=== PATIENT | male | born 1965 | race Caucasian/White ===

== ENCOUNTER 2018-04-02 15:32 | Observation (INO) | payer OTHER, SELFPAY ==
[2018-04-02] VITALS (11 sets, daily range): BP systolic 112–147; BP diastolic 68–98; PULSE 92–122; RESP 18–22; TEMP 36.7–40.1; O2SAT 92–99; BMI 30.4
--- NOTE | 2018-04-02 15:50 | DI.RAD.S_ITS ---
PROCEDURE: XR CHEST 1V INDICATIONS: Fever of unknown origin TECHNIQUE: One view of the chest was acquired. COMPARISON: [facility], , CHEST 1 VIEW, 06/24/2014, 1:37. FINDINGS: Surgical changes and devices: None. Lungs and pleura: No pleural effusions or pneumothorax. Lungs are clear. Mediastinum: Mediastinal contours appear normal. Heart size is normal. Bones and chest wall: No suspicious bony lesions. Overlying soft tissues appear unremarkable. IMPRESSION: Reduced inspiratory volume, no pneumonia found. A followup PA and lateral chest plain film may be warranted to provide improved visualization of the lower third of the lung parenchyma, largely obscured by reduced inspiration. Dictated by: Sandor Love M.D. on 04/02/2018 at 16:48 Approved by: Sandor Love M.D. on 04/02/2018 at 16:49
[2018-04-02] MEDS: ACETAMINOPHEN 325 MG TABLET 975 MG PO (16:13)
[2018-04-02] MEDS: SODIUM CHLORIDE 0.9% 1,000 ML 1000 ML IV (16:13)
[2018-04-02 16:16] LABS: INR 1.4 (0.9-1.3); Prothrombin Time 15.1 SECONDS (10.1-12.7)
[2018-04-02 16:19] LABS: PTT Partial Thromboplastin Tim 41 SECONDS (26.4-36.2)
--- NOTE | 2018-04-02 16:22 | ED.FEVER ---
HPI - Fever General Chief Complaint: Fever Stated Complaint: EXHAUSTED TYROID PROBLEM Time Seen by Provider: 04/02/18 15:49 Source: patient and family Mode of arrival: ambulatory Limitations: no limitations History of Present Illness HPI Narrative: Patient is a 52-year-old male with a history of Tio's disease and hypothyroidism brought in by his daughter for concerns of altered mental status and fevers. Patient's daughter reports that patient was at his normal state health last evening when his daughter state that he drank ?bad milk? patient's daughter states that afterwards he started throwing up. Then developed fever. He did take an extra dose of his [place]'s medication last night because he thought that he could potentially be in a adrenal crisis. She states that his symptoms continued today. She called him multiple times today while she was at work and noticed that he was becoming less and less alert. She brought him in the emergency department for evaluation. Patient was unable to provide any significant history. Related Data Home Medications Medication Instructions Recorded Confirmed levothyroxine 100 mcg PO DAILY #0 06/07/12 04/02/18 fludrocortisone 0.1 mg PO DAILY 04/02/18 04/02/18 hydrocortisone 30 mg PO DAILY 04/02/18 04/02/18 [facility] Medical History Addisons disease (Acute) Hypothyroid (Acute) Atrial fibrillation (Ruled-out) Dementia (Ruled-out) Surgical History No pertinent past surgical history (Acute) Exam Initial Vital Signs Initial Vital Signs: Vital Signs Temperature 104.1 F H 04/02/18 15:54 Pulse Rate 120 H 04/02/18 15:54 Respiratory Rate 19 04/02/18 15:54 Blood Pressure 129/89 H 04/02/18 15:54 Pulse Oximetry 99 04/02/18 15:54 Const General: well developed, well groomed and ill appearing Orientation: alert, awake, not oriented x3, oriented to person, not oriented to time and confused HENIA Head: normal to inspection and normocephalic Resp Effort & Inspection: normal respiratory effort Auscultation: clear to auscultation bilaterally Cardio Rate: tachycardic Rhythm: regular rhythm Pulses: radial pulses present GI Inspection: non-distended Palpation: soft and No tender Skin Lesions: no lesions Rashes: no rashes Neuro General: alert, awake and moves all extremities Extrem General: normal to inspection Psych Appearance: grossly normal and well kempt Scores GCS [place] coma scale eye opening: Spontaneous [place] coma scale verbal response: Orientated [place] coma scale motor response: Obey commands [place] coma scale total score: 15 Course Orders Ordered: ED Orders 04/02/18 15:45 Aldosterone Stat Blood Culture Stat Complete Blood Count AUTO DIFF Stat Comprehensive Metabolic Panel Stat Cortisol Random Stat Lactate (Lactic Acid) Stat Lipase Stat Partial Thromboplastin Time Stat Procalcitonin Stat Prothrombin Time INR Stat Thyroid Stimulating Hormone Stat Triiodothyronine T3 Free Stat 04/02/18 15:50 XR chest 1V Stat Urinalysis and Microscopic Stat 04/03/18 Comprehensive Metabolic Panel Routine 04/03/18 05:00 Basic Metabolic Panel Routine Fludrocortisone Acetate (Florinef) 0.1 mg PO DAILY [facility] Heparin Sodium (Porcine) (Heparin) 5,000 unit SUBCUT BID [facility] Hydrocortisone (Solu-Cortef) 100 mg IV Q6HR [facility] Sodium Chloride (Normal Saline 0.9%) 1,000 mls @ 200 mls/hr IV CONT MANUEL Last Admin: 04/02/18 16:45 Dose: 200 mls/hr Ciprofloxacin (Cipro) 400 mg in 200 mls @ 200 mls/hr IV Q12H MANU[facility] Dextrose/Sodium Chloride (Dextrose 5%-0.9% Ns) 1,000 mls @ 150 mls/hr IV CONT MANUEL Levothyroxine Sodium (Synthroid) 100 mcg PO DAILY [facility] Pantoprazole Sodium (Protonix) 40 mg IV DAILY [facility] Discontinued Medications Acetaminophen (Tylenol) 975 mg PO NOW ONE Stop: 04/02/18 15:51 Last Admin: 04/02/18 16:13 Dose: 975 mg Dexamethasone (Decadron) 4 mg IV NOW ONE Stop: 04/02/18 16:33 Last Admin: 04/02/18 16:44 Dose: 4 mg Hydrocortisone (Cortef) 30 mg PO DAILY [facility] Sodium Chloride (Normal Saline 0.9%) 1,000 mls @ 1,000 mls/hr IV BOLUS ONE Stop: 04/02/18 16:49 Last Admin: 04/02/18 16:13 Dose: 1,000 mls/hr Vital Signs - 8 hr 04/02/18 15:54 04/02/18 16:13 04/02/18 16:49 Temperature 104.1 F H Pulse Rate 120 H 122 H 101 H Respiratory Rate 19 22 22 Blood Pressure 129/89 H Blood Pressure [Right Arm] 147/90 H 132/98 H Pulse Oximetry 99 96 04/02/18 17:32 04/02/18 17:36 04/02/18 17:57 Temperature 98.1 F 98.1 F Pulse Rate 100 H Respiratory Rate 22 Blood Pressure Blood Pressure [Right Arm] 116/75 Pulse Oximetry 99 04/02/18 18:02 Temperature 98.1 F Pulse Rate Respiratory Rate Blood Pressure Blood Pressure [Right Arm] Pulse Oximetry MDM - Fever Medical Records Attestation: I reviewed the patient's medical records. Lab Data Attestation: I reviewed the patient's lab results. Result diagrams: 04/02/18 15:45 04/02/18 15:45 Lab Results 04/02/18 04/02/18 04/02/18 Range/Units 15:45 15:45 15:45 WBC 9.2 (4.5-11.0) X10^3/uL RBC 5.83 (4.5-5.9) X10^6/uL Hgb 17.4 (13.5-17.5) g/dL Hct 49.6 (41-53) % MCV 85.1 (80-100) fL MCH 29.9 (26-34) PG MCHC 35.1 (30-36) % RDW 14.4 (11.6-14.8) % Plt Count 173 (150-400) X10^3/uL Neut % (Auto) 58.4 (50-75) % Lymph % (Auto) 29.0 (25-40) % [place] % (Auto) 10.8 (3-14) % Eos % (Auto) 1.3 L (2-4) % Baso % (Auto) 0.5 (0-2) % Neut # (Auto) 5400 (6432-0448) /uL PT 15.1 H (10.1-12.7) SECONDS INR 1.4 H (0.9-1.3) APTT 41 H (26.4-36.2) SECONDS Sodium (137-145) mmol/L Potassium (3.4-5.1) mmol/L Chloride (98-107) mmol/L Carbon Dioxide (22-32) mmol/L BUN (9-20) mg/dL Creatinine (0.66-1.25) mg/dL Estimated GFR (>60) mL/min BUN/Creatinine Ratio (6-22) Glucose (70-100) mg/dL Lactate (0.7-2.1) mmol/L Calcium (8.4-10.2) mg/dL Total Bilirubin (0.2-1.3) mg/dL AST (17-59) IU/L ALT (21-72) IU/L Alkaline Phosphatase (38-126) U/L Total Protein (6.3-8.2) g/dL Albumin (3.5-5.0) g/dL Globulin (1.7-4.1) g/dL Albumin/Globulin Ratio (1.0-2.8) Lipase (23-300) U/L Procalcitonin 1.54 H (<0.5) ng/mL TSH (0.47-4.68) uIU/mL Free T3 (2.77-5.27) pg/mL Random Cortisol ug/dL 04/02/18 04/02/18 04/02/18 Range/Units 15:45 15:45 15:45 WBC (4.5-11.0) X10^3/uL RBC (4.5-5.9) X10^6/uL Hgb (13.5-17.5) g/dL Hct (41-53) % MCV (80-100) fL MCH (26-34) PG MCHC (30-36) % RDW (11.6-14.8) % Plt Count (150-400) X10^3/uL Neut % (Auto) (50-75) % Lymph % (Auto) (25-40) % [place] % (Auto) (3-14) % Eos % (Auto) (2-4) % Baso % (Auto) (0-2) % Neut # (Auto) (1086-0122) /uL PT (10.1-12.7) SECONDS INR (0.9-1.3) APTT (26.4-36.2) SECONDS Sodium 140 (137-145) mmol/L Potassium 3.7 (3.4-5.1) mmol/L Chloride 97 L (98-107) mmol/L Carbon Dioxide 26 (22-32) mmol/L BUN 17 (9-20) mg/dL Creatinine 1.70 H (0.66-1.25) mg/dL Estimated GFR 42.7 L (>60) mL/min BUN/Creatinine Ratio 10.0 (6-22) Glucose 87 (70-100) mg/dL Lactate 1.2 (0.7-2.1) mmol/L Calcium 9.0 (8.4-10.2) mg/dL Total Bilirubin 1.9 H (0.2-1.3) mg/dL AST 50 (17-59) IU/L ALT 26 (21-72) IU/L Alkaline Phosphatase 78 (38-126) U/L Total Protein 8.3 H (6.3-8.2) g/dL Albumin 4.8 (3.5-5.0) g/dL Globulin 3.5 (1.7-4.1) g/dL Albumin/Globulin Ratio 1.4 (1.0-2.8) Lipase 123 (23-300) U/L Procalcitonin (<0.5) ng/mL TSH 2.36 (0.47-4.68) uIU/mL Free T3 2.76 L (2.77-5.27) pg/mL Random Cortisol ug/dL 04/02/18 Range/Units 15:45 WBC (4.5-11.0) X10^3/uL RBC (4.5-5.9) X10^6/uL Hgb (13.5-17.5) g/dL Hct (41-53) % MCV (80-100) fL MCH (26-34) PG MCHC (30-36) % RDW (11.6-14.8) % Plt Count (150-400) X10^3/uL Neut % (Auto) (50-75) % Lymph % (Auto) (25-40) % [place] % (Auto) (3-14) % Eos % (Auto) (2-4) % Baso % (Auto) (0-2) % Neut # (Auto) (6242-3465) /uL PT (10.1-12.7) SECONDS INR (0.9-1.3) APTT (26.4-36.2) SECONDS Sodium (137-145) mmol/L Potassium (3.4-5.1) mmol/L Chloride (98-107) mmol/L Carbon Dioxide (22-32) mmol/L BUN (9-20) mg/dL Creatinine (0.66-1.25) mg/dL Estimated GFR (>60) mL/min BUN/Creatinine Ratio (6-22) Glucose (70-100) mg/dL Lactate (0.7-2.1) mmol/L Calcium (8.4-10.2) mg/dL Total Bilirubin (0.2-1.3) mg/dL AST (17-59) IU/L ALT (21-72) IU/L Alkaline Phosphatase (38-126) U/L Total Protein (6.3-8.2) g/dL Albumin (3.5-5.0) g/dL Globulin (1.7-4.1) g/dL Albumin/Globulin Ratio (1.0-2.8) Lipase (23-300) U/L Procalcitonin (<0.5) ng/mL TSH (0.47-4.68) uIU/mL Free T3 (2.77-5.27) pg/mL Random Cortisol < 0.16 ug/dL Imaging Data Chest x-ray: Radiologist's impression: [place] [address] XRay Report Signed Patient: Jacob Mcdonough [facility]#: [id number] : 1965Acct:[id number] Age/Sex: 52 / MDate of Service: 04/02/18 Loc: ED Accession Number: [id number] Procedure: XR chest 1V Ordering Provider: Anshu Shin D.O. PROCEDURE: XR CHEST 1V INDICATIONS: Fever of unknown origin TECHNIQUE: One view of the chest was acquired. COMPARISON: [facility] , CHEST 1 VIEW, 06/24/2014, 1:37. FINDINGS: Surgical changes and devices: None. Lungs and pleura: No pleural effusions or pneumothorax. Lungs are clear. Mediastinum: Mediastinal contours appear normal. Heart size is normal. Bones and chest wall: No suspicious bony lesions. Overlying soft tissues appear unremarkable. IMPRESSION: Reduced inspiratory volume, no pneumonia found. A followup PA and lateral chest plain film may be warranted to provide improved visualization of the lower third of the lung parenchyma, largely obscured by reduced inspiration. Dictated by: Sandro Love M.D. on 04/02/2018 at 16:48 Approved by: Sandor Love M.D. on 04/02/2018 at 16:49 [facility] Narrative Medical decision making narrative: 52-year-old male with what sounds like a gastroenteritis that occurred last evening. His daughter reports that he did not take his steroids this morning because he was feeling so poorly. Patient was somewhat unable/unwilling to provide answers to questions upon arrival. Was tachycardic which improved with fluids. Does not have an elevated white blood cell count. Chest x-ray was negative. Initially he reported headache but no neck pain then upon re-evaluation who reported no headache. I have low concern for meningitis. Urinalysis still pending. No skin changes concerning for cellulitis. I feel that his fever and tachycardia related to the gastritis from last evening. Will hold on antibiotics for now. He was given dexamethasone here in the emergency department. Discussed the case with Dr. Warren with Internal Medicine who accepts the patient for admission and continued evaluation and treatment. He agreed with no antibiotics for now. Blood cultures ordered. Discharge Plan Departure Patient Disposition: Admitted As Inpatient Clinical Impression: Fever of unknown origin, Gastroenteritis, Tio's disease, Hypothyroidism Discharge Date/Time: 04/02/18 18:03 Interventions: ED Discharge Assessment Last Done: 04/02/18 18:02 Admit Date/Time: 04/02/18 17:38 Admit Provider: John Paul Murdock
[2018-04-02 16:24] LABS: Lactate (Lactic Acid) 1.2 mmol/L (0.7-2.1)
[2018-04-02 16:25] LABS: Alanine Aminotransferase 26 IU/L (21-72); Albumin 4.8 g/dL (3.5-5.0); Albumin Globulin Ratio 1.4 (1.0-2.8); Alkaline Phosphatase 78 U/L (38-126); Aspartate Aminotransferase 50 IU/L (17-59); Bilirubin Total 1.9 mg/dL (0.2-1.3); Blood Urea Nitrogen 17 mg/dL (9-20); Carbon Dioxide 26 mmol/L (22-32); Chloride 97 mmol/L (98-107); Estimated Glomerular Filt Rate 42.7 mL/min (>60); Globulin 3.5 g/dL (1.7-4.1); Glucose 87 mg/dL (70-100); HEMOLYSIS 16 (0-50); Lipase 123 U/L (23-300); Potassium 3.7 mmol/L (3.4-5.1); Sodium 140 mmol/L (137-145); Total Protein 8.3 g/dL (6.3-8.2)
[2018-04-02 16:30] LABS: Add Manual Diff / Slide Review NO; Basophils Percent Auto 0.5 % (0-2); Eosinophils Percent Auto 1.3 % (2-4); Hematocrit 49.6 % (41-53); Hemoglobin 17.4 g/dL (13.5-17.5); Mean Corpuscular HGB Conc 35.1 % (30-36); Mean Corpuscular Hemoglobin 29.9 PG (26-34); Mean Corpuscular Volume 85.1 fL (80-100); Monocytes Percent Auto 10.8 % (3-14); Neutrophils Absolute Auto 5400 /uL (3000-5900); Neutrophils Percent Auto 58.4 % (50-75); Platelet Count 173 X10^3/uL (150-400); Red Blood Cell Count 5.83 X10^6/uL (4.5-5.9); Red Cell Distribution Width 14.4 % (11.6-14.8); White Blood Cell Count 9.2 X10^3/uL (4.5-11.0)
[2018-04-02] MEDS: DEXAMETHASONE 4 MG/ML VIAL IV (16:44)
[2018-04-02] MEDS: SODIUM CHLORIDE 0.9% 1,000 ML 200 ML IV (16:45)
[2018-04-02 16:56] LABS: Procalcitonin 1.54 ng/mL (<0.5)
[2018-04-02 17:14] LABS: Free T3, Triiodothyronine Free 2.76 pg/mL (2.77-5.27)
--- NOTE | 2018-04-02 17:16 | PC.NURSE ---
Hospitalist here to see
[2018-04-02 17:23] LABS: Cortisol Random < 0.16 ug/dL
[2018-04-02 17:27] LABS: Thyroid Stimulating Hormone 2.36 uIU/mL (0.47-4.68)
--- NOTE | 2018-04-02 19:23 | PM.HP.1 ---
History of Present Illness Date Patient Seen: 04/02/18 Time Patient Seen: 18:23 Chief complaint: EXHAUSTED TYROID PROBLEM Narrative: This very pleasant gentleman who works for the [employer] and has to drive on a lot and came to the ER for feeling lethargic and somewhat obtunded still is sleepy this answers questions sparsely but is very occluding and well oriented His daughter gives a history that he probably had some spoiled milk yesterday and started vomiting since last night patient does not give a history of abdominal pain diarrhea or fever chills and rigors during the ER he had a temperature of 104? occurred once He does not complain of any headache visual blurring or any other neurological symptoms Says he has [place]'s disease diagnosed years ago because of general fatigue he also was found to have hypothyroid both I believe based on a autoimmune disorder Patient History Medical History Addisons disease (Acute) Hypothyroid (Acute) Atrial fibrillation (Ruled-out) Dementia (Ruled-out) Surgical History No pertinent past surgical history (Acute) Comment: He has not had any pituitary surgery Family & Social History Family History: Reviewed 04/02/18 by John Paul Murdock MD Social History: He lives with his daughter and a friend works for the [employer] Tobacco & Substance use: Denies smoking tobacco or drink alcohol Meds Home Medications Medication Instructions Recorded Confirmed Type levothyroxine 100 mcg PO DAILY #0 06/07/12 04/02/18 History fludrocortisone 0.1 mg PO DAILY 04/02/18 04/02/18 History hydrocortisone 30 mg PO DAILY 04/02/18 04/02/18 History Review of Systems Review of Systems A 12 point review of systems other than general fatigue he himself does not complain of any other symptoms the briefly commented on having a headache to the ER doctor but subsequently he says he does not have any headache all other systems are negative Exam Vital Signs (past 8 hours): - 04/02/18 15:54 04/02/18 16:13 04/02/18 16:49 Temperature 104.1 F H Pulse Rate 120 H 122 H 101 H Respiratory Rate 19 22 22 Blood Pressure 129/89 H Blood Pressure [Right Arm] 147/90 H 132/98 H Pulse Oximetry 99 96 04/02/18 17:32 04/02/18 17:36 04/02/18 17:57 Temperature 98.1 F 98.1 F Pulse Rate 100 H Respiratory Rate 22 Blood Pressure Blood Pressure [Right Arm] 116/75 Pulse Oximetry 99 04/02/18 18:02 Temperature 98.1 F Pulse Rate Respiratory Rate Blood Pressure Blood Pressure [Right Arm] Pulse Oximetry Oxygen Delivery Method Room Air Const General: cooperative, healthy appearing, comfortable and well developed Orientation: oriented to person, oriented to place and oriented to time [facility] Head: normal to inspection Ears: hearing grossly normal bilaterally Nose: external nose normal Face and sinus: normal facial exam Eyes Other: conjuctiva injected Neck Neck: normal visual inspection, full ROM and no meningeal signs Thyroid: thyroid normal Resp Effort & Inspection: normal respiratory effort, able to speak in complete sentences, no respiratory distress and no use of accessory muscles Auscultation: clear to auscultation bilaterally Cardio Rate: tachycardic Rhythm: regular rhythm Heart Sounds: S1 normal and S2 normal GI Inspection: normal to inspection Palpation: soft and no hepatosplenomegaly Auscultation: normal bowel sounds Skin General: no rashes or lesions noted Neuro General: oriented (place person ), no meningeal signs and no focal motor deficits Cranial Nerves: CN's II-XI intact bilaterally Speech: speech normal Motor: muscle tone normal throughout Extrem Other: nil edema Psych Appearance: grossly normal Mood: congruent mood Affect: normal affect Thought Process: normal Judgment: judgment good Objective Labs Result Diagrams: 04/02/18 15:45 04/02/18 15:45 Labs: Laboratory Results - last 24 hr 04/02/18 04/02/18 04/02/18 15:45 15:45 15:45 WBC 9.2 RBC 5.83 Hgb 17.4 Hct 49.6 MCV 85.1 MCH 29.9 MCHC 35.1 RDW 14.4 Plt Count 173 Neut % (Auto) 58.4 Lymph % (Auto) 29.0 [place] % (Auto) 10.8 Eos % (Auto) 1.3 L Baso % (Auto) 0.5 Neut # (Auto) 5400 PT 15.1 H INR 1.4 H APTT 41 H Sodium Potassium Chloride Carbon Dioxide BUN Creatinine Estimated GFR BUN/Creatinine Ratio Glucose Lactate Calcium Total Bilirubin AST ALT Alkaline Phosphatase Total Protein Albumin Globulin Albumin/Globulin Ratio Lipase Procalcitonin 1.54 H TSH Free T3 Random Cortisol 04/02/18 04/02/18 04/02/18 15:45 15:45 15:45 WBC RBC Hgb Hct MCV MCH MCHC RDW Plt Count Neut % (Auto) Lymph % (Auto) [place] % (Auto) Eos % (Auto) Baso % (Auto) Neut # (Auto) PT INR APTT Sodium 140 Potassium 3.7 Chloride 97 L Carbon Dioxide 26 BUN 17 Creatinine 1.70 H Estimated GFR 42.7 L BUN/Creatinine Ratio 10.0 Glucose 87 Lactate 1.2 Calcium 9.0 Total Bilirubin 1.9 H AST 50 ALT 26 Alkaline Phosphatase 78 Total Protein 8.3 H Albumin 4.8 Globulin 3.5 Albumin/Globulin Ratio 1.4 Lipase 123 Procalcitonin TSH 2.36 Free T3 2.76 L Random Cortisol 04/02/18 15:45 WBC RBC Hgb Hct MCV MCH MCHC RDW Plt Count Neut % (Auto) Lymph % (Auto) [place] % (Auto) Eos % (Auto) Baso % (Auto) Neut # (Auto) PT INR APTT Sodium Potassium Chloride Carbon Dioxide BUN Creatinine Estimated GFR BUN/Creatinine Ratio Glucose Lactate Calcium Total Bilirubin AST ALT Alkaline Phosphatase Total Protein Albumin Globulin Albumin/Globulin Ratio Lipase Procalcitonin TSH Free T3 Random Cortisol < 0.16 Assessment & Plan Plan: Assessment/Plan Narrative: 1. Acute febrile illness with a temperature 104? but the patient does not look toxic the white count cells are normal chest x-ray is normal 2. Mild elevation of bilirubin with no other enzyme elevation in the liver may be due to Gilbert's fasting 3. Conjunctival injections of this possible acute viral syndrome 4. history of vomiting following drinking possibly spoiled milk this suggests possible gastroenteritis 5. Known [place]'s disease and autoimmune basis on as supplement with his cortisone as well as fludrocortisone 6. Known hypothyroid on supplement Plan to be admitted to ICU monitoring IV fluids IV Cipro and Flagyl in case it is an gastrointestinal infection though highly likely to be viral Will give IV cortisone in place of his oral supplement at a good dose to cover possible stress of illness His hemoglobin is 17.1 most likely due to dehydration BUN and creatinine and a slight elevation of creatinine and BUN is normal will continue to monitor the renal function Time Spent With Patient Time with patient: Greater than 35 minutes
[2018-04-02] MEDS: CIPROFLOXACIN 400 MG/200 ML PIGGYBACK 200 MG IV (19:45)
[2018-04-02] MEDS: HYDROCORTISONE 100 MG/2 ML VIAL IV ×2 (19:45→23:59)
[2018-04-02] MEDS: metroNIDAZOLE 500 MG/100 ML PIGGYBACK 100 MG IV (20:59)
[2018-04-02] MEDS: DEXTROSE 5%-0.9% NS 1,000 ML 150 ML IV (21:05)
[2018-04-02] MEDS: HEPARIN 5,000 UNIT/ML VIAL 5000 UNIT SUBCUT (21:05)
--- NOTE | 2018-04-02 21:55 | PC.NURSE ---
Evening Shift Note Pt arrived to floor alert to speech, answering all questions appropriately. VSS, 94% on RA, no complaints of pain. Tele SR w/ PVCs. Awaiting BC and UA results. Pt using urinal at bedside and able to turn self in bed. R AC PIV w/ D5NS @ 150ml/hr.
[2018-04-02 22:06] LABS: Bacteria Urine None Seen; WBC Urine None Seen (0-5/HPF)
[2018-04-02 22:08] LABS: Appearance Urine UA CLEAR; Bilirubin Urine UA NEGATIVE (NEGATIVE); Color Urine UA YELLOW; Glucose Urine UA NEGATIVE (Normal); Ketones Urine UA 1+ (NEGATIVE); Leukocyte Esterase Urine UA NEGATIVE (NEGATIVE); Nitrite Urine UA Negative (Negative); Occult Blood Urine UA 1+ (Negative); Protein Urine UA TRACE (Negative); Urobilinogen Urine UA 0.2 E.U./dL (0.2)
[2018-04-02 22:16] LABS: Culture Indicated Urine Cult Not Indicated; Mucus Urine 2+ (Negative); RBC Urine 1-5/HPF (0-5/HPF); Squamous Epithelial Cell Urine None Seen
[2018-04-03] VITALS: BP 109/72; PULSE 68; RESP 14; TEMP 36.6; O2SAT 95
[2018-04-03] MEDS: DEXTROSE 5%-0.9% NS 1,000 ML 150 ML IV ×2 (04:16→12:08)
[2018-04-03 04:49] VITALS: BP 134/67; PULSE 94; RESP 19; TEMP 36.6; O2SAT 95
[2018-04-03 05:10] LABS: Add Manual Diff / Slide Review NO; Basophils Percent Auto 0.3 % (0-2); Hemoglobin 16.6 g/dL (13.5-17.5); Lymphocytes Percent Auto 14.1 % (25-40); Mean Corpuscular HGB Conc 35.3 % (30-36); Mean Corpuscular Hemoglobin 29.9 PG (26-34); Mean Corpuscular Volume 84.7 fL (80-100); Monocytes Percent Auto 2.3 % (3-14); Neutrophils Absolute Auto 5400 /uL (3000-5900); Neutrophils Percent Auto 83.3 % (50-75); Platelet Count 128 X10^3/uL (150-400); Red Blood Cell Count 5.54 X10^6/uL (4.5-5.9); Red Cell Distribution Width 14.1 % (11.6-14.8); White Blood Cell Count 6.5 X10^3/uL (4.5-11.0)
[2018-04-03] MEDS: metroNIDAZOLE 500 MG/100 ML PIGGYBACK 100 MG IV ×2 (05:34→13:38)
[2018-04-03 05:44] LABS: Alanine Aminotransferase 29 IU/L (21-72); Albumin 3.7 g/dL (3.5-5.0); Albumin Globulin Ratio 1.3 (1.0-2.8); Alkaline Phosphatase 56 U/L (38-126); Aspartate Aminotransferase 59 IU/L (17-59); BUN Creatinine Ratio 13.6 (6-22); Bilirubin Total 1.4 mg/dL (0.2-1.3); Blood Urea Nitrogen 15 mg/dL (9-20); Calcium 8.1 mg/dL (8.4-10.2); Carbon Dioxide 28 mmol/L (22-32); Chloride 102 mmol/L (98-107); Estimated Glomerular Filt Rate > 60.0 mL/min (>60); Globulin 2.8 g/dL (1.7-4.1); Glucose 167 mg/dL (70-100); Potassium 4.1 mmol/L (3.4-5.1); Sodium 141 mmol/L (137-145); Total Protein 6.5 g/dL (6.3-8.2)
[2018-04-03 06:00] LABS: Bilirubin Unconjugated 1.1 mg/dL (0.0-1.1); HEMOLYSIS < 15 (0-50)
[2018-04-03] MEDS: HYDROCORTISONE 100 MG/2 ML VIAL IV ×2 (06:36→11:27)
[2018-04-03 08:00] VITALS: BP 103/76; PULSE 87; RESP 16; TEMP 36.8; O2SAT 96
[2018-04-03] MEDS: LEVOTHYROXINE 100 MCG TABLET PO (08:46)
[2018-04-03] MEDS: FLUDROCORTISONE 0.1 MG TABLET PO (08:46)
[2018-04-03] MEDS: HEPARIN 5,000 UNIT/ML VIAL 5000 UNIT SUBCUT (08:46)
[2018-04-03] MEDS: CIPROFLOXACIN 400 MG/200 ML PIGGYBACK 200 MG IV (08:47)
[2018-04-03] MEDS: PANTOPRAZOLE 40 MG VIAL IV (08:47)
[2018-04-03 11:40] VITALS: BP 123/55; PULSE 97; RESP 16; TEMP 36.9; O2SAT 99
[2018-04-03 11:58] VITALS: BP 123/55; PULSE 97; RESP 16; TEMP 36.9; O2SAT 99
--- NOTE | 2018-04-03 14:05 | PM.PN.1 ---
Subjective Date Patient Seen: 04/03/18 Time Patient Seen: 12:05 Interval history: Admitted yesterday from home with a history of diarrhea and vomiting apparently is was not feeling well after he took spoiled milk he normally takes 30 mg of hydrocortisone the took 1 dose of that with the milk which she thinks could have been spoiled 2 nausea became nauseated and vomited the tablets he took another tablet with the same male can be started developing diarrhea after that he became very weak and his daughter brought him to the emergency room he was somewhat obtunded initially but subsequently was able to answer questions but was lethargic however this morning he feels much better he had a spike of temperature 104? 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 he also has hypothyroid both being supplemented the hydrocortisone being supplemented with IV He has remained nausea free and he does not have diarrhea now however he was treated with Cipro and Flagyl because of fever of 104 the white count was normal conjunctiva somewhat injected Plan is to discharge Chief 24 hr the day prior XL and has no further diarrhea and he may not require any antibiotics Exam Vital Signs (past 8 hours): - 04/03/18 08:00 04/03/18 11:40 04/03/18 11:58 Temperature 98.3 F 98.4 F 98.4 F Pulse Rate 87 97 H 97 H Respiratory Rate 16 16 16 Blood Pressure 103/76 123/55 H 123/55 H Pulse Oximetry 96 99 99 Oxygen Delivery Method Room Air Const General: cooperative, healthy appearing, comfortable and well developed Orientation: alert, awake and oriented x3 HENMT Head: normal to inspection, normocephalic and atraumatic Ears: hearing grossly normal bilaterally Nose: external nose normal Face and sinus: normal facial exam Mouth: oral mucosae normal Eyes Eyelids: eyelids normal Conjunctivae: conjunctivae normal Sclera: sclerae normal Pupils: PERRL EOM: EOM intact bilaterally Neck Neck: normal visual inspection, full ROM and No JVD Thyroid: thyroid normal Resp Effort & Inspection: normal respiratory effort, able to speak in complete sentences, no respiratory distress and no use of accessory muscles Auscultation: clear to auscultation bilaterally GI Inspection: normal to inspection Palpation: soft and no hepatosplenomegaly Skin General: no rashes or lesions noted Neuro General: alert, awake, oriented x3 and no meningeal signs Cranial Nerves: CN's II-XI intact bilaterally Cognition: normal cognition Speech: speech normal Gait: normal gait Motor: muscle tone normal throughout Extrem Other: nil edema Psych Appearance: grossly normal Mental Status: mental status grossly normal Speech and Movement: speech and movement normal Mood: congruent mood Affect: normal affect Attitude: cooperative Thought Process: normal Thought Content: normal Judgment: judgment good Objective Labs Result Diagrams: 04/03/18 04:34 04/03/18 04:34 Labs: Laboratory Results - last 24 hr 04/02/18 04/02/18 04/02/18 15:45 15:45 15:45 WBC 9.2 RBC 5.83 Hgb 17.4 Hct 49.6 MCV 85.1 MCH 29.9 MCHC 35.1 RDW 14.4 Plt Count 173 Neut % (Auto) 58.4 Lymph % (Auto) 29.0 [place] % (Auto) 10.8 Eos % (Auto) 1.3 L Baso % (Auto) 0.5 Neut # (Auto) 5400 PT 15.1 H INR 1.4 H APTT 41 H Sodium Potassium Chloride Carbon Dioxide BUN Creatinine Estimated GFR BUN/Creatinine Ratio Glucose Lactate Calcium Total Bilirubin Conjugated Bilirubin Unconjugated Bilirubin AST ALT Alkaline Phosphatase Total Protein Albumin Globulin Albumin/Globulin Ratio Lipase Procalcitonin 1.54 H TSH Free T3 Random Cortisol Urine Color Urine Appearance Urine pH Ur Specific [place] Urine Protein Urine Glucose (UA) Urine Ketones Urine Occult Blood Urine Nitrate Urine Bilirubin Urine Urobilinogen Ur Leukocyte Esterase Urine RBC Urine WBC Ur Squamous Epith Cells Urine Bacteria Urine Mucus Ur Culture Indicated? Micro UA Comment Nasal Screen MRSA (PCR) 04/02/18 04/02/18 04/02/18 15:45 15:45 15:45 WBC RBC Hgb Hct MCV MCH MCHC RDW Plt Count Neut % (Auto) Lymph % (Auto) [place] % (Auto) Eos % (Auto) Baso % (Auto) Neut # (Auto) PT INR APTT Sodium 140 Potassium 3.7 Chloride 97 L Carbon Dioxide 26 BUN 17 Creatinine 1.70 H Estimated GFR 42.7 L BUN/Creatinine Ratio 10.0 Glucose 87 Lactate 1.2 Calcium 9.0 Total Bilirubin 1.9 H Conjugated Bilirubin Unconjugated Bilirubin AST 50 ALT 26 Alkaline Phosphatase 78 Total Protein 8.3 H Albumin 4.8 Globulin 3.5 Albumin/Globulin Ratio 1.4 Lipase 123 Procalcitonin TSH 2.36 Free T3 2.76 L Random Cortisol Urine Color Urine Appearance Urine pH Ur Specific [place] Urine Protein Urine Glucose (UA) Urine Ketones Urine Occult Blood Urine Nitrate Urine Bilirubin Urine Urobilinogen Ur Leukocyte Esterase Urine RBC Urine WBC Ur Squamous Epith Cells Urine Bacteria Urine Mucus Ur Culture Indicated? Micro UA Comment Nasal Screen MRSA (PCR) 04/02/18 04/02/18 04/02/18 15:45 18:00 22:00 WBC RBC Hgb Hct MCV MCH MCHC RDW Plt Count Neut % (Auto) Lymph % (Auto) [place] % (Auto) Eos % (Auto) Baso % (Auto) Neut # (Auto) PT INR APTT Sodium Potassium Chloride Carbon Dioxide BUN Creatinine Estimated GFR BUN/Creatinine Ratio Glucose Lactate Calcium Total Bilirubin Conjugated Bilirubin Unconjugated Bilirubin AST ALT Alkaline Phosphatase Total Protein Albumin Globulin Albumin/Globulin Ratio Lipase Procalcitonin TSH Free T3 Random Cortisol < 0.16 Urine Color Yellow Urine Appearance Clear Urine pH 5.0 Ur Specific [place] 1.020 Urine Protein Trace H Urine Glucose (UA) Negative Urine Ketones 1+ H Urine Occult Blood 1+ H Urine Nitrate Negative Urine Bilirubin Negative Urine Urobilinogen 0.2 Ur Leukocyte Esterase Negative Urine RBC 1-5/hpf Urine WBC None seen Ur Squamous Epith Cells None seen Urine Bacteria None seen Urine Mucus 2+ H Ur Culture Indicated? Cult not indicated Micro UA Comment Not Reportable Nasal Screen MRSA (PCR) Negative for mrsa 04/03/18 04/03/18 04:34 04:34 WBC 6.5 RBC 5.54 Hgb 16.6 Hct 47.0 MCV 84.7 MCH 29.9 MCHC 35.3 RDW 14.1 Plt Count 128 L Neut % (Auto) 83.3 H D Lymph % (Auto) 14.1 L [place] % (Auto) 2.3 L Eos % (Auto) 0.0 L Baso % (Auto) 0.3 Neut # (Auto) 5400 PT INR APTT Sodium 141 Potassium 4.1 Chloride 102 Carbon Dioxide 28 BUN 15 Creatinine 1.10 Estimated GFR > 60.0 BUN/Creatinine Ratio 13.6 Glucose 167 H Lactate Calcium 8.1 L Total Bilirubin 1.4 H Conjugated Bilirubin 0.0 Unconjugated Bilirubin 1.1 AST 59 ALT 29 Alkaline Phosphatase 56 Total Protein 6.5 Albumin 3.7 Globulin 2.8 Albumin/Globulin Ratio 1.3 Lipase Procalcitonin TSH Free T3 Random Cortisol Urine Color Urine Appearance Urine pH Ur Specific [place] Urine Protein Urine Glucose (UA) Urine Ketones Urine Occult Blood Urine Nitrate Urine Bilirubin Urine Urobilinogen Ur Leukocyte Esterase Urine RBC Urine WBC Ur Squamous Epith Cells Urine Bacteria Urine Mucus Ur Culture Indicated? Micro UA Comment Nasal Screen MRSA (PCR) Assessment & Plan Plan: Assessment/Plan Narrative: 1. Acute febrile illness with a temperature 104? once subsequent temps normal but the patient does not look toxic the white count cells are normal chest x-ray is normal 2. Mild elevation of bilirubin with no other enzyme elevation in the liver may be due to Gilbert's fasting bili decreased today 3. Conjunctival injections of this possible acute viral syndrome 4. history of vomiting following drinking possibly spoiled milk this suggests possible gastroenteritis 5. 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 Known hypothyroid on supplement Plan to be admitted to ICU monitoring IV fluids IV Cipro and Flagyl in case it is an gastrointestinal infection though highly likely to be viral Will give IV cortisone in place of his oral supplement at a good dose to cover possible stress of illness His hemoglobin is 17.1 most likely due to dehydration BUN and creatinine and a slight elevation of creatinine and BUN is normal will continue to monitor the renal function Quality VTE Deep Vein Thrombosis/Pulmonary Embolism Present on Admission: Yes
[2018-04-03 15:43] VITALS: BP 118/85; PULSE 77; RESP 16; TEMP 36.8; O2SAT 99
--- NOTE | 2018-04-03 15:43 | CM.DANOTE ---
Patient is a 52 year old male who was admitted on 04/02/18 for Thyroid issues. Pt has [employer] for insurance and his PCP is Dr. Watson. EMR was reviewed. Per MD, pt has been hospitalized for similar a couple years ago and not medically stable for discharge yet. Per RN, pt is alert and oriented and currently no needs identified. SW met bedside with pt and explained role and pt confirmed that he lives at home with his Dtr and his is currently in [place]. Pt is independent at baseline and drives and denies any hx of HH or SNF. Pt states that he has been hospitalized for similar medical needs a couple years ago and currently does not anticipate any SW needs at d/c and states that his Dtr works across the street and can provide assist and transport if needed. Plan: SW to follow for likely pt d/c home with Dtr when medically stable. SW to follow for any further identified discharge planning needs. 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 No History Provided By Patient Medical Record Has Patient been admitted in last 30 No days? Prior Living Arrangements House Household Members children Type of transporation used prior to Drives own vehicle admit Independent with ADL's Yes Is patient alert and oriented? Yes Comment Patient is independent at baseline Caregiver for Another No: Dtr is old enough to work and care for herself Barriers to Discharge No Discharge Plan Home Transportation Arrangement Patient's Dtr works next door and likely can provide transport if needed. Referrals Initiated None needed Whiteboard Updated in Patient Room with Yes name and ext. # of Journeyman Pipe Welder Review Status In Process Next Review Type Continued Stay Review
--- NOTE | 2018-04-03 17:22 | P.DS_ITS ---
History of Present Illness Chief complaint: EXHAUSTED TYROID PROBLEM Narrative: This very pleasant gentleman who works for the [employer] and has to drive on a lot and came to the ER for feeling lethargic and somewhat obtunded still is sleepy this answers questions sparsely but is very occluding and well oriented His daughter gives a history that he probably had some spoiled milk yesterday and started vomiting since last night patient does not give a history of abdominal pain diarrhea or fever chills and rigors during the ER he had a temperature of 104? occurred once He does not complain of any headache visual blurring or any other neurological symptoms Says he has [place]'s disease diagnosed years ago because of general fatigue he also was found to have hypothyroid both I believe based on a autoimmune disorder Discharge Providers Date of admission: 04/02/18 17:38 Primary care physician: Anam Watson MD Discharge provider: Luciano Murdock MD Summary Discharge Diagnosis: 1. ACUTE GASTROENTERITIS DUE TO DRINKING SPOILED MILK CULTURES NO GROWTH TO DATE 2. KNOWN OMAIRA'S DISEASE WITH PARTIAL OMAIRA CRISIS AT THE TIME OF ADMISSION REQUIRING IV HYDROCORTISONE 3. HYPOTHYROID ON SUPPLEMENT Hospital Course: THIS GENTLEMAN WAS ADMITTED FOLLOWING DIARRHEA WELL NAUSEA AND VOMITING AFTER HE TOOK HIS HYDROCORTISONE PILL ALONG WITH SOME MILK THAT WAS SPOILED AFTER HE VOMITED THE TOOK ANOTHER TABLET OF THE CORTICOSTEROID WITH THE SAME MALE CAN BE STARTED HAVING RUNNY DIARRHEA WELL NAUSEA AND VOMITING AGAIN AND SO HE CAME TO THE ER TIME OF PRESENTATION THE ARTERY WAS OBTUNDED BUT QUICKLY RECOVERED AFTER THE IV CORTICOSTEROIDS HE WAS GIVEN HERE HE REMAINED AFEBRILE THOUGH THE INITIAL ADMISSION TEMPERATURE WAS AT 104? ALL HIS LABS WERE WITHIN NORMAL LIMITS BLOOD CULTURE NO GROWTH SO FAR CLINICALLY HAS IMPROVED QUITE A BIT THIS REMAINED AFEBRILE PULSE 70S FULLY CONSCIOUS COOPERATIVE MENTAL STATUS NORMAL HE WILL BE DISCHARGED TO CONTINUE HOME MEDICATIONS Exam Vital Signs (past 8 hours): - 04/03/18 11:40 04/03/18 11:58 04/03/18 15:43 Temperature 98.4 F 98.4 F 98.2 F Pulse Rate 97 H 97 H 77 Respiratory Rate 16 16 16 Blood Pressure 123/55 H 123/55 H 118/85 H Pulse Oximetry 99 99 99 Oxygen Delivery Method Room Air Narrative Exam Narrative: SEE TODAYS PROGRESS NOTE Objective Labs Result Diagrams: 04/03/18 04:34 04/03/18 04:34 Labs: Laboratory Results - last 24 hr 04/02/18 04/02/18 04/02/18 15:45 15:45 18:00 WBC RBC Hgb Hct MCV MCH MCHC RDW Plt Count Neut % (Auto) Lymph % (Auto) [place] % (Auto) Eos % (Auto) Baso % (Auto) Neut # (Auto) Sodium Potassium Chloride Carbon Dioxide BUN Creatinine Estimated GFR BUN/Creatinine Ratio Glucose Calcium Total Bilirubin Conjugated Bilirubin Unconjugated Bilirubin AST ALT Alkaline Phosphatase Total Protein Albumin Globulin Albumin/Globulin Ratio TSH 2.36 Free T3 2.76 L Random Cortisol < 0.16 Urine Color Urine Appearance Urine pH Ur Specific [place] Urine Protein Urine Glucose (UA) Urine Ketones Urine Occult Blood Urine Nitrate Urine Bilirubin Urine Urobilinogen Ur Leukocyte Esterase Urine RBC Urine WBC Ur Squamous Epith Cells Urine Bacteria Urine Mucus Ur Culture Indicated? Micro UA Comment Nasal Screen MRSA (PCR) Negative for mrsa 04/02/18 04/03/18 04/03/18 22:00 04:34 04:34 WBC 6.5 RBC 5.54 Hgb 16.6 Hct 47.0 MCV 84.7 MCH 29.9 MCHC 35.3 RDW 14.1 Plt Count 128 L Neut % (Auto) 83.3 H D Lymph % (Auto) 14.[address] [place] % (Auto) 2.3 L Eos % (Auto) 0.0 L Baso % (Auto) 0.3 Neut # (Auto) 5400 Sodium 141 Potassium 4.1 Chloride 102 Carbon Dioxide 28 BUN 15 Creatinine 1.10 Estimated GFR > 60.0 BUN/Creatinine Ratio 13.6 Glucose 167 H Calcium 8.1 L Total Bilirubin 1.4 H Conjugated Bilirubin 0.0 Unconjugated Bilirubin 1.1 AST 59 ALT 29 Alkaline Phosphatase 56 Total Protein 6.5 Albumin 3.7 Globulin 2.8 Albumin/Globulin Ratio 1.3 TSH Free T3 Random Cortisol Urine Color Yellow Urine Appearance Clear Urine pH 5.0 Ur Specific [place] 1.020 Urine Protein Trace H Urine Glucose (UA) Negative Urine Ketones 1+ H Urine Occult Blood 1+ H Urine Nitrate Negative Urine Bilirubin Negative Urine Urobilinogen 0.2 Ur Leukocyte Esterase Negative Urine RBC 1-5/hpf Urine WBC None seen Ur Squamous Epith Cells None seen Urine Bacteria None seen Urine Mucus 2+ H Ur Culture Indicated? Cult not indicated Micro UA Comment Not Reportable Nasal Screen MRSA (PCR) Discharge Plan Discharge Plan Patient Disposition: Home Provider Discharge Instructions Diet: Regular Activity: AD RAÚL Discharge Data Primary Care Provider: Anam Watson Attending Provider: John Paul Murdock Admit Date/Time: 04/02/18 17:38 Quality VTE Deep Vein Thrombosis/Pulmonary Embolism Present on Admission: Yes
--- NOTE | 2018-04-03 17:53 | PC.NURSE ---
Addendum entered by Phyllis Oliver R.N. 04/03/18 18:06: 1805 - Pt request to ambulate at time of discharge. Daughter present. CAN RECONDITIONER ambulated with pt out. Original Note: Pt reports feeling well enough, to go home. Reviewed home meds and discharge instructions. Pt verbalized understanding. IV d/c'd. Pt awaiting arrival of his daughter for a ride to home. Call light in reach.
[2018-04-06 14:38] LABS: Adrenocorticotropic Hormone 11 pg/mL (6-50)
[2018-04-07 23:01] LABS: Renin Activity 0.75 ng/mL/h (0.25-5.82)
--- NOTE | 2018-04-19 10:52 | ED_ITS ---
HPI - Fever General Chief Complaint: Fever Stated Complaint: EXHAUSTED TYROID PROBLEM Time Seen by Provider: 04/02/18 15:49 Source: patient and family Mode of arrival: ambulatory Limitations: no limitations History of Present Illness HPI Narrative: Patient is a 52-year-old male with a history of Tio's disease and hypothyroidism brought in by his daughter for concerns of altered mental status and fevers. Patient's daughter reports that patient was at his normal state health last evening when his daughter state that he drank ?bad milk ? patient's daughter states that afterwards he started throwing up. Then developed fever. He did take an extra dose of his [place] medication last night because he thought that he could potentially be in a adrenal crisis. She states that his symptoms continued today. She called him multiple times today while she was at work and noticed that he was becoming less and less alert. She brought him in the emergency department for evaluation. Patient was unable to provide any significant history. Related Data Home Medications Medication Instructions Recorded Confirmed levothyroxine 100 mcg PO DAILY #0 06/07/12 04/02/18 fludrocortisone 0.1 mg PO DAILY 04/02/18 04/02/18 hydrocortisone 30 mg PO DAILY 04/02/18 04/02/18 [facility] Medical History Addisons disease (Acute) Hypothyroid (Acute) Atrial fibrillation (Ruled-out) Dementia (Ruled-out) Surgical History No pertinent past surgical history (Acute) Exam Initial Vital Signs Initial Vital Signs: Vital Signs Temperature 104.1 F H 04/02/18 15:54 Pulse Rate 120 H 04/02/18 15:54 Respiratory Rate 19 04/02/18 15:54 Blood Pressure 129/89 H 04/02/18 15:54 Pulse Oximetry 99 04/02/18 15:54 Const General: well developed, well groomed and ill appearing Orientation: alert, awake, not oriented x3, oriented to person, not oriented to time and confused HENNH Head: normal to inspection and normocephalic Resp Effort & Inspection: normal respiratory effort Auscultation: clear to auscultation bilaterally Cardio Rate: tachycardic Rhythm: regular rhythm Pulses: radial pulses present GI Inspection: non-distended Palpation: soft and No tender Skin Lesions: no lesions Rashes: no rashes Neuro General: alert, awake and moves all extremities Extrem General: normal to inspection Psych Appearance: grossly normal and well kempt Scores GCS [place] coma scale eye opening: Spontaneous [place] coma scale verbal response: Orientated [place] coma scale motor response: Obey commands [place] coma scale total score: 15 Course Orders Ordered: ED Orders 04/02/18 15:45 Aldosterone Stat Blood Culture Stat Complete Blood Count AUTO DIFF Stat Comprehensive Metabolic Panel Stat Cortisol Random Stat Lactate (Lactic Acid) Stat Lipase Stat Partial Thromboplastin Time Stat Procalcitonin Stat Prothrombin Time INR Stat Thyroid Stimulating Hormone Stat Triiodothyronine T3 Free Stat 04/02/18 15:50 XR chest 1V Stat Urinalysis and Microscopic Stat 04/03/18 Comprehensive Metabolic Panel Routine 04/03/18 05:00 Basic Metabolic Panel Routine Fludrocortisone Acetate (Florinef) 0.1 mg PO DAILY [facility] Heparin Sodium (Porcine) (Heparin) 5,000 unit SUBCUT BID [facility] Hydrocortisone (Solu-Cortef) 100 mg IV Q6HR [facility] Sodium Chloride (Normal Saline 0.9%) 1,000 mls @ 200 mls/hr IV CONT MANUEL Last Admin: 04/02/18 16:45 Dose: 200 mls/hr Ciprofloxacin (Cipro) 400 mg in 200 mls @ 200 mls/hr IV Q12H [facility] Dextrose/Sodium Chloride (Dextrose 5%-0.9% Ns) 1,000 mls @ 150 mls/hr IV CONT [facility] Levothyroxine Sodium (Synthroid) 100 mcg PO DAILY [facility] Pantoprazole Sodium (Protonix) 40 mg IV DAILY [facility] Discontinued Medications Acetaminophen (Tylenol) 975 mg PO NOW ONE Stop: 04/02/18 15:51 Last Admin: 04/02/18 16:13 Dose: 975 mg Dexamethasone (Decadron) 4 mg IV NOW ONE Stop: 04/02/18 16:33 Last Admin: 04/02/18 16:44 Dose: 4 mg Hydrocortisone (Cortef) 30 mg PO DAILY [facility] Sodium Chloride (Normal Saline 0.9%) 1,000 mls @ 1,000 mls/hr IV BOLUS ONE Stop: 04/02/18 16:49 Last Admin: 04/02/18 16:13 Dose: 1,000 mls/hr Vital Signs - 8 hr 04/02/18 15:54 04/02/18 16:13 04/02/18 16:49 Temperature 104.1 F H Pulse Rate 120 H 122 H 101 H Respiratory Rate 19 22 22 Blood Pressure 129/89 H Blood Pressure [Right Arm] 147/90 H 132/98 H Pulse Oximetry 99 96 04/02/18 17:32 04/02/18 17:36 04/02/18 17:57 Temperature 98.1 F 98.1 F Pulse Rate 100 H Respiratory Rate 22 Blood Pressure Blood Pressure [Right Arm] 116/75 Pulse Oximetry 99 04/02/18 18:02 Temperature 98.1 F Pulse Rate Respiratory Rate Blood Pressure Blood Pressure [Right Arm] Pulse Oximetry MDM - Fever Medical Records Attestation: I reviewed the patient's medical records. Lab Data Attestation: I reviewed the patient's lab results. Result diagrams: 04/02/18 15:45 04/02/18 15:45 Lab Results 04/02/18 04/02/18 04/02/18 Range/Units 15:45 15:45 15:45 WBC 9.2 (4.5-11.0) X10^3/uL RBC 5.83 (4.5-5.9) X10^6/uL Hgb 17.4 (13.5-17.5) g/dL Hct 49.6 (41-53) % MCV 85.1 (80-100) fL MCH 29.9 (26-34) PG MCHC 35.1 (30-36) % RDW 14.4 (11.6-14.8) % Plt Count 173 (150-400) X10^3/uL Neut % (Auto) 58.4 (50-75) % Lymph % (Auto) 29.0 (25-40) % Orange % (Auto) 10.8 (3-14) % Eos % (Auto) 1.3 L (2-4) % Baso % (Auto) 0.5 (0-2) % Neut # (Auto) 5400 (9820-8131) /uL PT 15.1 H (10.1-12.7) SECONDS INR 1.4 H (0.9-1.3) APTT 41 H (26.4-36.2) SECONDS Sodium (137-145) mmol/L Potassium (3.4-5.1) mmol/L Chloride (98-107) mmol/L Carbon Dioxide (22-32) mmol/L BUN (9-20) mg/dL Creatinine (0.66-1.25) mg/dL Estimated GFR (>60) mL/min BUN/Creatinine Ratio (6-22) Glucose (70-100) mg/dL Lactate (0.7-2.1) mmol/L Calcium (8.4-10.2) mg/dL Total Bilirubin (0.2-1.3) mg/dL AST (17-59) IU/L ALT (21-72) IU/L Alkaline Phosphatase (38-126) U/L Total Protein (6.3-8.2) g/dL Albumin (3.5-5.0) g/dL Globulin (1.7-4.1) g/dL Albumin/Globulin Ratio (1.0-2.8) Lipase (23-300) U/L Procalcitonin 1.54 H (<0.5) ng/mL TSH (0.47-4.68) uIU/mL Free T3 (2.77-5.27) pg/mL Random Cortisol ug/dL 04/02/18 04/02/18 04/02/18 Range/Units 15:45 15:45 15:45 WBC (4.5-11.0) X10^3/uL RBC (4.5-5.9) X10^6/uL Hgb (13.5-17.5) g/dL Hct (41-53) % MCV (80-100) fL MCH (26-34) PG MCHC (30-36) % RDW (11.6-14.8) % Plt Count (150-400) X10^3/uL Neut % (Auto) (50-75) % Lymph % (Auto) (25-40) % Orange % (Auto) (3-14) % Eos % (Auto) (2-4) % Baso % (Auto) (0-2) % Neut # (Auto) (5514-6162) /uL PT (10.1-12.7) SECONDS INR (0.9-1.3) APTT (26.4-36.2) SECONDS Sodium 140 (137-145) mmol/L Potassium 3.7 (3.4-5.1) mmol/L Chloride 97 L (98-107) mmol/L Carbon Dioxide 26 (22-32) mmol/L BUN 17 (9-20) mg/dL Creatinine 1.70 H (0.66-1.25) mg/dL Estimated GFR 42.7 L (>60) mL/min BUN/Creatinine Ratio 10.0 (6-22) Glucose 87 (70-100) mg/dL Lactate 1.2 (0.7-2.1) mmol/L Calcium 9.0 (8.4-10.2) mg/dL Total Bilirubin 1.9 H (0.2-1.3) mg/dL AST 50 (17-59) IU/L ALT 26 (21-72) IU/L Alkaline Phosphatase 78 (38-126) U/L Total Protein 8.3 H (6.3-8.2) g/dL Albumin 4.8 (3.5-5.0) g/dL Globulin 3.5 (1.7-4.1) g/dL Albumin/Globulin Ratio 1.4 (1.0-2.8) Lipase 123 (23-300) U/L Procalcitonin (<0.5) ng/mL TSH 2.36 (0.47-4.68) uIU/mL Free T3 2.76 L (2.77-5.27) pg/mL Random Cortisol ug/dL 04/02/18 Range/Units 15:45 WBC (4.5-11.0) X10^3/uL RBC (4.5-5.9) X10^6/uL Hgb (13.5-17.5) g/dL Hct (41-53) % MCV (80-100) fL MCH (26-34) PG MCHC (30-36) % RDW (11.6-14.8) % Plt Count (150-400) X10^3/uL Neut % (Auto) (50-75) % Lymph % (Auto) (25-40) % Orange % (Auto) (3-14) % Eos % (Auto) (2-4) % Baso % (Auto) (0-2) % Neut # (Auto) (4019-8712) /uL PT (10.1-12.7) SECONDS INR (0.9-1.3) APTT (26.4-36.2) SECONDS Sodium (137-145) mmol/L Potassium (3.4-5.1) mmol/L Chloride (98-107) mmol/L Carbon Dioxide (22-32) mmol/L BUN (9-20) mg/dL Creatinine (0.66-1.25) mg/dL Estimated GFR (>60) mL/min BUN/Creatinine Ratio (6-22) Glucose (70-100) mg/dL Lactate (0.7-2.1) mmol/L Calcium (8.4-10.2) mg/dL Total Bilirubin (0.2-1.3) mg/dL AST (17-59) IU/L ALT (21-72) IU/L Alkaline Phosphatase (38-126) U/L Total Protein (6.3-8.2) g/dL Albumin (3.5-5.0) g/dL Globulin (1.7-4.1) g/dL Albumin/Globulin Ratio (1.0-2.8) Lipase (23-300) U/L Procalcitonin (<0.5) ng/mL TSH (0.47-4.68) uIU/mL Free T3 (2.77-5.27) pg/mL Random Cortisol < 0.16 ug/dL Imaging Data Chest x-ray: Radiologist's impression: [place] [address] XRay Report Signed Patient: Jacob Mcdonough [facility]#: [id number] : 1965Acct:[id number] Age/Sex: 52 / MDate of Service: 04/02/18 Loc: ED Accession Number: [id number] Procedure: XR chest 1V Ordering Provider: Anshu Shin D.O. PROCEDURE: XR CHEST 1V INDICATIONS: Fever of unknown origin TECHNIQUE: One view of the chest was acquired. COMPARISON: [facility] , CHEST 1 VIEW, 06/24/2014, 1:37. FINDINGS: Surgical changes and devices: None. Lungs and pleura: No pleural effusions or pneumothorax. Lungs are clear. Mediastinum: Mediastinal contours appear normal. Heart size is normal. Bones and chest wall: No suspicious bony lesions. Overlying soft tissues appear unremarkable. IMPRESSION: Reduced inspiratory volume, no pneumonia found. A followup PA and lateral chest plain film may be warranted to provide improved visualization of the lower third of the lung parenchyma, largely obscured by reduced inspiration. Dictated by: Sandor Love M.D. on 04/02/2018 at 16:48 Approved by: Sandor Love M.D. on 04/02/2018 at 16:49 [facility] Narrative Medical decision making narrative: 52-year-old male with what sounds like a gastroenteritis that occurred last evening. His daughter reports that he did not take his steroids this morning because he was feeling so poorly. Patient was somewhat unable/unwilling to provide answers to questions upon arrival. Was tachycardic which improved with fluids. Does not have an elevated white blood cell count. Chest x-ray was negative. Initially he reported headache but no neck pain then upon re-evaluation who reported no headache. I have low concern for meningitis. Urinalysis still pending. No skin changes concerning for cellulitis. I feel that his fever and tachycardia related to the gastritis from last evening. Will hold on antibiotics for now. He was given dexamethasone here in the emergency department. Discussed the case with Dr. Warren with Internal Medicine who accepts the patient for admission and continued evaluation and treatment. He agreed with no antibiotics for now. Blood cultures ordered. Discharge Plan Departure Patient Disposition: Admitted As Inpatient Clinical Impression: Fever of unknown origin, Gastroenteritis, [place]'s disease, Hypothyroidism Discharge Date/Time: 04/02/18 18:03 Interventions: ED Discharge Assessment Last Done: 04/02/18 18:02 Admit Date/Time: 04/02/18 17:38 Admit Provider: John Paul Murdock
== END 2018-04-03 18:05 | disposition home or self-care (01) | DRG 645 ==
LOC: ED 17:24 → ICU 04-03 10:09 → AC 07-25 11:16
PROVIDERS: Admitting Provider Internal Medicine; Emergency Provider Emergency Medicine; PCP Family Medicine; Visit Provider Internal Medicine
DX: E27.2 Addisonian crisis (principal); E27.1 Primary adrenocortical insufficiency; E03.9 Hypothyroidism, unspecified; A05.9 Bacterial foodborne intoxication, unspecified
CPT/HCPCS: 36415; 36591; 71045; 80053; 80076; 81001; 82024; 82088; 82533; 83605; 83690; 84145; 84244; 84443; 84481; 85025; 85610; 85730; 87040; 87797; 96361; 96365; 96374; 96375; 99283; 99284; G0378; C9113; J0744; J1100; J1644; J1720

== ENCOUNTER 2021-08-12 11:36 | Observation (INO) | payer OTHER, SELFPAY ==
[2018-04-02 17:39] VITALS: BMI 30.4
[2021-08-12] VITALS (49 sets, daily range): BP systolic 81–121; BP diastolic 50–82; PULSE 79–128; RESP 14–36; TEMP 36.6–38.6; O2SAT 77–100; BMI 25.5
--- NOTE | 2021-08-12 12:10 | DI.RAD.S_ITS ---
PROCEDURE: XR CHEST 1V INDICATIONS: suspected sepsis TECHNIQUE: One view of the chest was acquired. COMPARISON: [facility], CR, XR CHEST 1V, 04/02/2018, 16:07. FINDINGS: Surgical changes and devices: None. Lungs and pleura: Lungs are clear. No pleural effusions or pneumothorax. Mediastinum: Mediastinal contours appear normal. Heart size is normal. Bones and chest wall: No suspicious bony lesions. Overlying soft tissues appear unremarkable. IMPRESSION: No evidence acute pulmonary process. Dictated by: Hero Santana M.D. on 08/12/2021 at 12:39 Approved by: Hero Santana M.D. on 08/12/2021 at 12:39
[2021-08-12 12:16] LABS: Add Manual Diff / Slide Review NO; Basophils Absolute Auto 0 /uL (0-100); Basophils Percent Auto 0.5 % (0-2); Eosinophils Absolute Auto 100 /uL (0-450); Eosinophils Percent Auto 0.6 % (2-4); Hematocrit 47.2 % (41-53); Hemoglobin 16.7 g/dL (13.5-17.5); Lymphocytes Absolute Auto 3900 /uL (1100-4500); Lymphocytes Percent Auto 41.6 % (25-40); Mean Corpuscular HGB Conc 35.3 % (30-36); Mean Corpuscular Hemoglobin 29.8 PG (26-34); Mean Corpuscular Volume 84.3 fL (80-100); Monocytes Absolute Auto 1300 /uL (0-900); Monocytes Percent Auto 13.8 % (3-14); Neutrophils Absolute Auto 4000 /uL (1500-7000); Neutrophils Percent Auto 43.5 % (50-75); Platelet Count 176 X10^3/uL (150-400); Red Cell Distribution Width 13.9 % (11.6-14.8); White Blood Cell Count 9.3 X10^3/uL (4.5-11.0)
[2021-08-12 12:32] LABS: Alanine Aminotransferase 21 IU/L (<50); Albumin 4.5 g/dL (3.5-5.0); Albumin Globulin Ratio 1.3 (1.0-2.8); Alkaline Phosphatase 71 U/L (38-126); Aspartate Aminotransferase 65 IU/L (17-59); BUN Creatinine Ratio 12.3 (6-22); Bilirubin Total 1.2 mg/dL (0.2-1.3); Blood Urea Nitrogen 18 mg/dL (9-20); Carbon Dioxide 21 mmol/L (22-32); Chloride 97 mmol/L (98-107); Estimated Glomerular Filt Rate 50.1 mL/min (>60); Globulin 3.6 g/dL (1.7-4.1); Glucose 79 mg/dL (70-100); HEMOLYSIS < 15 (0-50); Lipase 178 U/L (23-300); Potassium 4.5 mmol/L (3.4-5.1); Sodium 129 mmol/L (137-145); Total Protein 8.1 g/dL (6.3-8.2)
[2021-08-12 12:33] LABS: Lactate (Lactic Acid) 2.1 mmol/L (0.7-2.1)
[2021-08-12 12:49] LABS: Procalcitonin 0.79 ng/mL (<0.5)
--- NOTE | 2021-08-12 12:58 | ED.GENADULT ---
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 On arrival he is disoriented, tachycardic, blood pressure of 112/78, he does have a fever, mildly hypoxic and appears acutely ill. He has been COVID vaccinated. Related Data Home Medications Medication Instructions Recorded Confirmed levothyroxine 100 mcg tablet 100 mcg PO DAILY #0 06/07/12 04/02/18 fludrocortisone 0.1 mg tablet 0.1 mg PO DAILY 04/02/18 04/02/18 hydrocortisone 20 mg tablet 30 mg PO DAILY 04/02/18 04/02/18 Allergies Allergy/AdvReac Type Severity Reaction Status Date / Time No Known Drug Allergies Allergy Verified 04/02/18 20:18 Review of Systems Review of Systems ROS Unobtainable: Unobtainable due to medical condition Patient History Medical History (Updated 08/12/21 @ 17:16 by Yancy Michele MD) Addisons disease Hypothyroid Surgical History No pertinent past surgical history Social History household members: children Smoking Status: Unknown if ever smoked Smoking Status: Unknown if ever smoked alcohol intake frequency: 0-2 drinks per day Substance Use Type: does not use Exam Narrative Exam Narrative: General: Healthy appearing, significantly altered and unable to answer questions HEENT: dry mucous membranes, normal sclera with reactive pupils, Neck: No JVD, supple Respiratory: Lungs are clear to auscultation, no wheezing no rales no rhonchi. Full and symmetrical air movement Cardiac: Regular rate and rhythm no murmurs no bruits Abdomen: Soft, nontender, good bowel tones, no flank pain Skin: Warm and dry, no rashes Neurologic: Moving all extremities, Extremities: No trauma, well perfused Psych: Oriented to place, otherwise confused Initial Vital Signs Initial Vital Signs: Vital Signs Temperature 101.5 F H 08/12/21 11:50 Pulse Rate 128 H 08/12/21 11:50 Respiratory Rate 36 H 08/12/21 11:50 Blood Pressure 112/78 08/12/21 11:50 Pulse Oximetry 88 L 08/12/21 11:50 Course Orders Ordered: ED Orders 08/12/21 12:08 Complete Blood Count AUTO DIFF Stat Comprehensive Metabolic Panel Stat Lactate (Lactic Acid) Stat Lipase Stat Procalcitonin Stat 08/12/21 12:10 XR chest 1V Stat EKG-12 Lead Stat RT Consult Eval and Treat NOW 08/12/21 12:22 Blood Culture Stat 08/12/21 13:11 Respiratory Panel (Film Array) Stat 08/12/21 13:24 CT head/brain wo con Stat 08/12/21 13:45 Ictotest Urine Stat Urinalysis and Microscopic Stat Urine Culture Stat 08/12/21 14:24 Aldosterone Stat Cortisol Random Stat 08/12/21 14:51 Arterial Blood Gas Stat 08/12/21 15:00 CT angio chest PE protocol Stat Sodium Chloride (Normal Saline 0.9%) 1,000 mls @ 1,000 mls/hr IV BOLUS ONE Stop: 08/12/21 18:12 Discontinued Medications Dexamethasone (Dexamethasone 10 Mg/Ml Vial) 6 mg IV NOW ONE Stop: 08/12/21 17:14 Hydrocortisone (Hydrocortisone 100 Mg/2 Ml Vial) 100 mg IV NOW ONE Stop: 08/12/21 13:00 Last Admin: 08/12/21 13:21 Dose: 100 mg Documented by: HELEN Sodium Chloride (Normal Saline 0.9%) 1,000 mls @ 1,000 mls/hr IV BOLUS ONE Stop: 08/12/21 13:08 Last Infusion: 08/12/21 15:27 Dose: 0 mls/hr Documented by: Admin: 08/12/21 13:20 Dose: 1,000 mls/hr Documented by: HELEN Sodium Chloride (Normal Saline 0.9%) 1,000 mls @ 1,000 mls/hr IV BOLUS ONE Stop: 08/12/21 13:58 Last Infusion: 08/12/21 15:42 Dose: 0 mls/hr Documented by: Admin: 08/12/21 13:50 Dose: 1,000 mls/hr Documented by: HELEN Ceftriaxone Sodium 2,000 mg/ (Sodium Chloride) 100 mls @ 200 mls/hr IV NOW ONE Stop: 08/12/21 13:00 Last Infusion: 08/12/21 14:03 Dose: 0 mls/hr Documented by: Admin: 08/12/21 13:21 Dose: 200 mls/hr Documented by: HELEN Sodium Chloride (Normal Saline 0.9%) 1,000 mls @ 1,000 mls/hr IV BOLUS ONE Stop: 08/12/21 14:13 Last Infusion: 08/12/21 16:44 Dose: 0 mls/hr Documented by: Admin: 08/12/21 15:39 Dose: 1,000 mls/hr Documented by: DARI Ketorolac Tromethamine (Ketorolac 30 Mg/Ml Vial) 15 mg IV NOW ONE Stop: 08/12/21 15:08 Last Admin: 08/12/21 15:16 Dose: 15 mg Documented by: DRAI Ondansetron HCl (Ondansetron 4 Mg/2 Ml Inj) 4 mg IV NOW ONE Stop: 08/12/21 15:07 Last Admin: 08/12/21 15:16 Dose: 4 mg Documented by: DARI Vital Signs Vital signs: Vital Signs - 8 hr 08/12/21 11:50 08/12/21 12:10 08/12/21 12:30 Temperature 101.5 F H Pulse Rate 128 H 121 H 121 H Respiratory Rate 36 H 18 Blood Pressure 112/78 Pulse Oximetry 88 L 77 L 89 L 08/12/21 12:32 08/12/21 13:00 08/12/21 13:30 Temperature Pulse Rate 120 H 125 H 120 H Respiratory Rate 17 16 Blood Pressure 121/82 Pulse Oximetry 94 96 95 08/12/21 13:49 08/12/21 14:00 08/12/21 14:15 Temperature Pulse Rate 121 H 118 H 113 H Respiratory Rate 18 15 18 Blood Pressure 117/69 106/66 Pulse Oximetry 98 98 08/12/21 14:30 08/12/21 14:45 08/12/21 15:05 Temperature Pulse Rate 114 H 109 H 111 H Respiratory Rate 17 16 21 Blood Pressure 104/53 L 114/65 Pulse Oximetry 98 100 83 L 08/12/21 15:15 08/12/21 15:30 08/12/21 15:45 Temperature Pulse Rate 110 H 107 H 107 H Respiratory Rate 23 21 19 Blood Pressure 98/57 L Pulse Oximetry 99 96 97 08/12/21 16:13 08/12/21 16:40 Temperature 98.7 F 98.7 F Pulse Rate Respiratory Rate Blood Pressure Pulse Oximetry Medical Decision Making Lab Data Result diagrams: 08/12/21 12:08 08/12/21 12:08 Labs: Lab Results 08/12/21 08/12/21 08/12/21 Range/Units 12:08 12:08 12:08 WBC 9.3 (4.5-11.0) X10^3/uL RBC 5.60 (4.5-5.9) X10^6/uL Hgb 16.7 (13.5-17.5) g/dL Hct 47.2 (41-53) % MCV 84.3 (80-100) fL MCH 29.8 (26-34) PG MCHC 35.3 (30-36) % RDW 13.9 (11.6-14.8) % Plt Count 176 (150-400) X10^3/uL Neut % (Auto) 43.5 L (50-75) % Lymph % (Auto) 41.6 H (25-40) % [place] % (Auto) 13.8 (3-14) % Eos % (Auto) 0.6 L (2-4) % Baso % (Auto) 0.5 (0-2) % Neut # (Auto) 4000 (3808-5057) /uL Lymph # (Auto) 3900 (5753-8954) /uL [place] # (Auto) 1300 H (0-900) /uL Eos # (Auto) 100 (0-450) /uL Baso # (Auto) 0 (0-100) /uL ABG pH (7.35-7.45) ABG pCO2 (35-45) mmHg ABG pO2 (80-100) mmHg ABG HCO3 (22-26) mmol/L ABG Total CO2 (21-31) mmol/L ABG O2 Saturation (95-100) % ABG Base Excess (-2-2) mmol/L FiO2 Sodium 129 L (137-145) mmol/L Potassium 4.5 (3.4-5.1) mmol/L Chloride 97 L (98-107) mmol/L Carbon Dioxide 21 L (22-32) mmol/L BUN 18 (9-20) mg/dL Creatinine 1.46 H (0.66-1.25) mg/dL Estimated GFR 50.1 L (>60) mL/min BUN/Creatinine Ratio 12.3 (6-22) Glucose 79 (70-100) mg/dL Lactate 2.1 (0.7-2.1) mmol/L Calcium 9.0 (8.4-10.2) mg/dL Total Bilirubin 1.2 (0.2-1.3) mg/dL AST 65 H (17-59) IU/L ALT 21 (<50) IU/L Alkaline Phosphatase 71 (38-126) U/L Total Protein 8.1 (6.3-8.2) g/dL Albumin 4.5 (3.5-5.0) g/dL Globulin 3.6 (1.7-4.1) g/dL Albumin/Globulin Ratio 1.3 (1.0-2.8) Lipase 178 (23-300) U/L Procalcitonin 0.79 H (<0.5) ng/mL Random Cortisol ug/dL Urine Color Urine Appearance Urine pH (4.5-8.0) Ur Specific Gordon (1.000-1.035) Urine Protein (Negative) Urine Glucose (UA) (Negative) g/dL Urine Ketones (NEGATIVE) Urine Occult Blood (Negative) Urine Nitrate (Negative) Urine Bilirubin (NEGATIVE) Ur Bilirubin Confirm (Negative) Urine Urobilinogen (0.2) E.U./dL Ur Leukocyte Esterase (NEGATIVE) Urine RBC (0-5/HPF) Urine WBC (0-5/HPF) Ur Squamous Epith Cells (0-5/HPF) Amorphous Sediment Urine Bacteria (None) Urine Mucus (Negative) Ur Culture Indicated? Chlamy pneumoniae PCR (Not Detect) Adenovirus (PCR) (Not Detect) B. pertussis DNA (PCR) (Not Detecte) B.parapertussis DNA PCR (Not Detecte) Coronavirus OC43 (PCR) (Not Detect) Coronavirus HKU1 (PCR) (Not Detect) Coronavirus 229E (PCR) (Not Detect) SARS-CoV-2 (PCR) (Not Detecte) Coronavirus NL63 (PCR) (Not Detect) Human Metapneumovir PCR (Not Detect) Influenza Type A (PCR) (Not Detect) Influenza Type B (PCR) (Not Detect) M. pneumoniae (PCR) (Not Detect) Parainfluenza 1 (PCR) (Not Detect) Parainfluenza 2 (PCR) (Not Detect) Parainfluenza 3 (PCR) (Not Detect) Parainfluenza 4 (PCR) (Not Detect) RSV (PCR) (Not Detect) Entero/Rhino (PCR) (Not Detect) 08/12/21 08/12/21 08/12/21 Range/Units 13:11 13:45 14:24 WBC (4.5-11.0) X10^3/uL RBC (4.5-5.9) X10^6/uL Hgb (13.5-17.5) g/dL Hct (41-53) % MCV (80-100) fL MCH (26-34) PG MCHC (30-36) % RDW (11.6-14.8) % Plt Count (150-400) X10^3/uL Neut % (Auto) (50-75) % Lymph % (Auto) (25-40) % [place] % (Auto) (3-14) % Eos % (Auto) (2-4) % Baso % (Auto) (0-2) % Neut # (Auto) (9403-4971) /uL Lymph # (Auto) (2759-3109) /uL [place] # (Auto) (0-900) /uL Eos # (Auto) (0-450) /uL Baso # (Auto) (0-100) /uL ABG pH (7.35-7.45) ABG pCO2 (35-45) mmHg ABG pO2 (80-100) mmHg ABG HCO3 (22-26) mmol/L ABG Total CO2 (21-31) mmol/L ABG O2 Saturation (95-100) % ABG Base Excess (-2-2) mmol/L FiO2 Sodium (137-145) mmol/L Potassium (3.4-5.1) mmol/L Chloride (98-107) mmol/L Carbon Dioxide (22-32) mmol/L BUN (9-20) mg/dL Creatinine (0.66-1.25) mg/dL Estimated GFR (>60) mL/min BUN/Creatinine Ratio (6-22) Glucose (70-100) mg/dL Lactate (0.7-2.1) mmol/L Calcium (8.4-10.2) mg/dL Total Bilirubin (0.2-1.3) mg/dL AST (17-59) IU/L ALT (<50) IU/L Alkaline Phosphatase (38-126) U/L Total Protein (6.3-8.2) g/dL Albumin (3.5-5.0) g/dL Globulin (1.7-4.1) g/dL Albumin/Globulin Ratio (1.0-2.8) Lipase (23-300) U/L Procalcitonin (<0.5) ng/mL Random Cortisol 132 ug/dL Urine Color Yellow Urine Appearance Slightly cloudy Urine pH 5.0 (4.5-8.0) Ur Specific Gordon >=1.030 H (1.000-1.035) Urine Protein Trace H (Negative) Urine Glucose (UA) Negative (Negative) g/dL Urine Ketones 2+ H (NEGATIVE) Urine Occult Blood 3+ H (Negative) Urine Nitrate Negative (Negative) Urine Bilirubin 1+ H (NEGATIVE) Ur Bilirubin Confirm Negative (Negative) Urine Urobilinogen 0.2 (0.2) E.U./dL Ur Leukocyte Esterase Negative (NEGATIVE) Urine RBC 1-5/hpf (0-5/HPF) Urine WBC 1-5/hpf (0-5/HPF) Ur Squamous Epith Cells 1-5 /hpf (0-5/HPF) Amorphous Sediment 1+ Urine Bacteria Few (2-10) H (None) Urine Mucus 1+ H (Negative) Ur Culture Indicated? Specimen cultured Chlamy pneumoniae PCR Not detected (Not Detect) Adenovirus (PCR) Not detected (Not Detect) B. pertussis DNA (PCR) Not detected (Not Detecte) B.parapertussis DNA PCR Not detected (Not Detecte) Coronavirus OC43 (PCR) Not detected (Not Detect) Coronavirus HKU1 (PCR) Not detected (Not Detect) Coronavirus 229E (PCR) Not detected (Not Detect) SARS-CoV-2 (PCR) Detected H (Not Detecte) Coronavirus NL63 (PCR) Not detected (Not Detect) Human Metapneumovir PCR Not detected (Not Detect) Influenza Type A (PCR) Not detected (Not Detect) Influenza Type B (PCR) Not detected (Not Detect) M. pneumoniae (PCR) Not detected (Not Detect) Parainfluenza 1 (PCR) Not detected (Not Detect) Parainfluenza 2 (PCR) Not detected (Not Detect) Parainfluenza 3 (PCR) Not detected (Not Detect) Parainfluenza 4 (PCR) Not detected (Not Detect) RSV (PCR) Not detected (Not Detect) Entero/Rhino (PCR) Not detected (Not Detect) 08/12/21 08/12/21 Range/Units 14:30 14:51 WBC (4.5-11.0) X10^3/uL RBC (4.5-5.9) X10^6/uL Hgb (13.5-17.5) g/dL Hct (41-53) % MCV (80-100) fL MCH (26-34) PG MCHC (30-36) % RDW (11.6-14.8) % Plt Count (150-400) X10^3/uL Neut % (Auto) (50-75) % Lymph % (Auto) (25-40) % [place] % (Auto) (3-14) % Eos % (Auto) (2-4) % Baso % (Auto) (0-2) % Neut # (Auto) (4334-1623) /uL Lymph # (Auto) (4023-8539) /uL [place] # (Auto) (0-900) /uL Eos # (Auto) (0-450) /uL Baso # (Auto) (0-100) /uL ABG pH 7.30 L (7.35-7.45) ABG pCO2 37.2 (35-45) mmHg ABG pO2 89 (80-100) mmHg ABG HCO3 18 L (22-26) mmol/L ABG Total CO2 19 L (21-31) mmol/L ABG O2 Saturation 96 (95-100) % ABG Base Excess -8.0 L (-2-2) mmol/L FiO2 28 Sodium (137-145) mmol/L Potassium (3.4-5.1) mmol/L Chloride (98-107) mmol/L Carbon Dioxide (22-32) mmol/L BUN (9-20) mg/dL Creatinine (0.66-1.25) mg/dL Estimated GFR (>60) mL/min BUN/Creatinine Ratio (6-22) Glucose (70-100) mg/dL Lactate 1.4 (0.7-2.1) mmol/L Calcium (8.4-10.2) mg/dL Total Bilirubin (0.2-1.3) mg/dL AST (17-59) IU/L ALT (<50) IU/L Alkaline Phosphatase (38-126) U/L Total Protein (6.3-8.2) g/dL Albumin (3.5-5.0) g/dL Globulin (1.7-4.1) g/dL Albumin/Globulin Ratio (1.0-2.8) Lipase (23-300) U/L Procalcitonin (<0.5) ng/mL Random Cortisol ug/dL Urine Color Urine Appearance Urine pH (4.5-8.0) Ur Specific Gordon (1.000-1.035) Urine Protein (Negative) Urine Glucose (UA) (Negative) g/dL Urine Ketones (NEGATIVE) Urine Occult Blood (Negative) Urine Nitrate (Negative) Urine Bilirubin (NEGATIVE) Ur Bilirubin Confirm (Negative) Urine Urobilinogen (0.2) E.U./dL Ur Leukocyte Esterase (NEGATIVE) Urine RBC (0-5/HPF) Urine WBC (0-5/HPF) Ur Squamous Epith Cells (0-5/HPF) Amorphous Sediment Urine Bacteria (None) Urine Mucus (Negative) Ur Culture Indicated? Chlamy pneumoniae PCR (Not Detect) Adenovirus (PCR) (Not Detect) B. pertussis DNA (PCR) (Not Detecte) B.parapertussis DNA PCR (Not Detecte) Coronavirus OC43 (PCR) (Not Detect) Coronavirus HKU1 (PCR) (Not Detect) Coronavirus 229E (PCR) (Not Detect) SARS-CoV-2 (PCR) (Not Detecte) Coronavirus NL63 (PCR) (Not Detect) Human Metapneumovir PCR (Not Detect) Influenza Type A (PCR) (Not Detect) Influenza Type B (PCR) (Not Detect) M. pneumoniae (PCR) (Not Detect) Parainfluenza 1 (PCR) (Not Detect) Parainfluenza 2 (PCR) (Not Detect) Parainfluenza 3 (PCR) (Not Detect) Parainfluenza 4 (PCR) (Not Detect) RSV (PCR) (Not Detect) Entero/Rhino (PCR) (Not Detect) Imaging Data Chest x-ray: Radiologist's Impression: FINDINGS:? ? Surgical changes and devices:? None.? ? Lungs and pleura:? Lungs are clear.? No pleural effusions or pneumothorax.? ? Mediastinum:? Mediastinal contours appear normal.? Heart size is normal.? ? Bones and chest wall:? No suspicious bony lesions.? Overlying soft tissues appear unremarkable.? ? IMPRESSION:? No evidence acute pulmonary process. ? ? ? Dictated by: Hero Santana M.D. on 08/12/2021 at 12:39 ? ? 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 Initially was concerned that he was going to be septic from a bacterial source and ceftriaxone was ordered. Lactic acid is reassuring at 1.4. COVID test was somewhat surprising but fits with the overall picture. With his Hertford's disease he was given 100 mg of hydrocortisone for stress dosing. His chest x-ray is relatively unremarkable however with his COVID diagnosis is CT a of the chest was done to confirm absence of PE given his significant tachycardia. Chest CTA is reassuring. In addition to the hydrocortisone stress dose he will be given 6 mg of IV dexamethasone to treat his COVID. He is currently on RA with sats at 98%. On arrival he was 88%. He seems to have responded nicely to the initial dose of hydrocortisone in the L of fluid. I believe he is still clinically relatively dehydrated to implanting to given a 2 L of normal saline. His creatinine was elevated, he remains slightly tachycardic and he is not yet voided. At this point he is still slightly confused with some of the events of today in the afternoon but is much more appropriate and can carry on a conversation. He is safe for transfer to the floor 518pm discussed with the hospitalist, admit accepted Discharge Plan Departure Patient Disposition: Admitted As Inpatient Clinical Impression: COVID-19, Addisonian crisis, Acute kidney injury
[2021-08-12] MEDS: SODIUM CHLORIDE 0.9% 1,000 ML 1000 ML IV ×4 (13:20→17:25)
[2021-08-12] MEDS: cefTRIAXone 2,000 MG in SODIUM CHLORIDE 0.9% 100 ML 200 ML IV (13:21)
[2021-08-12] MEDS: HYDROCORTISONE 100 MG/2 ML VIAL IV (13:21)
--- NOTE | 2021-08-12 13:24 | DI.CT.S_ITS ---
PROCEDURE: CT HEAD/BRAIN WO CON INDICATIONS: acutely altered mental status TECHNIQUE: Noncontrast 4.5 mm thick angled axial sections acquired from the foramen magnum to the vertex, with coronal and sagittal reformats. For radiation dose reduction, the following was used: automated exposure control, adjustment of mA and/or kV according to patient size. COMPARISON: [facility], CT, HEAD WITHOUT CONTRAST, 06/24/2014, 2:05. FINDINGS: Image quality: Excellent. CSF spaces: Basal cisterns are patent. No extra-axial fluid collections. Ventricles are normal in size and shape. Stable appearance of possible calcified right frontal meningioma. Brain: No midline shift. No intracranial masses or hemorrhage. Martinez-white matter interface is normal. Skull and face: Calvarium and visualized facial bones are intact, without suspicious lesions. Sinuses: Right maxillary sinus mucosal thickening with more focal soft tissue prominence consistent with sinus disease and likely small right maxillary sinus mucocele. IMPRESSION: CT head without acute intracranial abnormalities. No mass or mass effect visualized. No calvarial fractures. Right maxillary sinus disease with likely small right maxillary sinus mucocele. Dictated by: Can Pearson M.D. on 08/12/2021 at 13:49 Approved by: Can Pearson M.D. on 08/12/2021 at 13:53
[2021-08-12 14:06] LABS: Adenovirus Not Detected (Not Detect); B. parapertussis Not Detected (Not Detecte); Bordetella pertussis Not Detected (Not Detecte); Chlamydophila pneumoniae Not Detected (Not Detect); Coronavirus 229E Not Detected (Not Detect); Coronavirus HKU1 Not Detected (Not Detect); Coronavirus NL 63 Not Detected (Not Detect); Coronavirus OC43 Not Detected (Not Detect); Human Metapneumovirus Not Detected (Not Detect); Human Rhinovirus/Enterovirus Not Detected (Not Detect); Influenza A Not Detected (Not Detect); Influenza B Not Detected (Not Detect); Mycoplasma pneumoniae Not Detected (Not Detect); Parainfluenza Virus 1 Not Detected (Not Detect); Parainfluenza Virus 2 Not Detected (Not Detect); Parainfluenza Virus 3 Not Detected (Not Detect); Parainfluenza Virus 4 Not Detected (Not Detect); Respiratory Syncytial Virus Not Detected (Not Detect)
[2021-08-12 14:08] LABS: SARS- CoV-2 Detected (Not Detecte)
[2021-08-12 14:12] LABS: Reflexed Lactate in 2 Hours Y
[2021-08-12 14:18] LABS: Bilirubin Urine UA 1+ (NEGATIVE); Color Urine UA YELLOW; Glucose Urine UA NEGATIVE (Negative); Ketones Urine UA 2+ (NEGATIVE); Leukocyte Esterase Urine UA NEGATIVE (NEGATIVE); Nitrite Urine UA NEGATIVE (Negative); Occult Blood Urine UA 3+ (Negative); Protein Urine UA TRACE (Negative); Specific Gravity Urine UA >=1.030 (1.000-1.035); Urobilinogen Urine UA 0.2 E.U./dL (0.2)
[2021-08-12 14:47] LABS: Appearance Urine UA Slightly Cloudy
[2021-08-12 14:52] LABS: Amorphous Sediment Urine 1+; Bacteria Urine Few (2-10); Mucus Urine 1+ (Negative); RBC Urine 1-5/HPF (0-5/HPF); Squamous Epithelial Cell Urine 1-5 /HPF (0-5/HPF); WBC Urine 1-5/HPF (0-5/HPF)
[2021-08-12 14:53] LABS: Culture Indicated Urine Specimen Cultured
[2021-08-12 14:54] LABS: Ictotest Urine Negative (Negative)
--- NOTE | 2021-08-12 15:00 | DI.CT.S_ITS ---
PROCEDURE: CT ANGIO CHEST PE PROTOCOL INDICATIONS: alt mental status, hypoxia, tachycardia, covid + TECHNIQUE: After the administration of intravenous contrast, 2 mm thick sections acquired from the pulmonary apices to the posterior costophrenic angles. 3-dimensional maximum intensity projection (MIP) coronal and sagittal reformats were then acquired through the thorax. For radiation dose reduction, the following was used: automated exposure control, adjustment of mA and/or kV according to patient size. COMPARISON: None. FINDINGS: Image quality: Excellent. Pulmonary arteries: Pulmonary arteries are normal in size, and demonstrate no intraluminal filling defects to suggest central pulmonary embolism. Lungs and pleura: Lungs are clear. No pleural effusions or pneumothorax. Central and peripheral airways are patent. Mediastinum: Heart size is normal, without pericardial effusion. No mediastinal or hilar adenopathy. Thoracic aorta is normal in caliber and enhancement. Esophagus is normal in caliber, without hiatal hernia. Bones and chest wall: No suspicious bony lesions. No acute vertebral body compression fracture or spondylolisthesis. Mild degenerative endplate changes are noted throughout thoracic spine. Thyroid gland is within normal limits No axillary or supraclavicular adenopathy. Abdomen: Visualized upper abdominal solid organs appear normal in the early arterial phase of enhancement. IMPRESSION: 1. No evidence of pulmonary emboli. No thoracic aortic aneurysm or dissection. 2. Bilateral lungs are clear. 3. No mediastinal or hilar lymphadenopathy by size criteria. Dictated by: Gilbert Perez M.D. on 08/12/2021 at 15:40 Approved by: Gilbert Perez M.D. on 08/12/2021 at 15:42
[2021-08-12 15:04] LABS: HCO3 ABG 18 mmol/L (22-26); PCO2 ABG 37.2 mmHg (35-45); PO2 ABG 89 mmHg (80-100); TCO2 ABG 19 mmol/L (21-31)
[2021-08-12 15:05] LABS: Fractionated Inspired Oxygen 28; Oxygen Saturation ABG 96 % (95-100)
[2021-08-12] MEDS: KETOROLAC 30 MG/ML VIAL 15 MG IV (15:16)
[2021-08-12] MEDS: ONDANSETRON 4 MG/2 ML INJ IV (15:16)
[2021-08-12 15:39] LABS: Lactate 2HR (Lactic Acid Rflx) 1.4 mmol/L (0.7-2.1)
--- NOTE | 2021-08-12 15:53 | PC.NURSE ---
Son, Miguel, requests wallet for safe keeping. Patient agrees to allow son to take wallet home. This student RN confirmed Miguel's ID. Also, notified his PCP is Dr. Person in [place].
[2021-08-12 16:43] LABS: Cortisol Random 132 ug/dL
[2021-08-12] MEDS: DEXAMETHASONE 10 MG/ML VIAL 6 MG IV (17:24)
--- NOTE | 2021-08-12 18:14 | PM.HP.1 ---
History of Present Illness History of Present Illness Date Patient Seen: 08/12/21 Chief complaint: altered LOC, poss hypothermia, brought by [facility] Narrative: THIS IS A 56-YEAR-OLD MALE WITH A PAST MEDICAL HISTORY SIGNIFICANT FOR HYPOTHYROIDISM AND OMAIRA DISEASE. PATIENT WAS BROUGHT TO THE HOSPITAL AND CONFUSED REPORTEDLY PER ER REPORT. BY THE TIME PATIENT WAS SEEN IN THE ICU, HE WAS ALERT, AWAKE, ORIENTED X3. HE DENIES ANY FALLS. NO TRAUMA. NO RECENT ILLNESS. NO RECENT TRAVELS. HE IS NOT SURE WHAT HAPPENED. HE DOES HAVE FAMILY AT HOME LIVING HIM. HE ALSO REPORTED THAT HE HAS NOT VACCINATED AGAINST COVID 19 IN THE ER, HIS LABS ARE SIGNIFICANT FOR MILD ACIDOSIS NOTED ON ABG. HYPONATREMIA AND ACUTE KIDNEY INJURY WITH A CREATININE OF 1.[address] SCAN OF THE CHEST WITH CONTRAST RULED OUT PULMONARY EMBOLISM. NO SIGNIFICANT INFILTRATIVE DISEASE NOTED ON THE X-RAY. CT SCAN OF THE HEAD WAS ALSO NEGATIVE. Patient History Medical History (Updated 08/12/21 @ 17:16 by Yancy Michele MD) Addisons disease Hypothyroid Surgical History No pertinent past surgical history Family & Social History Social History: household members children Safety & Behavioral: Feels Safe in Current Yes Environment Been Physically Hurt or No Threatened By a Person Tobacco & Substance use: Smoking Status Unknown if ever smoked alcohol intake frequency 0-2 drinks per day Substance Use Type does not use Meds Home Medications and Allergies Home Medications Medication Instructions Recorded Confirmed Type levothyroxine 100 mcg tablet 100 mcg PO DAILY #0 06/07/12 04/02/18 History fludrocortisone 0.1 mg tablet 0.1 mg PO DAILY 04/02/18 04/02/18 History hydrocortisone 20 mg tablet 30 mg PO DAILY 04/02/18 04/02/18 History Allergies Allergy/AdvReac Type Severity Reaction Status Date / Time No Known Drug Allergies Allergy Verified 04/02/18 20:18 Review of Systems Review of Systems Narrative: ALL SYSTEM REVIEWED. NEGATIVE UNLESS NOTED ABOVE IN HPI Exam Vital Signs (past 8 hours): - 08/12/21 11:50 08/12/21 12:10 08/12/21 12:30 Temperature 101.5 F H Pulse Rate 128 H 121 H 121 H Respiratory Rate 36 H 18 Blood Pressure 112/78 Pulse Oximetry 88 L 77 L 89 L 08/12/21 12:32 08/12/21 13:00 08/12/21 13:30 Temperature Pulse Rate 120 H 125 H 120 H Respiratory Rate 17 16 Blood Pressure 121/82 Pulse Oximetry 94 96 95 08/12/21 13:49 08/12/21 14:00 08/12/21 14:15 Temperature Pulse Rate 121 H 118 H 113 H Respiratory Rate 18 15 18 Blood Pressure 117/69 106/66 Pulse Oximetry 98 98 08/12/21 14:30 08/12/21 14:45 08/12/21 15:05 Temperature Pulse Rate 114 H 109 H 111 H Respiratory Rate 17 16 21 Blood Pressure 104/53 L 114/65 Pulse Oximetry 98 100 83 L 08/12/21 15:15 08/12/21 15:30 08/12/21 15:45 Temperature Pulse Rate 110 H 107 H 107 H Respiratory Rate 23 21 19 Blood Pressure 98/57 L Pulse Oximetry 99 96 97 08/12/21 16:00 08/12/21 16:13 08/12/21 16:15 Temperature 98.7 F Pulse Rate 105 H 106 H 103 H Respiratory Rate 21 22 20 Blood Pressure 90/50 L 90/55 L Pulse Oximetry 95 94 90 L 08/12/21 16:30 08/12/21 16:40 08/12/21 16:45 Temperature 98.7 F Pulse Rate 101 H 101 H Respiratory Rate 19 19 Blood Pressure 92/50 L Pulse Oximetry 93 94 08/12/21 17:00 08/12/21 17:15 08/12/21 17:30 Temperature Pulse Rate 102 H 100 H 101 H Respiratory Rate 20 17 20 Blood Pressure 87/51 L 92/57 L Pulse Oximetry 95 96 95 Oxygen Delivery Method Nasal Cannula Oxygen Flow Rate 2 Narrative Exam Narrative: NO ACUTE DISTRESS. APPEARS OLDER THAN STATED AGE. POOR DENTITION. WELL NOURISHED NOSE. NO RUNNY NOSE NOTED. NO TRAUMA HEAD ATRAUMATIC NORMOCEPHALIC NECK : SUPPLE WITHOUT ADENOPATHY NO CAROTID BRUITS EYE: EOMI, PERRLA, NORMAL CONJUNCTIVA; NO JAUNDICE CHEST: REGULAR RATE. NO RUBS. PMI IS NON DISPLACED. NO MURMURS; NORMAL S1-S2 PULMONARY: DECREASED BS OVER THE BASES. MILD BIBASILAR CRACKLES NOTED; NO INCREASED DULLNESS TO PERCUSSION ABDOMEN: SOFT. NONTENDER. NONDISTENDED. BOWEL SOUNDS ARE PRESENT IN ALL 4 QUADRANTS. NO MASS. EXTREMITIES: NO EDEMA.. NO CYANOSIS CLUBBING NOTED. NEURO: CRANIAL NERVES 2-12 GROSSLY INTACT. NO FOCAL NEUROLOGICAL DEFICIT NOTED. MSK: NORMAL RANGE OF MOTION FOR AGE. NO JOINT EFFUSION. SKIN: NORMAL FOR ETHNICITY; NO ECCHYMOSIS. NO LESION. GOOD TURGOR.; NO RASHES : NORMAL EXTERNAL GENITALIA. BABC[place] CATHETER IN PLACE. PSYCH : APPROPRIATE MOOD AND AFFECT. ALERT AWAKE ORIENTED X3 Objective Labs Result Diagrams: 08/12/21 12:08 08/12/21 12:08 Labs: Laboratory Results - last 24 hr 08/12/21 08/12/21 08/12/21 12:08 12:08 12:08 WBC 9.3 RBC 5.60 Hgb 16.7 Hct 47.2 MCV 84.3 MCH 29.8 MCHC 35.3 RDW 13.9 Plt Count 176 Neut % (Auto) 43.5 L Lymph % (Auto) 41.[address] [place] % (Auto) 13.8 Eos % (Auto) 0.6 L Baso % (Auto) 0.5 Neut # (Auto) 4000 Lymph # (Auto) 39[address] [place] # (Auto) 1300 H Eos # (Auto) 100 Baso # (Auto) 0 ABG pH ABG pCO2 ABG pO2 ABG HCO3 ABG Total CO2 ABG O2 Saturation ABG Base Excess FiO2 Sodium 129 L Potassium 4.5 Chloride 97 L Carbon Dioxide 21 L BUN 18 Creatinine 1.46 H Estimated GFR 50.1 L BUN/Creatinine Ratio 12.3 Glucose 79 Lactate 2.1 Calcium 9.0 Total Bilirubin 1.2 AST 65 H ALT 21 Alkaline Phosphatase 71 Total Protein 8.1 Albumin 4.5 Globulin 3.6 Albumin/Globulin Ratio 1.3 Lipase 178 Procalcitonin 0.79 H Random Cortisol Urine Color Urine Appearance Urine pH Ur Specific [place] Urine Protein Urine Glucose (UA) Urine Ketones Urine Occult Blood Urine Nitrate Urine Bilirubin Ur Bilirubin Confirm Urine Urobilinogen Ur Leukocyte Esterase Urine RBC Urine WBC Ur Squamous Epith Cells Amorphous Sediment Urine Bacteria Urine Mucus Ur Culture Indicated? Chlamy pneumoniae PCR Adenovirus (PCR) B. pertussis DNA (PCR) B.parapertussis DNA PCR Coronavirus OC43 (PCR) Coronavirus HKU1 (PCR) Coronavirus 229E (PCR) SARS-CoV-2 (PCR) Coronavirus NL63 (PCR) Human Metapneumovir PCR Influenza Type A (PCR) Influenza Type B (PCR) M. pneumoniae (PCR) Parainfluenza 1 (PCR) Parainfluenza 2 (PCR) Parainfluenza 3 (PCR) Parainfluenza 4 (PCR) RSV (PCR) Entero/Rhino (PCR) 08/12/21 08/12/21 08/12/21 13:11 13:45 14:24 WBC RBC Hgb Hct MCV MCH MCHC RDW Plt Count Neut % (Auto) Lymph % (Auto) [place] % (Auto) Eos % (Auto) Baso % (Auto) Neut # (Auto) Lymph # (Auto) [place] # (Auto) Eos # (Auto) Baso # (Auto) ABG pH ABG pCO2 ABG pO2 ABG HCO3 ABG Total CO2 ABG O2 Saturation ABG Base Excess FiO2 Sodium Potassium Chloride Carbon Dioxide BUN Creatinine Estimated GFR BUN/Creatinine Ratio Glucose Lactate Calcium Total Bilirubin AST ALT Alkaline Phosphatase Total Protein Albumin Globulin Albumin/Globulin Ratio Lipase Procalcitonin Random Cortisol 132 Urine Color Yellow Urine Appearance Slightly cloudy Urine pH 5.0 Ur Specific [place] >=1.030 H Urine Protein Trace H Urine Glucose (UA) Negative Urine Ketones 2+ H Urine Occult Blood 3+ H Urine Nitrate Negative Urine Bilirubin 1+ H Ur Bilirubin Confirm Negative Urine Urobilinogen 0.2 Ur Leukocyte Esterase Negative Urine RBC 1-5/hpf Urine WBC 1-5/hpf Ur Squamous Epith Cells 1-5 /hpf Amorphous Sediment 1+ Urine Bacteria Few (2-10) H Urine Mucus 1+ H Ur Culture Indicated? Specimen cultured Chlamy pneumoniae PCR Not detected Adenovirus (PCR) Not detected B. pertussis DNA (PCR) Not detected B.parapertussis DNA PCR Not detected Coronavirus OC43 (PCR) Not detected Coronavirus HKU1 (PCR) Not detected Coronavirus 229E (PCR) Not detected SARS-CoV-2 (PCR) Detected H Coronavirus NL63 (PCR) Not detected Human Metapneumovir PCR Not detected Influenza Type A (PCR) Not detected Influenza Type B (PCR) Not detected M. pneumoniae (PCR) Not detected Parainfluenza 1 (PCR) Not detected Parainfluenza 2 (PCR) Not detected Parainfluenza 3 (PCR) Not detected Parainfluenza 4 (PCR) Not detected RSV (PCR) Not detected Entero/Rhino (PCR) Not detected 08/12/21 08/12/21 14:30 14:51 WBC RBC Hgb Hct MCV MCH MCHC RDW Plt Count Neut % (Auto) Lymph % (Auto) [place] % (Auto) Eos % (Auto) Baso % (Auto) Neut # (Auto) Lymph # (Auto) [place] # (Auto) Eos # (Auto) Baso # (Auto) ABG pH 7.30 L ABG pCO2 37.2 ABG pO2 89 ABG HCO3 18 L ABG Total CO2 19 L ABG O2 Saturation 96 ABG Base Excess -8.0 L FiO2 28 Sodium Potassium Chloride Carbon Dioxide BUN Creatinine Estimated GFR BUN/Creatinine Ratio Glucose Lactate 1.4 Calcium Total Bilirubin AST ALT Alkaline Phosphatase Total Protein Albumin Globulin Albumin/Globulin Ratio Lipase Procalcitonin Random Cortisol Urine Color Urine Appearance Urine pH Ur Specific [place] Urine Protein Urine Glucose (UA) Urine Ketones Urine Occult Blood Urine Nitrate Urine Bilirubin Ur Bilirubin Confirm Urine Urobilinogen Ur Leukocyte Esterase Urine RBC Urine WBC Ur Squamous Epith Cells Amorphous Sediment Urine Bacteria Urine Mucus Ur Culture Indicated? Chlamy pneumoniae PCR Adenovirus (PCR) B. pertussis DNA (PCR) B.parapertussis DNA PCR Coronavirus OC43 (PCR) Coronavirus HKU1 (PCR) Coronavirus 229E (PCR) SARS-CoV-2 (PCR) Coronavirus NL63 (PCR) Human Metapneumovir PCR Influenza Type A (PCR) Influenza Type B (PCR) M. pneumoniae (PCR) Parainfluenza 1 (PCR) Parainfluenza 2 (PCR) Parainfluenza 3 (PCR) Parainfluenza 4 (PCR) RSV (PCR) Entero/Rhino (PCR) Assessment & Plan Assessment & Plan narrative: PROBLEM LIST ALTERED MENTAL STATUS. CONSIDER METABOLIC VERSUS TOXIC ENCEPHALOPATHY HYPONATREMIA. LIKELY MULTIFACTORIAL HYPOTENSION. NO SIGN OF SEPSIS. LIKELY SECONDARY TO FLUID DEPLETION INTRAVASCULARLY DEHYDRATION/INTRAVASCULAR FLUID DEPLETION. SECONDARY TO DECREASED ORAL INTAKE ACUTE KIDNEY INJURY. COULD BE PRERENAL AZOTEMIA METABOLIC ACIDOSIS. MULTIFACTORIAL ELEVATED LIVER ENZYME. HYPOTHYROIDISM PER HISTORY OMAIRA DISEASE PER HISTORY. NO SIGN OF CRISIS PLAN PATIENT WILL BE ADMITTED TO THE ICU FOR CLOSER MONITORING WILL CONSULT WITH THE INTENSIVE CARE TEAM Q 4 HOURS NEURO CHECK WILL BE ORDERED PATIENT STARTED ON IV FLUID AT 125 CC AN HOUR FOR NOW MULTIPLE BOLUSES OF NORMAL SALINE GIVEN IN THE ER ANTIBIOTICS ALSO GIVEN TO PATIENT IN THE ER HOWEVER I DID NOT SEE THE NEED WILL HOLD OFF ANY FURTHER DOSES FOR NOW PATIENT STARTED ON DECADRON HE HAS NO OVERT RESPIRATORY SYMPTOMS NOT REQUIRING ANY OXYGEN SUPPLEMENT TO MAINTAIN PROPER OXYGEN SATURATION HE IS ABLE TO FINISH A FULL SENTENCE WITHOUT HAVING TO STOP BECAUSE OF SHORTNESS OF BREATH NO FURTHER TREATMENT IN REGARD TO HIS COVID-19 PNEUMONITIS INDICATED AT THIS TIME. REPEAT CHEST X-RAY IN THE MORNING AVOID ALL NEPHROTOXINS PHARMACIST TO DOSE ALL MEDICATIONS FOR GFR MONITOR INPUT OUTPUT CLOSELY DAILY LAB TO FOLLOW AEIOU WILL ORDER A FULL TOX SCREEN ADDITIONAL MANAGEMENT AND DISCHARGE PER CLINICAL COURSE Time Spent With Patient Critical Care time: I spent a total of [] minutes of critical care time on this patient's care today; this time is exclusive of procedural time.
[2021-08-12 19:01] LABS: UR Morphine/Opiate cutoff 300 Negative (Negative); Ur Creatinine Normal (Normal); Ur Specific Gravity Normal (Normal); Urine Amphetamines Negative (Negative); Urine Barbiturates Negative (Negative); Urine Benzodiazepines Negative (Negative); Urine Cocaine Negative (Negative); Urine MDMA Negative (Negative); Urine Methadone Negative (Negative); Urine Methamphetamines Negative (Negative); Urine Oxycodone Negative (Negative); Urine Phencyclidine Negative (Negative); Urine Tetrahydrocannabinol Negative (Negative); Urine Tricyclic Antidepressant Negative (Negative); Urine pH Normal (Normal)
[2021-08-12 19:42] LABS: Creatine Kinase 1362 U/L (55-170); Ethanol (ETOH) < 10 mg/dL
[2021-08-12] MEDS: SODIUM CHLORIDE 0.9% 1,000 ML 150 ML IV (20:00)
--- NOTE | 2021-08-12 20:35 | P.TELICUCN_ITS ---
History of Present Illness Consult details Chief complaint: altered LOC, poss hypothermia, brought by APD :: This patient was seen via real time interactive two-way audiovisual telecommunication. 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 CTA lung was un remarkable, on RA. [facility] Medical History (Updated 08/12/21 @ 17:16 by Yancy Michele MD) Addisons disease Hypothyroid Surgical History No pertinent past surgical history Social History household members: children Smoking Status: Never smoker alcohol intake: current Current Medications Current Medications Medications: Home Medications levothyroxine 100 mcg tablet 100 mcg PO DAILY #0 06/07/12 [History Confirmed 04/02/18] fludrocortisone 0.1 mg tablet 0.1 mg PO DAILY 04/02/18 [History Confirmed 04/02/18] hydrocortisone 20 mg tablet 30 mg PO DAILY 04/02/18 [History Confirmed 04/02/18] Exam Vital Signs (past 8 hours): - 08/12/21 13:00 08/12/21 13:30 08/12/21 13:49 Temperature Pulse Rate 125 H 120 H 121 H Respiratory Rate 17 16 18 Blood Pressure 117/69 Pulse Oximetry 96 95 98 08/12/21 14:00 08/12/21 14:15 08/12/21 14:30 Temperature Pulse Rate 118 H 113 H 114 H Respiratory Rate 15 18 17 Blood Pressure 106/66 104/53 L Pulse Oximetry 98 98 08/12/21 14:45 08/12/21 15:05 08/12/21 15:15 Temperature Pulse Rate 109 H 111 H 110 H Respiratory Rate 16 21 23 Blood Pressure 114/65 Pulse Oximetry 100 83 L 99 08/12/21 15:30 08/12/21 15:45 08/12/21 16:00 Temperature Pulse Rate 107 H 107 H 105 H Respiratory Rate 21 19 21 Blood Pressure 98/57 L 90/50 L Pulse Oximetry 96 97 95 08/12/21 16:13 08/12/21 16:15 08/12/21 16:30 Temperature 98.7 F Pulse Rate 106 H 103 H 101 H Respiratory Rate 22 20 19 Blood Pressure 90/55 L 92/50 L Pulse Oximetry 94 90 L 93 08/12/21 16:40 08/12/21 16:45 08/12/21 17:00 Temperature 98.7 F Pulse Rate 101 H 102 H Respiratory Rate 19 20 Blood Pressure 87/51 L Pulse Oximetry 94 95 08/12/21 17:15 08/12/21 17:30 08/12/21 17:45 Temperature 98 F Pulse Rate 100 H 101 H 96 H Respiratory Rate 17 20 15 Blood Pressure 92/57 L 102/51 L Pulse Oximetry 96 95 96 Oxygen Delivery Method Room Air Oxygen Flow Rate 0 Objective Labs Result Diagrams: 08/12/21 12:08 08/12/21 12:08 Labs: Laboratory Results - last 24 hr 08/12/21 08/12/21 08/12/21 12:08 12:08 12:08 WBC 9.3 RBC 5.60 Hgb 16.7 Hct 47.2 MCV 84.3 MCH 29.8 MCHC 35.3 RDW 13.9 Plt Count 176 Neut % (Auto) 43.5 L Lymph % (Auto) 41.6 H [place] % (Auto) 13.8 Eos % (Auto) 0.6 L Baso % (Auto) 0.5 Neut # (Auto) 4000 Lymph # (Auto) 3900 [place] # (Auto) 1300 H Eos # (Auto) 100 Baso # (Auto) 0 ABG pH ABG pCO2 ABG pO2 ABG HCO3 ABG Total CO2 ABG O2 Saturation ABG Base Excess FiO2 Sodium 129 L Potassium 4.5 Chloride 97 L Carbon Dioxide 21 L BUN 18 Creatinine 1.46 H Estimated GFR 50.1 L BUN/Creatinine Ratio 12.3 Glucose 79 Lactate 2.1 Calcium 9.0 Total Bilirubin 1.2 AST 65 H ALT 21 Alkaline Phosphatase 71 Total Creatine Kinase Total Protein 8.1 Albumin 4.5 Globulin 3.6 Albumin/Globulin Ratio 1.3 Lipase 178 Procalcitonin 0.79 H Random Cortisol Urine Color Urine Appearance Urine pH Ur Specific [place] Urine Protein Urine Glucose (UA) Urine Ketones Urine Occult Blood Urine Nitrate Urine Bilirubin Ur Bilirubin Confirm Urine Urobilinogen Ur Leukocyte Esterase Urine RBC Urine WBC Ur Squamous Epith Cells Amorphous Sediment Urine Bacteria Urine Mucus Ur Culture Indicated? U Opiates 300ng/mL cut Ur Oxycodone Screen Urine Methadone Screen Ur Barbiturates Screen U Tricyclic Antidepress Ur Phencyclidine Scrn Ur Amphetamines Screen U Methamphetamines Scrn Ur MDMA Scrn (Ecstasy) U Benzodiazepines Scrn Urine Cocaine Screen U Marijuana (THC) Screen Ethyl Alcohol Chlamy pneumoniae PCR Adenovirus (PCR) B. pertussis DNA (PCR) B.parapertussis DNA PCR Coronavirus OC43 (PCR) Coronavirus HKU1 (PCR) Coronavirus 229E (PCR) SARS-CoV-2 (PCR) Coronavirus NL63 (PCR) Human Metapneumovir PCR Influenza Type A (PCR) Influenza Type B (PCR) M. pneumoniae (PCR) Parainfluenza 1 (PCR) Parainfluenza 2 (PCR) Parainfluenza 3 (PCR) Parainfluenza 4 (PCR) RSV (PCR) Entero/Rhino (PCR) 08/12/21 08/12/21 08/12/21 13:11 13:45 14:24 WBC RBC Hgb Hct MCV MCH MCHC RDW Plt Count Neut % (Auto) Lymph % (Auto) [place] % (Auto) Eos % (Auto) Baso % (Auto) Neut # (Auto) Lymph # (Auto) [place] # (Auto) Eos # (Auto) Baso # (Auto) ABG pH ABG pCO2 ABG pO2 ABG HCO3 ABG Total CO2 ABG O2 Saturation ABG Base Excess FiO2 Sodium Potassium Chloride Carbon Dioxide BUN Creatinine Estimated GFR BUN/Creatinine Ratio Glucose Lactate Calcium Total Bilirubin AST ALT Alkaline Phosphatase Total Creatine Kinase Total Protein Albumin Globulin Albumin/Globulin Ratio Lipase Procalcitonin Random Cortisol 132 Urine Color Yellow Urine Appearance Slightly cloudy Urine pH 5.0 Ur Specific [place] >=1.030 H Urine Protein Trace H Urine Glucose (UA) Negative Urine Ketones 2+ H Urine Occult Blood 3+ H Urine Nitrate Negative Urine Bilirubin 1+ H Ur Bilirubin Confirm Negative Urine Urobilinogen 0.2 Ur Leukocyte Esterase Negative Urine RBC 1-5/hpf Urine WBC 1-5/hpf Ur Squamous Epith Cells 1-5 /hpf Amorphous Sediment 1+ Urine Bacteria Few (2-10) H Urine Mucus 1+ H Ur Culture Indicated? Specimen cultured U Opiates 300ng/mL cut Ur Oxycodone Screen Urine Methadone Screen Ur Barbiturates Screen U Tricyclic Antidepress Ur Phencyclidine Scrn Ur Amphetamines Screen U Methamphetamines Scrn Ur MDMA Scrn (Ecstasy) U Benzodiazepines Scrn Urine Cocaine Screen U Marijuana (THC) Screen Ethyl Alcohol Chlamy pneumoniae PCR Not detected Adenovirus (PCR) Not detected B. pertussis DNA (PCR) Not detected B.parapertussis DNA PCR Not detected Coronavirus OC43 (PCR) Not detected Coronavirus HKU1 (PCR) Not detected Coronavirus 229E (PCR) Not detected SARS-CoV-2 (PCR) Detected H Coronavirus NL63 (PCR) Not detected Human Metapneumovir PCR Not detected Influenza Type A (PCR) Not detected Influenza Type B (PCR) Not detected M. pneumoniae (PCR) Not detected Parainfluenza 1 (PCR) Not detected Parainfluenza 2 (PCR) Not detected Parainfluenza 3 (PCR) Not detected Parainfluenza 4 (PCR) Not detected RSV (PCR) Not detected Entero/Rhino (PCR) Not detected 08/12/21 08/12/21 08/12/21 14:24 14:30 14:51 WBC RBC Hgb Hct MCV MCH MCHC RDW Plt Count Neut % (Auto) Lymph % (Auto) [place] % (Auto) Eos % (Auto) Baso % (Auto) Neut # (Auto) Lymph # (Auto) [place] # (Auto) Eos # (Auto) Baso # (Auto) ABG pH 7.30 L ABG pCO2 37.2 ABG pO2 89 ABG HCO3 18 L ABG Total CO2 19 L ABG O2 Saturation 96 ABG Base Excess -8.0 L FiO2 28 Sodium Potassium Chloride Carbon Dioxide BUN Creatinine Estimated GFR BUN/Creatinine Ratio Glucose Lactate 1.4 Calcium Total Bilirubin AST ALT Alkaline Phosphatase Total Creatine Kinase 1362 H Total Protein Albumin Globulin Albumin/Globulin Ratio Lipase Procalcitonin Random Cortisol Urine Color Urine Appearance Urine pH Ur Specific [place] Urine Protein Urine Glucose (UA) Urine Ketones Urine Occult Blood Urine Nitrate Urine Bilirubin Ur Bilirubin Confirm Urine Urobilinogen Ur Leukocyte Esterase Urine RBC Urine WBC Ur Squamous Epith Cells Amorphous Sediment Urine Bacteria Urine Mucus Ur Culture Indicated? U Opiates 300ng/mL cut Ur Oxycodone Screen Urine Methadone Screen Ur Barbiturates Screen U Tricyclic Antidepress Ur Phencyclidine Scrn Ur Amphetamines Screen U Methamphetamines Scrn Ur MDMA Scrn (Ecstasy) U Benzodiazepines Scrn Urine Cocaine Screen U Marijuana (THC) Screen Ethyl Alcohol < 10 Chlamy pneumoniae PCR Adenovirus (PCR) B. pertussis DNA (PCR) B.parapertussis DNA PCR Coronavirus OC43 (PCR) Coronavirus HKU1 (PCR) Coronavirus 229E (PCR) SARS-CoV-2 (PCR) Coronavirus NL63 (PCR) Human Metapneumovir PCR Influenza Type A (PCR) Influenza Type B (PCR) M. pneumoniae (PCR) Parainfluenza 1 (PCR) Parainfluenza 2 (PCR) Parainfluenza 3 (PCR) Parainfluenza 4 (PCR) RSV (PCR) Entero/Rhino (PCR) 08/12/21 18:51 WBC RBC Hgb Hct MCV MCH MCHC RDW Plt Count Neut % (Auto) Lymph % (Auto) [place] % (Auto) Eos % (Auto) Baso % (Auto) Neut # (Auto) Lymph # (Auto) [place] # (Auto) Eos # (Auto) Baso # (Auto) ABG pH ABG pCO2 ABG pO2 ABG HCO3 ABG Total CO2 ABG O2 Saturation ABG Base Excess FiO2 Sodium Potassium Chloride Carbon Dioxide BUN Creatinine Estimated GFR BUN/Creatinine Ratio Glucose Lactate Calcium Total Bilirubin AST ALT Alkaline Phosphatase Total Creatine Kinase Total Protein Albumin Globulin Albumin/Globulin Ratio Lipase Procalcitonin Random Cortisol Urine Color Urine Appearance Urine pH Ur Specific [place] Urine Protein Urine Glucose (UA) Urine Ketones Urine Occult Blood Urine Nitrate Urine Bilirubin Ur Bilirubin Confirm Urine Urobilinogen Ur Leukocyte Esterase Urine RBC Urine WBC Ur Squamous Epith Cells Amorphous Sediment Urine Bacteria Urine Mucus Ur Culture Indicated? U Opiates 300ng/mL cut Negative Ur Oxycodone Screen Negative Urine Methadone Screen Negative Ur Barbiturates Screen Negative U Tricyclic Antidepress Negative Ur Phencyclidine Scrn Negative Ur Amphetamines Screen Negative U Methamphetamines Scrn Negative Ur MDMA Scrn (Ecstasy) Negative U Benzodiazepines Scrn Negative Urine Cocaine Screen Negative U Marijuana (THC) Screen Negative Ethyl Alcohol Chlamy pneumoniae PCR Adenovirus (PCR) B. pertussis DNA (PCR) B.parapertussis DNA PCR Coronavirus OC43 (PCR) Coronavirus HKU1 (PCR) Coronavirus 229E (PCR) SARS-CoV-2 (PCR) Coronavirus NL63 (PCR) Human Metapneumovir PCR Influenza Type A (PCR) Influenza Type B (PCR) M. pneumoniae (PCR) Parainfluenza 1 (PCR) Parainfluenza 2 (PCR) Parainfluenza 3 (PCR) Parainfluenza 4 (PCR) RSV (PCR) Entero/Rhino (PCR) Assessment & Plan Assessment & Plan narrative: 56-year-old gentleman with [place]'s disease , admitted for H/o of fever, AMS, tachycardia and low BP, found to have hyponatremia, COVID + ( vaccinated) he received emperic Ceftriaxone,cultures sent, recived 3 L of NS boluses, stress dose of Hydrocortisone. CTA lung was un remarkable, on RA. Acute encephalopathy ? metabolic Early tio crisis Hyponatremia 2/2 hypovolemia and / or Tio disease OSCAR Mild COVID infection on RA Rec: MRI brain Neuro checks Q1 hr ( no motor deficit) Check Ammonia leve, B12 level, TSH MV, folic acid and thiamin Trend CK [place] score Renal US Urine sodium and osm Hold futher IV fluid for tonight as pt received > 30 ml/ kg If mental status showed no improvement , consider LP and empiric treatment for menigo encephalitis Holding off antibiotics for now as mental status started to improve per staff and on meningeal signs) Received Stress dose steroid, now on Dexamethsoane, no indication for COVID treatement, resume home fludrocortisone, hydrocortisone and synthroid in am On PPI CCT 60 min Time Spent With Patient Critical Care time: I spent a total of [] minutes of critical care time on this patient's care today; this time is exclusive of procedural time.
[2021-08-12 21:21] LABS: Sodium Urine Random 105 mmol/L (30-90)
[2021-08-12 21:44] LABS: Ammonia (NH3) < 9 umol/L (9-30)
[2021-08-12 22:38] LABS: TSH w/ Reflex to FT4 1.22 uIU/mL (0.47-4.68)
[2021-08-13] VITALS (16 sets, daily range): BP systolic 90–122; BP diastolic 52–65; PULSE 74–87; RESP 13–18; TEMP 36.5–37.1; O2SAT 93–99
[2021-08-13 00:21] LABS: Vitamin B12 240 pg/mL (239-931)
[2021-08-13] MEDS: SODIUM CHLORIDE 0.9% 1,000 ML 150 ML IV (04:09)
[2021-08-13 06:10] LABS: Add Manual Diff / Slide Review NO; Basophils Absolute Auto 0 /uL (0-100); Basophils Percent Auto 0.2 % (0-2); Eosinophils Absolute Auto 0 /uL (0-450); Eosinophils Percent Auto 0.1 % (2-4); Hematocrit 39.4 % (41-53); Hemoglobin 13.5 g/dL (13.5-17.5); Lymphocytes Absolute Auto 1100 /uL (1100-4500); Lymphocytes Percent Auto 21.3 % (25-40); Mean Corpuscular HGB Conc 34.4 % (30-36); Mean Corpuscular Hemoglobin 29.4 PG (26-34); Mean Corpuscular Volume 85.5 fL (80-100); Monocytes Absolute Auto 200 /uL (0-900); Monocytes Percent Auto 4.1 % (3-14); Neutrophils Absolute Auto 4000 /uL (1500-7000); Neutrophils Percent Auto 74.3 % (50-75); Platelet Count 127 X10^3/uL (150-400); Red Blood Cell Count 4.61 X10^6/uL (4.5-5.9); Red Cell Distribution Width 13.7 % (11.6-14.8); White Blood Cell Count 5.3 X10^3/uL (4.5-11.0)
--- NOTE | 2021-08-13 06:30 | DI.RAD.S_ITS ---
PROCEDURE: XR CHEST 1V INDICATIONS: COVID 19 TECHNIQUE: One view of the chest was acquired. COMPARISON: [facility], CR, XR CHEST 1V, 08/12/2021, 12:20. FINDINGS: Surgical changes and devices: None. Lungs and pleura: Lungs are clear. No pleural effusions or pneumothorax. Mediastinum: Mediastinal contours appear normal. Heart size is normal. Bones and chest wall: No suspicious bony lesions. Overlying soft tissues appear unremarkable. IMPRESSION: No acute cardiopulmonary disease process. Dictated by: Kathya Bautista MD, PhD on 08/13/2021 at 8:44 Approved by: Kathya Bautista MD, PhD on 08/13/2021 at 8:45
[2021-08-13 06:54] LABS: Alanine Aminotransferase 20 IU/L (<50); Albumin Globulin Ratio 1.2 (1.0-2.8); Alkaline Phosphatase 38 U/L (38-126); Aspartate Aminotransferase 67 IU/L (17-59); BUN Creatinine Ratio 18.2 (6-22); Bilirubin Total 0.5 mg/dL (0.2-1.3); Blood Urea Nitrogen 16 mg/dL (9-20); Calcium 7.3 mg/dL (8.4-10.2); Carbon Dioxide 16 mmol/L (22-32); Chloride 109 mmol/L (98-107); Estimated Glomerular Filt Rate > 60.0 mL/min (>60); Globulin 2.6 g/dL (1.7-4.1); Glucose 91 mg/dL (70-100); HEMOLYSIS 33 (0-50); Magnesium 1.6 mg/dL (1.6-2.3); Phosphorous 3.6 mg/dL (2.5-4.5); Potassium 4.9 mmol/L (3.4-5.1); Sodium 133 mmol/L (137-145); Total Protein 5.6 g/dL (6.3-8.2)
[2021-08-13 07:17] LABS: TSH w/ Reflex to FT4 0.93 uIU/mL (0.47-4.68)
--- NOTE | 2021-08-13 07:36 | DI.MRI.S_ITS ---
PROCEDURE: MR HEAD/BRAIN WO/W CON INDICATIONS: altered mentation; TECHNIQUE: Noncontrast axial T1 spin echo, axial T2 fast spin echo, sagittal and axial FLAIR, coronal T2 fast spin echo, axial gradient echo, axial diffusion and ADC through the brain. After the administration of contrast, axial and coronal 3D VIBE or T1 spin echo with fat saturation through the brain. COMPARISON: [facility], CT, CT HEAD/BRAIN WO CON, 08/12/2021, 13:42. FINDINGS: Image quality: Excellent. CSF Spaces: Basal cisterns are patent. No extra-axial fluid collections. Ventricles are normal in size and shape. Brain: No midline shift. No intracranial bleeds or masses. No abnormal intracranial enhancement. The brainstem appears normal. Diffusion-weighted images demonstrate no acute ischemic insults. No chronic ischemic insults. Normal intravascular flow voids are present. Skull and face: Calvarial marrow is normal in signal. Orbits appear normal. Sinuses: There is a mucous retention cyst seen within the right maxillary sinus. Sinuses and mastoids otherwise appear clear. IMPRESSION: No findings of acute or subacute infarction can be seen. No acute intracranial process is seen. Dictated by: Jose Miguel Patterson M.D. on 08/13/2021 at 14:33 Approved by: Jose Miguel Patterson M.D. on 08/13/2021 at 14:34
[2021-08-13] MEDS: LEVOTHYROXINE 100 MCG TABLET PO (08:00)
[2021-08-13] MEDS: SUCRALFATE 1 GM TABLET PO ×3 (08:00→21:40)
[2021-08-13 08:49] LABS: Adrenocorticotropic Hormone 92.1 pg/mL (7.2-63.3)
--- NOTE | 2021-08-13 09:32 | CM.DANOTE ---
Patient is a 56 yo male who was admitted on 08/12/21 for AMS, Hypothermia. Pt has REG [employer] for insurance and his PCP is Dr. Person in [place]. EMR was reviewed. Per MD, pt with hx of hypothyroidism and addisions disease and admitted with encephalopathy and dehydration and tested positive for COVID19 pneumonia. Pt currently not needing oxygen and MRI ordered to confirm no seizure type activity and potential pt medically stable to d/c to home today. 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 Therefore no bedside assessment completed at this time. Per RN, pt resides at home with spouse and family and supportive son had taken pt's belongings home at admission. Plan: SW to follow for plan of d/c to home with family assist and any further identified discharge planning needs. JUAN Cooley Discharge Planning/Care Management CM Discharge Assessment Start: 08/13/21 09:28 Freq: Status: Active Protocol: Document 08/13/21 09:28 BF (Rec: 08/13/21 09:32 [id number]) Discharge Planning Assessment Assigned Rail Operations Controller JUAN Patino DPOA/Assigned Designee Name unknown, likely informally spouse Airam Contact Information [phone] Advance Directives? No Advance Directives on File No History Provided By Patient,Medical Record Has Patient been admitted in last 30 No days? Prior Living Arrangements House Household Members family Type of transporation used prior to Drives own vehicle admit Independent with ADL's Yes Is patient alert and oriented? Yes Caregiver for Another No Barriers to Discharge No Discharge Plan Home Transportation Arrangement Patient's Dtr works next door and likely can provide transport if needed. Referrals Initiated None needed Review Status In Process Please Provide Date Initial DC 08/13/21 Assessment Was Performed Next Review Type Continued Stay Review
[2021-08-13 09:55] LABS: Creatine Kinase 2264 U/L (55-170)
[2021-08-13] MEDS: FOLIC ACID 1 MG TABLET PO (10:16)
[2021-08-13] MEDS: MULTIVITAMIN 1 TABLET 1 TAB PO (10:16)
[2021-08-13] MEDS: CHOLECALCIFEROL (VITAMIN D3) 1,000 UNIT TABLET 1000 UNIT PO (10:16)
[2021-08-13] MEDS: ENOXAPARIN 40 MG/0.4 ML SYRINGE SUBCUT (10:16)
[2021-08-13] MEDS: FAMOTIDINE 20 MG TABLET PO ×2 (10:16→21:40)
[2021-08-13] MEDS: ASCORBIC ACID 500 MG TABLET PO ×2 (10:16→21:40)
[2021-08-13] MEDS: ZINC SULFATE 220 MG CAPSULE PO (10:16)
[2021-08-13] MEDS: CYANOCOBALAMIN (VITAMIN B-12) 100 MCG TABLET PO (10:17)
[2021-08-13] MEDS: HYDROCORTISONE 10 MG TABLET 30 MG PO (10:17)
[2021-08-13] MEDS: FLUDROCORTISONE 0.1 MG TABLET PO (10:17)
[2021-08-13] MEDS: THIAMINE 100 MG in SODIUM CHLORIDE 0.9% 100 ML 404 ML IV (11:00)
--- NOTE | 2021-08-13 14:56 | PC.NURSE ---
Pt ambulates with steady gait to wheelchair and is taken to MRI with face mask on. Pt denies SOB, CP or dizziness. Pt is A&Ox4.
--- NOTE | 2021-08-13 17:35 | P.PN_ITS ---
Subjective Subjective Date Patient Seen: 08/13/21 Interval history: THIS IS A 56-YEAR-OLD MALE IN THE HOSPITAL WITH ALTERED MENTAL STATUS WELL OTHER LABS ARRANGEMENT OF UNCLEAR CAUSE. HAVE A HISTORY OF OMAIRA DISEASE WELL HYPOTHYROIDISM TODAY FEELING MUCH BETTER MENTATION APPEARED TO BE BACK TO BASELINE DENIES ANY INCREASING SHORTNESS OF BREATH NO CHEST PAIN OR CHEST PRESSURE NO NAUSEA OR VOMITING Exam Vital Signs (past 8 hours): - 08/13/21 10:00 08/13/21 13:06 Temperature 97.8 F Pulse Rate 74 84 Respiratory Rate 17 18 Blood Pressure 122/58 L 103/64 Pulse Oximetry 93 97 Oxygen Delivery Method Room Air Oxygen Flow Rate 0 Narrative Exam Narrative: NO ACUTE DISTRESS.? APPEARS OLDER THAN STATED AGE.? POOR DENTITION.? WELL NOURISHED NOSE.? NO RUNNY NOSE NOTED.? NO TRAUMA HEAD ATRAUMATIC NORMOCEPHALIC NECK : SUPPLE WITHOUT ADENOPATHY NO CAROTID BRUITS EYE:? EOMI, PERRLA, NORMAL CONJUNCTIVA; NO JAUNDICE CHEST:? REGULAR RATE.? ? NO RUBS.? PMI IS NON DISPLACED.? NO MURMURS; NORMAL S1- S2 PULMONARY:? DECREASED BS OVER THE BASES.? MILD BIBASILAR CRACKLES NOTED; NO INCREASED DULLNESS TO PERCUSSION ABDOMEN:? SOFT.? NONTENDER.? NONDISTENDED.? BOWEL SOUNDS ARE PRESENT IN ALL 4 QUADRANTS.? NO MASS. EXTREMITIES: NO EDEMA..? NO CYANOSIS CLUBBING NOTED. NEURO:? CRANIAL NERVES 2-12 GROSSLY INTACT. NO FOCAL NEUROLOGICAL DEFICIT NOTED. MSK:? NORMAL RANGE OF MOTION FOR AGE.? NO JOINT EFFUSION. SKIN:? NORMAL FOR ETHNICITY; NO ECCHYMOSIS.? NO LESION. ? GOOD? TURGOR.; NO RASHES :? NORMAL EXTERNAL GENITALIA.? BABCOCK CATHETER IN PLACE. PSYCH :? APPROPRIATE MOOD AND AFFECT.? ALERT AWAKE ORIENTED X3 Objective Labs Result Diagrams: 08/13/21 05:49 08/13/21 05:49 Labs: Laboratory Results - last 24 hr 08/12/21 08/12/21 08/12/21 14:24 14:24 17:45 WBC RBC Hgb Hct MCV MCH MCHC RDW Plt Count Neut % (Auto) Lymph % (Auto) [place] % (Auto) Eos % (Auto) Baso % (Auto) Neut # (Auto) Lymph # (Auto) [place] # (Auto) Eos # (Auto) Baso # (Auto) Sodium Potassium Chloride Carbon Dioxide BUN Creatinine Estimated GFR BUN/Creatinine Ratio Glucose Calcium Phosphorus Magnesium Total Bilirubin AST ALT Alkaline Phosphatase Ammonia Total Creatine Kinase 1362 H Total Protein Albumin Globulin Albumin/Globulin Ratio Vitamin B12 TSH ACTH 92.1 H Ur Random Sodium Nasal Screen MRSA (PCR) Negative for mrsa U Opiates 300ng/mL cut Ur Oxycodone Screen Urine Methadone Screen Ur Barbiturates Screen U Tricyclic Antidepress Ur Phencyclidine Scrn Ur Amphetamines Screen U Methamphetamines Scrn Ur MDMA Scrn (Ecstasy) U Benzodiazepines Scrn Urine Cocaine Screen U Marijuana (THC) Screen Ethyl Alcohol < 10 08/12/21 08/12/21 08/12/21 18:51 20:30 21:25 WBC RBC Hgb Hct MCV MCH MCHC RDW Plt Count Neut % (Auto) Lymph % (Auto) [place] % (Auto) Eos % (Auto) Baso % (Auto) Neut # (Auto) Lymph # (Auto) [place] # (Auto) Eos # (Auto) Baso # (Auto) Sodium Potassium Chloride Carbon Dioxide BUN Creatinine Estimated GFR BUN/Creatinine Ratio Glucose Calcium Phosphorus Magnesium Total Bilirubin AST ALT Alkaline Phosphatase Ammonia < 9 L Total Creatine Kinase Total Protein Albumin Globulin Albumin/Globulin Ratio Vitamin B12 TSH ACTH Ur Random Sodium 105 H Nasal Screen MRSA (PCR) U Opiates 300ng/mL cut Negative Ur Oxycodone Screen Negative Urine Methadone Screen Negative Ur Barbiturates Screen Negative U Tricyclic Antidepress Negative Ur Phencyclidine Scrn Negative Ur Amphetamines Screen Negative U Methamphetamines Scrn Negative Ur MDMA Scrn (Ecstasy) Negative U Benzodiazepines Scrn Negative Urine Cocaine Screen Negative U Marijuana (THC) Screen Negative Ethyl Alcohol 08/12/21 08/12/21 08/13/21 21:25 21:25 05:49 WBC 5.3 RBC 4.61 Hgb 13.5 Hct 39.4 L MCV 85.5 MCH 29.4 MCHC 34.4 RDW 13.7 Plt Count 127 L Neut % (Auto) 74.3 D Lymph % (Auto) 21.3 L D [place] % (Auto) 4.1 Eos % (Auto) 0.1 L Baso % (Auto) 0.2 Neut # (Auto) 4000 Lymph # (Auto) 1100 [place] # (Auto) 200 Eos # (Auto) 0 Baso # (Auto) 0 Sodium Potassium Chloride Carbon Dioxide BUN Creatinine Estimated GFR BUN/Creatinine Ratio Glucose Calcium Phosphorus Magnesium Total Bilirubin AST ALT Alkaline Phosphatase Ammonia Total Creatine Kinase Total Protein Albumin Globulin Albumin/Globulin Ratio Vitamin B12 240 TSH 1.22 ACTH Ur Random Sodium Nasal Screen MRSA (PCR) U Opiates 300ng/mL cut Ur Oxycodone Screen Urine Methadone Screen Ur Barbiturates Screen U Tricyclic Antidepress Ur Phencyclidine Scrn Ur Amphetamines Screen U Methamphetamines Scrn Ur MDMA Scrn (Ecstasy) U Benzodiazepines Scrn Urine Cocaine Screen U Marijuana (THC) Screen Ethyl Alcohol 08/13/21 08/13/21 08/13/21 05:49 05:49 05:49 WBC RBC Hgb Hct MCV MCH MCHC RDW Plt Count Neut % (Auto) Lymph % (Auto) [place] % (Auto) Eos % (Auto) Baso % (Auto) Neut # (Auto) Lymph # (Auto) [place] # (Auto) Eos # (Auto) Baso # (Auto) Sodium 133 L Potassium 4.9 Chloride 109 H Carbon Dioxide 16 L BUN 16 Creatinine 0.88 Estimated GFR > 60.0 BUN/Creatinine Ratio 18.2 Glucose 91 Calcium 7.3 L Phosphorus 3.6 Magnesium 1.6 Total Bilirubin 0.5 AST 67 H ALT 20 Alkaline Phosphatase 38 Ammonia Total Creatine Kinase 2264 H D Total Protein 5.6 L Albumin 3.0 L Globulin 2.6 Albumin/Globulin Ratio 1.2 Vitamin B12 TSH 0.93 D ACTH Ur Random Sodium Nasal Screen MRSA (PCR) U Opiates 300ng/mL cut Ur Oxycodone Screen Urine Methadone Screen Ur Barbiturates Screen U Tricyclic Antidepress Ur Phencyclidine Scrn Ur Amphetamines Screen U Methamphetamines Scrn Ur MDMA Scrn (Ecstasy) U Benzodiazepines Scrn Urine Cocaine Screen U Marijuana (THC) Screen Ethyl Alcohol [facility] Medical History (Updated 08/12/21 @ 17:16 by Yancy Michele MD) Addisons disease Hypothyroid Surgical History No pertinent past surgical history Social History household members: family Smoking Status: Never smoker alcohol intake: current Assessment & Plan Assessment & Plan narrative: PROBLEM LIST COVID-19 INFECTION WITHOUT NOTICEABLE SYMPTOMS. MONITOR CLOSELY METABOLIC /TOXIC ENCEPHALOPATHY. RESOLVED HYPONATREMIA.? LIKELY MULTIFACTORIAL. STABLE SODIUM LEVEL HYPOTENSION.? NO SIGN OF SEPSIS.? LIKELY SECONDARY TO FLUID DEPLETION INTRAVASCULARLY. RESOLVED DEHYDRATION/INTRAVASCULAR FLUID DEPLETION.? SECONDARY TO DECREASED ORAL INTAKE. RESOLVING ACUTE KIDNEY INJURY.? COULD BE PRERENAL AZOTEMIA. IMPROVED METABOLIC ACIDOSIS.? MONITOR CLOSELY ELEVATED LIVER ENZYME.?. MONITOR CLOSELY HYPOTHYROIDISM PER HISTORY OMAIRA? DISEASE PER HISTORY.? NO SIGN OF CRISIS RHABDOMYOLYSIS. MONITOR CPK LEVEL CLOSELY PLAN 08/13 SIGNIFICANT CHANGE IN MENTATION IS NOTED OVER THE LAST 24 HOURS THE REASON OF PATIENT'S PRESENTATION THE HOSPITAL STILL ON CLEAR SOME MINIMAL LABORATORY DERANGEMENT NOTED BUT NOT SIGNIFICANT ENOUGH TO BE CAUSE OF THE CHANGE IN MENTATION WILL CONTINUE TO FOLLOW UP ON A 12 HOURS CLOSELY LAB DOZEN ORDERED HOWEVER WILL TRANSFERRED TO THE MEDICAL FLOOR OUT OF THE ICU MOBILIZE MUCH TOLERATED ENCOURAGE PATIENT TO USE INCENTIVE SPIROMETER WHILE AWAKE CONTINUE HOME MED NO INDICATION TO TREAT HIS COVID-19 SINCE PATIENT IS ASYMPTOMATIC ADDITIONAL MANAGEMENT PER CLINICAL COURSE POSSIBLE DISCHARGE IN THE MORNING IF CLINICALLY STABLE 08/12 PATIENT WILL BE ADMITTED TO THE ICU FOR CLOSER MONITORING WILL CONSULT WITH THE INTENSIVE CARE TEAM Q 4 HOURS NEURO CHECK WILL BE ORDERED PATIENT STARTED ON IV FLUID AT 125 CC AN HOUR FOR NOW MULTIPLE BOLUSES OF NORMAL SALINE GIVEN IN THE ER ANTIBIOTICS ALSO GIVEN TO PATIENT IN THE ER HOWEVER I DID NOT SEE THE NEED WILL HOLD OFF ANY FURTHER DOSES FOR NOW PATIENT STARTED ON DECADRON HE HAS NO OVERT RESPIRATORY SYMPTOMS NOT REQUIRING ANY OXYGEN SUPPLEMENT TO MAINTAIN PROPER OXYGEN SATURATION HE IS ABLE TO FINISH A FULL SENTENCE WITHOUT HAVING TO STOP BECAUSE OF SHORTNESS OF BREATH NO FURTHER TREATMENT IN REGARD TO HIS COVID-19 PNEUMONITIS INDICATED AT THIS TIME. REPEAT CHEST X-RAY IN THE MORNING AVOID ALL NEPHROTOXINS PHARMACIST TO DOSE ALL MEDICATIONS FOR GFR MONITOR INPUT OUTPUT CLOSELY DAILY LAB TO FOLLOW AEIOU WILL ORDER A FULL TOX SCREEN ADDITIONAL MANAGEMENT AND DISCHARGE PER CLINICAL COURSE Time Spent With Patient Critical Care time: I spent a total of [] minutes of critical care time on this patient's care today; this time is exclusive of procedural time.
[2021-08-13] MEDS: MELATONIN 3 MG TABLET 9 MG PO (21:40)
[2021-08-13] MEDS: SODIUM CHLORIDE 0.9% FLUSH 10 ML IV (23:45)
[2021-08-14] VITALS (51 sets, daily range): BP systolic 92–112; BP diastolic 53–74; PULSE 71–104; RESP 15–34; TEMP 36.5–36.7; O2SAT 96–99
[2021-08-14] MEDS: LEVOTHYROXINE 100 MCG TABLET PO (05:03)
[2021-08-14 06:16] LABS: Add Manual Diff / Slide Review NO; Basophils Absolute Auto 0 /uL (0-100); Basophils Percent Auto 0.1 % (0-2); Eosinophils Absolute Auto 0 /uL (0-450); Hemoglobin 12.5 g/dL (13.5-17.5); Lymphocytes Absolute Auto 1500 /uL (1100-4500); Lymphocytes Percent Auto 16.3 % (25-40); Mean Corpuscular HGB Conc 34.8 % (30-36); Mean Corpuscular Hemoglobin 29.3 PG (26-34); Mean Corpuscular Volume 84.1 fL (80-100); Monocytes Absolute Auto 500 /uL (0-900); Monocytes Percent Auto 5.6 % (3-14); Neutrophils Absolute Auto 7200 /uL (1500-7000); Platelet Count 123 X10^3/uL (150-400); Red Blood Cell Count 4.28 X10^6/uL (4.5-5.9); Red Cell Distribution Width 14.2 % (11.6-14.8); White Blood Cell Count 9.2 X10^3/uL (4.5-11.0)
[2021-08-14 06:25] LABS: Creatine Kinase 947 U/L (55-170)
[2021-08-14 06:27] LABS: Alanine Aminotransferase 20 IU/L (<50); Albumin 3.2 g/dL (3.5-5.0); Albumin Globulin Ratio 1.2 (1.0-2.8); Alkaline Phosphatase 40 U/L (38-126); Aspartate Aminotransferase 55 IU/L (17-59); BUN Creatinine Ratio 19.8 (6-22); Bilirubin Total 0.6 mg/dL (0.2-1.3); Blood Urea Nitrogen 17 mg/dL (9-20); Carbon Dioxide 21 mmol/L (22-32); Chloride 110 mmol/L (98-107); Estimated Glomerular Filt Rate > 60.0 mL/min (>60); Globulin 2.7 g/dL (1.7-4.1); Glucose 99 mg/dL (70-100); HEMOLYSIS < 15 (0-50); Phosphorous 1.7 mg/dL (2.5-4.5); Potassium 4.1 mmol/L (3.4-5.1); Sodium 134 mmol/L (137-145); Total Protein 5.9 g/dL (6.3-8.2)
[2021-08-14] MEDS: HYDROCORTISONE 10 MG TABLET 30 MG PO (09:28)
[2021-08-14] MEDS: FLUDROCORTISONE 0.1 MG TABLET PO (09:28)
[2021-08-14] MEDS: CYANOCOBALAMIN (VITAMIN B-12) 100 MCG TABLET PO (09:28)
[2021-08-14] MEDS: THIAMINE 100 MG in SODIUM CHLORIDE 0.9% 100 ML 404 ML IV (09:29)
[2021-08-14] MEDS: MULTIVITAMIN 1 TABLET 1 TAB PO (09:34)
[2021-08-14] MEDS: FOLIC ACID 1 MG TABLET PO (09:34)
[2021-08-14] MEDS: CHOLECALCIFEROL (VITAMIN D3) 1,000 UNIT TABLET 1000 UNIT PO (09:34)
[2021-08-14] MEDS: ASCORBIC ACID 500 MG TABLET PO (09:34)
[2021-08-14] MEDS: ZINC SULFATE 220 MG CAPSULE PO (09:34)
[2021-08-14] MEDS: FAMOTIDINE 20 MG TABLET PO (09:34)
[2021-08-14] MEDS: SODIUM CHLORIDE 0.9% FLUSH 10 ML IV (09:35)
[2021-08-14] MEDS: ENOXAPARIN 40 MG/0.4 ML SYRINGE SUBCUT (09:44)
[2021-08-14 10:10] LABS: Osmolality Urine 672 mOsmol/kg (.)
--- NOTE | 2021-08-14 10:55 | PM.DS.1 ---
History of Present Illness History of Present Illness Chief complaint: altered LOC, poss hypothermia, brought by APD Narrative: THIS IS A 56-YEAR-OLD MALE WITH A PAST MEDICAL HISTORY SIGNIFICANT FOR HYPOTHYROIDISM AND OMAIRA DISEASE. PATIENT WAS BROUGHT TO THE HOSPITAL AND CONFUSED REPORTEDLY PER ER REPORT. BY THE TIME PATIENT WAS SEEN IN THE ICU, HE WAS ALERT, AWAKE, ORIENTED X3. HE DENIES ANY FALLS. NO TRAUMA. NO RECENT ILLNESS. NO RECENT TRAVELS. HE IS NOT SURE WHAT HAPPENED. HE DOES HAVE FAMILY AT HOME LIVING HIM. HE ALSO REPORTED THAT HE HAS NOT VACCINATED AGAINST COVID 19 IN THE ER, HIS LABS ARE SIGNIFICANT FOR MILD ACIDOSIS NOTED ON ABG. HYPONATREMIA AND ACUTE KIDNEY INJURY WITH A CREATININE OF 1.[address] SCAN OF THE CHEST WITH CONTRAST RULED OUT PULMONARY EMBOLISM. NO SIGNIFICANT INFILTRATIVE DISEASE NOTED ON THE X-RAY. CT SCAN OF THE HEAD WAS ALSO NEGATIVE. Discharge Providers Provider Date of admission: 08/12/21 17:33 Discharge Date: 08/14/21 Primary care physician: Anam Watson MD Consults: 08/12/21 17:55 Consult to Tele-on call pharmacy technician Routine Comment: Consulting Provider: [employer]el [employer] Reason for consultation: Net [employer] services Discharge provider: Esme Cadena, Summary Hospital Course Discharge Diagnosis: COVID-19 INFECTION. CONSERVATIVE MANAGEMENT ?METABOLIC /TOXIC? ENCEPHALOPATHY.? RESOLVED HYPONATREMIA.? LIKELY MULTIFACTORIAL.? STABLE SODIUM LEVEL. NO FURTHER WORKUP MANAGEMENT NEEDED INPATIENT HYPOTENSION.? NO SIGN OF SEPSIS.? LIKELY SECONDARY TO FLUID DEPLETION INTRAVASCULARLY.? RESOLVED DEHYDRATION/INTRAVASCULAR FLUID DEPLETION.? SECONDARY TO DECREASED ORAL INTAKE.? RESOLVED ACUTE KIDNEY INJURY.? COULD BE PRERENAL AZOTEMIA. ? RESOLVED METABOLIC ACIDOSIS.?? MONITOR CLOSELY. LIKELY CHRONIC ANDASSOCIATED WITH OMAIRA DISEASE ELEVATED LIVER ENZYME.?.? RESOLVED HYPOTHYROIDISM PER HISTORY. CONTINUE HOME MED OMAIRA? DISEASE PER HISTORY.? NO SIGN OF CRISIS. FOLLOW OUTPATIENT WITH ENDOCRINOLOGY ?RHABDOMYOLYSIS.? RESOLVING Hospital Course: THIS IS A 56-YEAR-OLD MALE WHO WAS BROUGHT TO THE HOSPITAL WITH CHANGE IN MENTATION OF UNCLEAR CAUSE. THE PRIMARY SUSPICION OF OMAIRA CRISIS HAS BEEN RULED OUT AT THIS TIME. PATIENT WAS SIGNIFICANTLY DEHYDRATED AND HEAD TO BE AGGRESSIVELY REHYDRATED. HE ALSO HAS RHABDOMYOLYSIS WITH ELEVATED CPK LEVEL WHICH AT THIS TIME IS IMPROVING. PATIENT WAS ALSO DIAGNOSED WITH COVID-19 INFECTION HOWEVER NO SIGN OF SEPTAL FAILURE. HE HAS BEEN TREATED CONSERVATIVELY SINCE ADMITTED TO THE HOSPITAL. NO ANTIVIRAL THERAPY OR ANTIBIOTICS THERAPY HAS BEEN GIVEN AT THIS TIME DUE TO LIMITED SIDE OF RESPIRATORY FAILURE. HIS LABS HAVE SIGNIFICANTLY IMPROVED HIS VITAL SIGNS IMPROVED OVER ALSO HOWEVER PATIENT WILL NEED FURTHER WORKUP AND MANAGEMENT OUTPATIENT WITH ENDOCRINOLOGY, POSSIBLE NEPHROLOGY AND HIS PRIMARY CARE PHYSICIAN. AGAIN THE UNDERLYING CAUSE OF HIS CHANGE IN MENTATION WHICH HAPPENED ABRUPTLY IS UNCLEAR. I SPOKE TO PATIENT AT LENGTH IN REGARD TO THE CASE. HE WILL NEED TO STAY OFF WORK FOR THE NEXT 2-4 WEEKS TO ALLOW HIS BODY TO RECUPERATE. HE UNDERSTANDS ALSO THAT HE WILL NEED TO FOLLOW CDC AND LOCAL RECOMMENDATIONS IN REGARD TO CURRENT PANDEMIC AND IS COVID-19 DIAGNOSIS. HE WILL NEED TO BE IN QUARANTINE FOR AN ADDITIONAL 7-10 DAYS OR RECOMMENDED BY THE CDC. Status at Discharge Cognitive/behavioral status at discharge: oriented Functional status at discharge: independent ambulation Overall status at discharge: patient is progressing back to baseline Time Spent with Patient Time spent: Greater than 30 minutes Exam Vital Signs (past 8 hours): - 08/14/21 05:26 Temperature 98.1 F Pulse Rate 76 Respiratory Rate 18 Blood Pressure 93/53 L Pulse Oximetry 96 Oxygen Delivery Method Room Air Oxygen Flow Rate 0 Narrative Exam Narrative: NO ACUTE DISTRESS.? APPEARS OLDER THAN STATED AGE.? POOR DENTITION.? WELL NOURISHED NOSE.? NO RUNNY NOSE NOTED.? NO TRAUMA HEAD ATRAUMATIC NORMOCEPHALIC NECK : SUPPLE WITHOUT ADENOPATHY NO CAROTID BRUITS EYE:? EOMI, PERRLA, NORMAL CONJUNCTIVA; NO JAUNDICE CHEST:? REGULAR RATE.? ? NO RUBS.? PMI IS NON DISPLACED.? NO MURMURS; NORMAL S1-S2 PULMONARY:? DECREASED BS OVER THE BASES.? MILD BIBASILAR CRACKLES NOTED; NO INCREASED DULLNESS TO PERCUSSION ABDOMEN:? SOFT.? NONTENDER.? NONDISTENDED.? BOWEL SOUNDS ARE PRESENT IN ALL 4 QUADRANTS.? NO MASS. EXTREMITIES: NO EDEMA..? NO CYANOSIS CLUBBING NOTED. NEURO:? CRANIAL NERVES 2-12 GROSSLY INTACT. NO FOCAL NEUROLOGICAL DEFICIT NOTED. MSK:? NORMAL RANGE OF MOTION FOR AGE.? NO JOINT EFFUSION. SKIN:? NORMAL FOR ETHNICITY; NO ECCHYMOSIS.? NO LESION. ? GOOD? TURGOR.; NO RASHES :? NORMAL EXTERNAL GENITALIA.? BABCOCK CATHETER IN PLACE. PSYCH :? APPROPRIATE MOOD AND AFFECT.? ALERT AWAKE ORIENTED X3 Objective Labs Result Diagrams: 08/14/21 05:50 08/14/21 05:50 Labs: Laboratory Results - last 24 hr 08/12/21 08/14/21 08/14/21 20:30 05:50 05:50 WBC 9.2 D RBC 4.28 L Hgb 12.5 L Hct 36.0 L MCV 84.1 MCH 29.3 MCHC 34.8 RDW 14.2 Plt Count 123 L Neut % (Auto) 78.0 H Lymph % (Auto) 16.3 L [place] % (Auto) 5.6 Eos % (Auto) 0.0 L Baso % (Auto) 0.1 Neut # (Auto) 7200 H Lymph # (Auto) 1500 [place] # (Auto) 500 Eos # (Auto) 0 Baso # (Auto) 0 Sodium 134 L Potassium 4.1 Chloride 110 H Carbon Dioxide 21 L BUN 17 Creatinine 0.86 Estimated GFR > 60.0 BUN/Creatinine Ratio 19.8 Glucose 99 Calcium 8.0 L Phosphorus 1.7 L D Magnesium 2.0 Total Bilirubin 0.6 AST 55 ALT 20 Alkaline Phosphatase 40 Total Creatine Kinase Total Protein 5.9 L Albumin 3.2 L Globulin 2.7 Albumin/Globulin Ratio 1.2 Urine Osmolality 672 08/14/21 05:50 WBC RBC Hgb Hct MCV MCH MCHC RDW Plt Count Neut % (Auto) Lymph % (Auto) [place] % (Auto) Eos % (Auto) Baso % (Auto) Neut # (Auto) Lymph # (Auto) [place] # (Auto) Eos # (Auto) Baso # (Auto) Sodium Potassium Chloride Carbon Dioxide BUN Creatinine Estimated GFR BUN/Creatinine Ratio Glucose Calcium Phosphorus Magnesium Total Bilirubin AST ALT Alkaline Phosphatase Total Creatine Kinase 947 H D Total Protein Albumin Globulin Albumin/Globulin Ratio Urine Osmolality [facility] Medical History (Updated 08/12/21 @ 17:16 by Yancy Michele MD) Addisons disease Hypothyroid Surgical History No pertinent past surgical history Social History household members: family Smoking Status: Never smoker alcohol intake: current Discharge Plan Discharge Plan Patient Disposition: Home Nursing Discharge Comment: PATIENT TO STAY OFF WORK FALL 14 TO 30 DAYS. EARLIEST RETURN TO WORK IS 08/29/21 Discharge orders & Medications Prescriptions: Continued levothyroxine 100 mcg Tablet 100 mcg PO DAILY Qty: 0 0RF hydrocortisone 20 mg Tablet 30 mg PO DAILY 0RF fludrocortisone 0.1 mg Tablet 0.1 mg PO DAILY 0RF Follow up/Referrals: Anam Watson MD [Primary Care Provider] - Diet/Activity/Treatments Diet: Regular Diet comment: GI SOFT Activity: TOLERATED Skin/Wound/Dressing Care Report to your healthcare provider any signs of infection, such as:: chills, fever and night sweats Discharge Data Primary Care Provider: Anam Watson Attending Provider: Esme Cadena
--- NOTE | 2021-08-14 12:17 | CM.DPC ---
DCP Discharge Home Per MD, pt is medically stable to d/c home today and no home oxygen needs as pt has been on room air and independent in room. Per RN, no concerns with pt discharge home today as he has only been getting his home meds today. Son to likely transport early afternoon. Plan: Patient to d/c home via family POV and no SW needs at this time. JUAN Cooley
[2021-08-14] MEDS: INFLUENZA VACCINE QIV 0.5 ML SYRINGE IM (12:34)
--- NOTE | 2021-08-14 12:56 | PC.NURSE ---
Pt is ready to be discharged. Pt's ride will not arrive until 1600. Due to pt being COVID positive, he will wait in the room. Pt is A&Ox4. Denies CP, Dizziness, SOB. Pt ambulates with steady gait and is taking a shower. IV has been removed and taken off telemetry.
[2021-08-19 13:59] LABS: Renin Activity 11.117 ng/mL/hr (0.167-5.380)
== END 2021-08-14 16:53 | disposition home or self-care (01) ==
LOC: ED 17:16 → ICU 08-13 03:53 → AC 08-13 12:03 → ICU 08-13 12:03
PROVIDERS: Internal Medicine Critical Care Medicine; Admitting Provider Hospitalist; Emergency Provider Emergency Medicine; PCP Family Medicine; Referring Provider Emergency Medicine; Visit Provider Hospitalist
DX: U07.1 COVID-19 (principal); R41.0 Disorientation, unspecified; E86.0 Dehydration; I95.9 Hypotension, unspecified; E87.1 Hypo-osmolality and hyponatremia; E87.2 Acidosis; R53.1 Weakness; M62.82 Rhabdomyolysis; N17.9 Acute kidney failure, unspecified; E03.9 Hypothyroidism, unspecified; E27.1 Primary adrenocortical insufficiency; Z23 Encounter for immunization
CPT/HCPCS: 36415; 36600; 51701; 70450; 70553; 71045; 71275; 80053; 80305; 80320; 81001; 82024; 82088; 82140; 82533; 82550; 82607; 82805; 82962; 83605; 83690; 83735; 83935; 84100; 84145; 84244; 84300; 84443; 85025; 87040; 87086; 87633; 87797; 90471; 90656; 93005; 93010; 96361; 96365; 96372; 96375; 99285; G0378; A9270; J0696; J1100; J1650; J1720; J1885; J2405; Q2038

== ENCOUNTER 2021-11-21 22:46 | Emergency (ER) | payer OTHER, SELFPAY ==
[2021-08-12 17:40] VITALS: BMI 25.5
[2021-11-21 22:53] VITALS: BP 99/69; PULSE 110; RESP 98; TEMP 36.4; O2SAT 24; BMI 31.9
--- NOTE | 2021-11-22 00:40 | DI.RAD.S_ITS ---
PROCEDURE: XR ACUTE ABDOMEN SERIES INDICATIONS: Abdominal pain TECHNIQUE: One view chest and two views of the abdomen were acquired. COMPARISON: None. FINDINGS: Surgical changes and devices: None. Chest: Lungs are clear. Heart size is normal. No pleural effusions. No pneumoperitoneum. Abdomen: Bowel gas pattern is normal. No suspicious calcifications. Visualized solid organ contours appear normal. Bones: No suspicious bony lesions. IMPRESSION: Chest and abdomen without acute radiographic abnormalities. Nonobstructive bowel gas pattern. Dictated by: Can Pearson M.D. on 11/22/2021 at 1:16 Approved by: Can Pearson M.D. on 11/22/2021 at 1:17
[2021-11-22 00:58] LABS: Add Manual Diff / Slide Review NO; Basophils Absolute Auto 0 /uL (0-100); Basophils Percent Auto 0.4 % (0-2); Eosinophils Absolute Auto 300 /uL (0-450); Eosinophils Percent Auto 3.3 % (2-4); Hematocrit 52.6 % (41-53); Hemoglobin 18.3 g/dL (13.5-17.5); Lymphocytes Absolute Auto 3000 /uL (1100-4500); Lymphocytes Percent Auto 32.1 % (25-40); Mean Corpuscular HGB Conc 34.9 % (30-36); Mean Corpuscular Hemoglobin 29.3 PG (26-34); Mean Corpuscular Volume 83.9 fL (80-100); Monocytes Absolute Auto 800 /uL (0-900); Monocytes Percent Auto 8.8 % (3-14); Neutrophils Absolute Auto 5200 /uL (1500-7000); Neutrophils Percent Auto 55.4 % (50-75); Platelet Count 185 X10^3/uL (150-400); Red Blood Cell Count 6.27 X10^6/uL (4.5-5.9); White Blood Cell Count 9.4 X10^3/uL (4.5-11.0)
--- NOTE | 2021-11-22 01:02 | ED.ABDPAIN ---
HPI - Abdominal Pain General Chief Complaint: Abdominal Pain Stated Complaint: SEVERE CONSTIPATION Time Seen by Provider: 11/22/21 00:38 Source: patient and family Mode of arrival: Ambulatory History of Present Illness HPI narrative: 56-year-old male nonsmoker with history of [place]'s disease presents with a chief complaint of difficulty with bowel movement for the past 3-4 days. He denies any recent change in medications or diet. He has not had any vomiting or diarrhea. He states that he strains on the toilet with very little to no bowel movement. He has no difficulty with urination. He denies any low back pain, numbness, tingling or weakness. He denies any fever or chills and has had no recent trauma. He took a single laxative early today and has not had any relief. Related Data Home Medications Medication Instructions Recorded Confirmed levothyroxine 100 mcg tablet 100 mcg PO DAILY #0 06/07/12 04/02/18 fludrocortisone 0.1 mg tablet 0.1 mg PO DAILY 04/02/18 04/02/18 hydrocortisone 20 mg tablet 30 mg PO DAILY 04/02/18 04/02/18 Allergies Allergy/AdvReac Type Severity Reaction Status Date / Time No Known Drug Allergies Allergy Verified 04/02/18 20:18 Review of Systems Review of Systems Narrative: GENERAL: Denies chills, fatigue, malaise, fever, sweats. HEENT: Denies sinus pain, ear pain, sore throat, difficulty swallowing, dizziness. RESPIRATORY: Denies dyspnea, cough, wheezing, hemoptysis, sputum. CARDIOVASCULAR: Denies chest pain, palpitations, orthopnea, edema, GASTROINTESTINAL: See HPI : Denies dysuria, frequency, incontinence, hematuria, urinary retention. MUSCULOSKELETAL: denies weakness, joint pain, or bony pain SKIN: Denies rash, skin lesions, or other NEUROLOGIC: Denies weakness, headache, numbness, change in speech, confusion, seizures, incoordination. PSYCHIATRIC: No concerning psychosocial issues. 12 point review of systems is negative except for those stated above Patient History Medical History Addisons disease Hypothyroid Surgical History No pertinent past surgical history Social History household members: family Smoking Status: Never smoker alcohol intake: current Smoking Status: Never smoker alcohol intake frequency: 0-2 drinks per day Substance Use Type: does not use Exam Narrative Exam Narrative: GENERAL: [56 year old patient appears stated age. Well-developed patient, in mild distress. HEAD: Atraumatic. Normocephalic. EYES: Pupils equal round and reactive. Extraocular motions intact. No scleral icterus. No injection or drainage. ENT: Nose without bleeding, purulent drainage. Throat without erythema, tonsillar hypertrophy or exudate. Airway patent. NECK: Trachea midline. Non tender CARDIOVASCULAR: Regular rate and rhythm without murmurs, gallops, or rubs. RESPIRATORY: Clear to auscultation. Breath sounds equal bilaterally. No wheezes, rales, or rhonchi. GASTROINTESTINAL: Abdomen soft, non-tender, nondistended. Decreased bowel sounds but present in all 4 quadrants EXTREMITIES: No edema or joint tenderness. BACK: Nontender without deformity or crepitance. No flank tenderness. NEURO: AOx3. SKIN: No rash or erythema of visible areas Initial Vital Signs Initial Vital Signs: Vital Signs Temperature 97.5 F L 11/21/21 22:53 Pulse Rate 110 H 11/21/21 22:53 Respiratory Rate 98 H 11/21/21 22:53 Blood Pressure 99/69 11/21/21 22:53 Pulse Oximetry 24 L 11/21/21 22:53 Course Orders Ordered: Discontinued Medications Bisacodyl (Bisacodyl 10 Mg Supp) 10 mg MI NOW ONE Stop: 11/22/21 02:04 Last Admin: 11/22/21 02:11 Dose: 10 mg Documented by: NAMITA Sodium Chloride (Normal Saline 0.9%) 500 mls @ 1,000 mls/hr IV BOLUS ONE Stop: 11/22/21 02:32 Last Infusion: 11/22/21 02:54 Dose: 0 mls/hr Documented by: Admin: 11/22/21 02:07 Dose: 1,000 mls/hr Documented by: NAMITA Mineral Oil (Mineral Oil 1 Each Enema) 1 each MI NOW ONE Stop: 11/22/21 04:37 Last Admin: 11/22/21 04:39 Dose: 1 each Documented by: DBROYLE Reevaluation(s) Reevaluation #1: Patient had a moderate-sized bowel movement with Dulcolax suppository but still was feeling crampy which generalized abdominal pain and requested enema prior to discharge. Reevaluation #2: Additional stool with enema, patient requesting discharge Vital Signs Vital signs: Vital Signs - 8 hr 11/21/21 22:53 11/22/21 03:33 11/22/21 05:36 Temperature 97.5 F L Pulse Rate 110 H 96 H 92 H Respiratory Rate 98 H 18 20 Blood Pressure 99/69 126/69 124/88 Pulse Oximetry 24 L 97 99 MDM - Abdominal Pain Lab Data Result diagrams: 11/22/21 00:50 11/22/21 00:50 Labs: Lab Results 11/22/21 11/22/21 11/22/21 Range/Units 00:50 00:50 03:20 WBC 9.4 (4.5-11.0) X10^3/uL RBC 6.27 H (4.5-5.9) X10^6/uL Hgb 18.3 H (13.5-17.5) g/dL Hct 52.6 (41-53) % MCV 83.9 (80-100) fL MCH 29.3 (26-34) PG MCHC 34.9 (30-36) % RDW 14.0 (11.6-14.8) % Plt Count 185 (150-400) X10^3/uL Neut % (Auto) 55.4 (50-75) % Lymph % (Auto) 32.1 (25-40) % [place] % (Auto) 8.8 (3-14) % Eos % (Auto) 3.3 (2-4) % Baso % (Auto) 0.4 (0-2) % Neut # (Auto) 5200 (9697-6543) /uL Lymph # (Auto) 3000 (1788-1916) /uL [place] # (Auto) 800 (0-900) /uL Eos # (Auto) 300 (0-450) /uL Baso # (Auto) 0 (0-100) /uL Sodium 131 L (137-145) mmol/L Potassium 5.6 H (3.4-5.1) mmol/L Chloride 93 L (98-107) mmol/L Carbon Dioxide 26 (22-32) mmol/L BUN 34 H (9-20) mg/dL Creatinine 2.45 H (0.66-1.25) mg/dL Estimated GFR 30 L (>60) mL/min BUN/Creatinine Ratio 13.9 (6-22) Glucose 107 H (70-100) mg/dL Calcium 9.5 (8.4-10.2) mg/dL Total Bilirubin 1.0 (0.2-1.3) mg/dL AST 30 (17-59) IU/L ALT 16 (<50) IU/L Alkaline Phosphatase 62 (38-126) U/L Total Protein 8.9 H (6.3-8.2) g/dL Albumin 4.9 (3.5-5.0) g/dL Globulin 4.0 (1.7-4.1) g/dL Albumin/Globulin Ratio 1.2 (1.0-2.8) Lipase 220 (23-300) U/L Ur Bilirubin Confirm Negative (Negative) Point of care testing: Urine Dip Bedside Urine Glucose Negative Bedside Urine Bilirubin + 1 Bedside Urine Ketone +/- 5 Urine Specific [place] 1.025 Bedside Urine Occult Blood - Negative Bedside Urine pH 6.0 Bedside Urine Protein +/- 15 Bedside Urine Urobilinogen - Negative Bedside Urine Nitrite - Negative Bedside Urine Leukocytes - Negative Esterase Imaging Data Abdominal x-ray: Radiologist's Impression: Chart Viewer Diagnostics Subcategory All Activity ??:?? All Time ??:?? All Subcategories Filter Laboratory Imaging Microbiology Pathology Blood Bank Tests Cardiovascular Other Specialty DATE TYPE STATUS REF RANGE/AUTHOR Hx Today 00:40 Chest/Abdomen X-ray Signed Can Pearson 08/13/21 07:36 Brain MRI Signed Jose Miguel Patterson 08/13/21 06:30 Chest X-Ray Signed Kathya Bautista 08/12/21 17:33 Telemetry Strips ? 08/12/21 15:00 Chest CTA Signed Gilbert Perez 08/12/21 13:[address] Signed Can Pearson 08/12/21 12:10 Chest X-Ray Signed Hero Santana 04/02/18 17:38 Telemetry Strips ? 04/02/18 15:50 Chest X-Ray Signed Sandor Love Jeffrey ED 56, M?1965 MRN#? [id number] REG ER,?Main ED??R02?? 172.72cm 95.254kg BMI: 31.9kg/m? Abdominal Pain Acc#? [id number] Resus Status Not Ordered Hx Avail Special Indicators No Data to Display Home Meds Not Confirmed Prescription Monitoring Program MEDICATIONS (INSTRUCTIONS) LAST TAKEN Active ??fludrocortisone ??0.1 mgPODAILY ??hydrocortisone ??30 mgPODAILY ??levothyroxine ??100 mcgPODAILY#0 Allergies No Known Drug Allergies Problems External Data Available ? ONSET COVID-19 Add[place]ian crisis Acute kidney injury Constipation Fever of unknown origin Gastroenteritis [place]'s disease Hypothyroidism Vital Signs Today 05:36 BP 124/88? Pulse 92?H Resp 20? O2 Sat 99? Delivery Room Air? Diagnostics Reports Jacob Mcdonough??56??M??1965 ? Allergy/Adv: No Known Drug Allergies (More??) Close Chest/Abdomen X-ray (Signed) Can Pearson - 11/22/21 Brain MRI (Signed) Jose Miguel Patterson - 08/13/21 Chest X-Ray (Signed) Kathya Bautista - 08/13/21 Telemetry Strips 08/12/21 Chest CTA (Signed) Gilbert Perez - 08/12/[address] (Signed) Can Pearson - 08/12/21 Chest X-Ray (Signed) MaxFelicianoHero - 08/12/21 Telemetry Strips 04/02/18 Chest X-Ray (Signed) Sandor Love - 04/02/18 Launch?[place] [address] XRay Report Signed Patient: Jacob Mcdonough MR#: [id number] : 1965 Acct:[id number] Age/Sex: 56 / M Date of Service: 11/22/21 Loc: ED Accession Number: [id number] ?? Procedure: XR acute abdomen series Ordering Provider: Miguel Woody D.O. PROCEDURE:? XR ACUTE ABDOMEN SERIES ? INDICATIONS:? Abdominal pain ? TECHNIQUE:? One view chest and two views of the abdomen were acquired.? ? COMPARISON:? None. ? FINDINGS:? ? Surgical changes and devices:? None.? ? Chest:? Lungs are clear.? Heart size is normal.? No pleural effusions.? No pneumoperitoneum.? ? Abdomen:? Bowel gas pattern is normal.? No suspicious calcifications.? Visualized solid organ contours appear normal.? ? Bones:? No suspicious bony lesions.? ? IMPRESSION:? Chest and abdomen without acute radiographic abnormalities.? Nonobstructive bowel gas pattern. ? ? Dictated by: Can Pearson M.D. on 11/22/2021 at 1:16 ? ? Approved by: Can Pearson M.D. on 11/22/2021 at 1:17 ? Chart Viewer Diagnostics Subcategory All Activity ??:?? All Time ??:?? All Subcategories Filter Laboratory Imaging Microbiology Pathology Blood Bank Tests Cardiovascular Other Specialty DATE TYPE STATUS REF RANGE/AUTHOR Hx Today 00:40 Chest/Abdomen X-ray Signed Can Pearson 08/13/21 07:36 Brain MRI Signed Jose Miguel Patterson 08/13/21 06:30 Chest X-Ray Signed Kathya Bautista 08/12/21 17:33 Telemetry Strips ? 08/12/21 15:00 Chest CTA Signed Gilbert Perez 08/12/21 13:[address] Signed Can Pearson 08/12/21 12:10 Chest X-Ray Signed Hero Santana 04/02/18 17:38 Telemetry Strips ? 04/02/18 15:50 Chest X-Ray Signed Sandor Love Jeffrey H ED 56, M?1965 MRN#? [id number] REG ER,?Main ED??R02?? 172.72cm 95.254kg BMI: 31.9kg/m? Abdominal Pain Acc#? [id number] Resus Status Not Ordered Hx Avail Special Indicators No Data to Display Home Meds Not Confirmed Prescription Monitoring Program MEDICATIONS (INSTRUCTIONS) LAST TAKEN Active ??fludrocortisone ??0.1 mgPODAILY ??hydrocortisone ??30 mgPODAILY ??levothyroxine ??100 mcgPODAILY#0 Allergies No Known Drug Allergies Problems External Data Available ? ONSET COVID-19 [place]ian crisis Acute kidney injury Constipation Fever of unknown origin Gastroenteritis [place]'s disease Hypothyroidism Vital Signs Today 05:36 BP 124/88? Pulse 92?H Resp 20? O2 Sat 99? Delivery Room Air? Diagnostics Reports Jacob Mcdonough??56??M??1965 ? Allergy/Adv: No Known Drug Allergies (More??) Close Chest/Abdomen X-ray (Signed) Can Pearson - 11/22/21 Brain MRI (Signed) Jose Miguel Patterson - 08/13/21 Chest X-Ray (Signed) Kathya Bautista - 08/13/21 Telemetry Strips 08/12/21 Chest CTA (Signed) Gilbert Perez - 08/12/[address] (Signed) Can Pearson - 08/12/21 Chest X-Ray (Signed) Hero Santana - 08/12/21 Telemetry Strips 04/02/18 Chest X-Ray (Signed) Sandor Love - 04/02/18 Launch?[place] [address] XRay Report Signed Patient: Jacob Mcdonough MR#: [id number] : 1965 Acct:[id number] Age/Sex: 56 / M Date of Service: 11/22/21 Loc: ED Accession Number: [id number] ?? Procedure: XR acute abdomen series Ordering Provider: Miguel Woody D.O. PROCEDURE:? XR ACUTE ABDOMEN SERIES ? INDICATIONS:? Abdominal pain ? TECHNIQUE:? One view chest and two views of the abdomen were acquired.? ? COMPARISON:? None. ? FINDINGS:? ? Surgical changes and devices:? None.? ? Chest:? Lungs are clear.? Heart size is normal.? No pleural effusions.? No pneumoperitoneum.? ? Abdomen:? Bowel gas pattern is normal.? No suspicious calcifications.? Visualized solid organ contours appear normal.? ? Bones:? No suspicious bony lesions.? ? IMPRESSION:? Chest and abdomen without acute radiographic abnormalities.? Nonobstructive bowel gas pattern. ? ? Dictated by: Can Pearson M.D. on 11/22/2021 at 1:16 ? ? Approved by: Can Pearson M.D. on 11/22/2021 at 1:17 ? MDM Narrative Medical decision making narrative: Patient with crampy abdominal pain and decreased bowel movements for the past few days has an x-ray demonstrating no bowel obstruction. Patient has soft abdomen without significant findings and reassuring labs. He has improvement in symptoms after Dulcolax suppository and enema. Patient given extensive dietary instructions which she reports an understanding of. He is in agreement with an understands the diagnosis and plan, return precautions discussed Discharge Plan Departure Patient Disposition: Home Clinical Impression: Constipation Instructions: DI for Constipation Activity Restrictions/Additional Instructions: *You have been diagnosed with [ abdominal pain due to constipation ] *What to do: *Take over the counter medications as directed: 1. Metamucil - is a bulk forming laxative and adds fiber 2. Colace - softens your stool 3. Dulcolax suppository - stimulates your bowels *Follow up with your primary care provider in 2-3 days, call for appointment *Return to ER if you should have any new, worsening or concerning symptoms *Drink plenty of water and eat foods high in fiber *Stay as active as you can as this helps move your bowels as well Prescriptions: No Action levothyroxine 100 mcg Tablet 100 mcg PO DAILY Qty: 0 0RF hydrocortisone 20 mg Tablet 30 mg PO DAILY 0RF fludrocortisone 0.1 mg Tablet 0.1 mg PO DAILY 0RF Referrals: Anam Watson MD [Primary Care Provider] -
[2021-11-22 01:09] LABS: Alanine Aminotransferase 16 IU/L (<50); Albumin 4.9 g/dL (3.5-5.0); Albumin Globulin Ratio 1.2 (1.0-2.8); Alkaline Phosphatase 62 U/L (38-126); Aspartate Aminotransferase 30 IU/L (17-59); BUN Creatinine Ratio 13.9 (6-22); Blood Urea Nitrogen 34 mg/dL (9-20); Calcium 9.5 mg/dL (8.4-10.2); Carbon Dioxide 26 mmol/L (22-32); Chloride 93 mmol/L (98-107); Estimated Glomerular Filt Rate 30 mL/min (>60); Glucose 107 mg/dL (70-100); HEMOLYSIS < 15 (0-50); Lipase 220 U/L (23-300); Potassium 5.6 mmol/L (3.4-5.1); Sodium 131 mmol/L (137-145); Total Protein 8.9 g/dL (6.3-8.2)
[2021-11-22] MEDS: SODIUM CHLORIDE 0.9% 500 ML 1000 ML IV (02:07)
[2021-11-22] MEDS: BISACODYL 10 MG SUPP PR (02:11)
[2021-11-22 03:33] VITALS: BP 126/69; PULSE 96; RESP 18; O2SAT 97
[2021-11-22 03:41] LABS: Ictotest Urine Negative (Negative)
[2021-11-22] MEDS: MINERAL OIL 1 EACH ENEMA PR (04:39)
[2021-11-22 05:36] VITALS: BP 124/88; PULSE 92; RESP 20; O2SAT 99
== END 2021-11-22 05:59 | disposition home or self-care (01) ==
PROVIDERS: Emergency Provider Emergency Medicine; PCP Family Medicine
DX: K59.00 Constipation, unspecified (principal)
CPT/HCPCS: 36415; 74022; 80053; 81003; 83690; 85025; 96360; 99284

== ENCOUNTER 2024-06-25 00:57 | Emergency (ER) | payer OTHER, SELFPAY ==
[2021-08-12 17:40] VITALS: BMI 25.5
[2024-06-25] VITALS (17 sets, daily range): BP systolic 94–118; BP diastolic 53–70; PULSE 102–134; RESP 19–37; TEMP 36.2; O2SAT 90–98; BMI 27.3
--- NOTE | 2024-06-25 01:07 | DI.RAD.S_ITS ---
PROCEDURE: XR CHEST 1V INDICATIONS: syncope, head trauma TECHNIQUE: One view of the chest was acquired. COMPARISON: [facility], CR, XR CHEST 1V, 08/12/2021, 12:20. [facility], CT, CT HEAD/BRAIN WO CON, 06/25/2024, 1:16. [facility], CR, XR CHEST 1V, 08/13/2021, 5:25. FINDINGS: Surgical changes and devices: None. Lungs and pleura: Lungs are clear. No pleural effusions or pneumothorax. Mediastinum: Mediastinal contours appear normal. Heart size is normal. Bones and chest wall: No suspicious bony lesions. Overlying soft tissues appear unremarkable. IMPRESSION: Unremarkable portable chest. Dictated by: Jose Miguel Patterson M.D. on 06/25/2024 at 0:40 Approved by: Jose Miguel Patterson M.D. on 06/25/2024 at 0:41
--- NOTE | 2024-06-25 01:08 | DI.CT.S_ITS ---
PROCEDURE: CT HEAD/BRAIN WO CON INDICATIONS: syncope, TECHNIQUE: Noncontrast 4.5 mm thick angled axial sections acquired from the foramen magnum to the vertex, with coronal and sagittal reformats. For radiation dose reduction, the following was used: automated exposure control, adjustment of mA and/or kV according to patient size. COMPARISON: [facility], CR, XR CHEST 1V, 06/25/2024, 1:07. [facility], CT, CT HEAD/BRAIN WO CON, 08/12/2021, 13:42. (Additional prior imaging is not available for review from the archive at the time of this dictation.) FINDINGS: Image quality: Mild streak artifact can be seen through the skull base. CSF spaces: Basal cisterns are patent. No extra-axial fluid collections. Ventricles are normal in size and shape. Brain: No midline shift. No intracranial masses or hemorrhage. [place]-white matter interface is normal. Skull and face: Calvarium and visualized facial bones are intact, without suspicious lesions. Sinuses: There is a mucous retention cyst within the right maxillary sinus. Visualized sinuses and mastoids are otherwise clear. IMPRESSION: No acute intracranial hemorrhage is seen. No acute intracranial pathology. To the limits of this noncontrast study, no findings of intracranial masses or mass effect can be seen. Dictated by: Jose Miguel Patterson M.D. on 06/25/2024 at 0:41 Approved by: Jose Miguel Patterson M.D. on 06/25/2024 at 0:43
--- NOTE | 2024-06-25 01:09 | ED.GENADULT ---
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 Patient was somewhat a poor historian. He says that his César's disease sometimes ?gets away from him?, but can't state specific events leading to this flare up. He says he has been feeling somewhat poorly with fatigue and nausea. Reports 2-3 episodes of vomiting. He states that usually this happens when he has been taking his medicines, but he reports that he has been taking all his medications as prescribed and has not missed any doses. He does not follow with endocrinology - his meds are prescirbed by his PCP Dr. Alvarado in [place] [employer] Home Medications Medication Instructions Recorded Confirmed levothyroxine 100 mcg tablet 100 mcg PO DAILY ##0 06/07/12 04/02/18 fludrocortisone 0.1 mg tablet 0.1 mg PO DAILY 04/02/18 04/02/18 hydrocortisone 20 mg tablet 30 mg PO DAILY 04/02/18 04/02/18 Allergies Allergy/AdvReac Type Severity Reaction Status Date / Time No Known Drug Allergies Allergy Verified 04/02/18 20:18 Patient History Medical History Hypothyroid Addisons disease Surgical History No pertinent past surgical history Social History household members: family Smoking Status: Never smoker alcohol intake: current Smoking Status: Never smoker alcohol intake frequency: 0-2 drinks per day Substance Use Type: does not use Exam Initial Vital Signs Initial Vital Signs: Vital Signs Temperature 97.2 F L 06/25/24 01:06 Pulse Rate 119 H 06/25/24 01:06 Respiratory Rate 20 06/25/24 01:06 Blood Pressure 113/69 06/25/24 01:06 Pulse Oximetry 97 06/25/24 01:06 Oxygen Delivery Method Room Air 06/25/24 01:06 Oxygen Flow Rate 97.2 06/25/24 01:06 Const: Awake, alert, ill-appearing, appears older than stated age, nontoxic Cardiac: Tachycardia, regular rhythm RESP: unlabored, clear bilaterally, no wheezing GI: Soft, generalized tenderness to deep palpation without rebound or guarding Skin: Warm, Dry, intact, no rashes Neuro: AO x3, CN II-XII grossly intact, moves all extremities Course Orders Ordered: ED Orders 06/25/24 01:07 Chest [XR chest 1V] Stat EKG-12 Lead Stat 06/25/24 01:08 CT head/brain wo con Stat 06/25/24 01:10 CBC Auto Diff [Complete Blood Count AUTO DIFF] Stat CMP [Comprehensive Metabolic Panel] Stat Cortisol Random Stat Lactate (Lactic Acid) Stat Lipase Stat PT [Prothrombin Time INR] Stat Respiratory Panel (Film Array) Stat TSH [Thyroid Stimulating Hormone] Stat Troponin & CK Cardiac Panel Stat 06/25/24 01:32 ABG [Arterial Blood Gas] STAT 06/25/24 01:52 CT abdomen pelvis wo con Stat 06/25/24 06:16 Urine Microscopic Stat Sodium Chloride (Normal Saline 0.9%) 1,000 mls @ 100 mls/hr IV CONT MANUEL Discontinued Medications Dexamethasone (Dexamethasone 10 Mg/Ml Vial) 10 mg IV NOW ONE Stop: 06/25/24 01:07 Last Admin: 06/25/24 01:25 Dose: 10 mg Documented By: LAVON Droperidol (Droperidol 5 Mg/2 Ml Vial) 2.5 mg IV NOW ONE Stop: 06/25/24 01:53 Last Admin: 06/25/24 01:57 Dose: 2.5 mg Documented By: Sodium Chloride (Normal Saline 0.9%) 1,000 mls @ 1,000 mls/hr IV BOLUS ONE Stop: 06/25/24 02:05 Last Infusion: 06/25/24 03:19 Dose: Infused Documented By: Admin: 06/25/24 01:25 Dose: 1,000 mls/hr Documented By: LAVON Ceftriaxone Sodium 2,000 mg/ (Sodium Chloride) 100 mls @ 200 mls/hr IV NOW ONE Stop: 06/25/24 01:27 Last Infusion: 06/25/24 02:45 Dose: Infused Documented By: Admin: 06/25/24 01:37 Dose: 200 mls/hr Documented By: LAVON Sodium Chloride (Normal Saline 0.9%) 1,000 mls @ 1,000 mls/hr IV BOLUS ONE Stop: 06/25/24 02:28 Last Infusion: 06/25/24 03:20 Dose: Infused Documented By: Admin: 06/25/24 01:39 Dose: 1,000 mls/hr Documented By: LAVON Metronidazole (Flagyl) 500 mg in 100 mls @ 100 mls/hr IV NOW ONE Stop: 06/25/24 04:17 Last Infusion: 06/25/24 04:18 Dose: Infused Documented By: Admin: 06/25/24 03:24 Dose: 100 mls/hr Documented By: LAVON Ondansetron HCl (Ondansetron 4 Mg/2 Ml Inj) 4 mg IV NOW ONE Stop: 06/25/24 01:07 Last Admin: 06/25/24 01:25 Dose: 4 mg Documented By: LAVON Vital Signs Vital signs: Vital Signs - 8 hr 06/25/24 01:06 06/25/24 01:30 06/25/24 02:15 Temperature 97.2 F L Pulse Rate 119 H 115 H 134 H Respiratory Rate 20 20 37 H Blood Pressure 113/69 107/67 Pulse Oximetry 97 91 91 Oxygen Delivery Method Room Air Room Air Room Air Oxygen Flow Rate 97.2 06/25/24 03:00 06/25/24 03:07 06/25/24 03:11 Temperature Pulse Rate 113 H 111 H Respiratory Rate 24 23 Blood Pressure 94/53 L Pulse Oximetry 91 91 Oxygen Delivery Method Room Air Oxygen Flow Rate 06/25/24 03:11 06/25/24 03:15 06/25/24 03:30 Temperature Pulse Rate 110 H Respiratory Rate 22 Blood Pressure 94/53 L 101/59 L Pulse Oximetry 90 L Oxygen Delivery Method Oxygen Flow Rate 06/25/24 03:30 06/25/24 04:00 06/25/24 04:00 Temperature Pulse Rate 107 H 111 H Respiratory Rate 21 21 Blood Pressure 109/60 Pulse Oximetry 91 90 L Oxygen Delivery Method Nasal Cannula Oxygen Flow Rate 1 06/25/24 04:30 06/25/24 04:33 06/25/24 04:35 Temperature Pulse Rate 106 H 111 H Respiratory Rate 19 23 Blood Pressure 102/64 Pulse Oximetry 95 96 Oxygen Delivery Method Nasal Cannula Nasal Cannula Oxygen Flow Rate 2 2 06/25/24 04:35 06/25/24 05:00 06/25/24 05:00 Temperature Pulse Rate 114 H 110 H Respiratory Rate 25 H 21 Blood Pressure 109/70 Pulse Oximetry Oxygen Delivery Method Oxygen Flow Rate 06/25/24 05:30 06/25/24 06:00 06/25/24 06:00 Temperature Pulse Rate 107 H 103 H Respiratory Rate 22 21 Blood Pressure 102/69 Pulse Oximetry Oxygen Delivery Method Oxygen Flow Rate Medical Decision Making Lab Data 06/25/24 01:10 06/25/24 01:10 Labs: Lab Results 06/25/24 06/25/24 06/25/24 Range/Units 01:10 02:42 03:11 WBC 24.4 H (4.5-11.0) X10^3/uL RBC 5.83 (4.5-5.9) X10^6/uL Hgb 17.4 (13.5-17.5) g/dL Hct 50.0 (41-53) % MCV 85.8 (80-100) fL MCH 29.8 (26-34) PG MCHC 34.7 (30-36) % RDW 13.7 (11.6-14.8) % Plt Count 246 (150-400) X10^3/uL Neut % (Auto) 75.8 H (50-75) % Lymph % (Auto) 17.2 L (25-40) % Davis % (Auto) 6.5 (3-14) % Eos % (Auto) 0.3 L (2-4) % Baso % (Auto) 0.2 (0-2) % Neut # (Auto) 62901 H (2122-7272) /uL Lymph # (Auto) 4200 (1452-7964) /uL Davis # (Auto) 1600 H (0-900) /uL Eos # (Auto) 100 (0-450) /uL Baso # (Auto) 0 (0-100) /uL PT 16.8 H (9.4-12.5) SECONDS INR 1.5 H (0.9-1.3) ABG Sample Site Right radial ABG pH 7.40 (7.35-7.45) ABG pCO2 25.2 L (35-45) mmHg ABG pO2 83 (80-100) mmHg ABG HCO3 16 L (23-27) mmol/L ABG Total CO2 15 L (23-27) mmol/L ABG O2 Saturation 97 (95-100) % ABG Base Excess -7.5 L (-2-3) mmol/L Adrien Test Positive FiO2 % 21 % % Sodium 130 L (137-145) mmol/L Potassium 4.2 (3.4-5.1) mmol/L Chloride 90 L (98-107) mmol/L Carbon Dioxide 16 L (22-32) mmol/L BUN 25 H (9-20) mg/dL Creatinine 3.12 H (0.66-1.25) mg/dL Estimated GFR 22 L (>60) mL/min BUN/Creatinine Ratio 8.0 (6-22) Glucose 98 (70-100) mg/dL Lactate 5.0 H* 2.6 H (0.7-2.1) mmol/L Calcium 8.4 (8.4-10.2) mg/dL Total Bilirubin 2.3 H (0.2-1.3) mg/dL AST 52 (17-59) IU/L ALT 33 (<50) IU/L Alkaline Phosphatase 93 (38-126) U/L Total Creatine Kinase 597 H (55-170) U/L Troponin I < 0.012 (0.01-0.034) ng/mL Total Protein 8.1 (6.3-8.2) g/dL Albumin 4.5 (3.5-5.0) g/dL Globulin 3.6 (1.7-4.1) g/dL Albumin/Globulin Ratio 1.3 (1.0-2.8) Lipase 91 (23-300) U/L TSH 7.61 H (0.47-4.68) uIU/mL Random Cortisol 8.27 ug/dL Chlamy pneumoniae PCR Not detected (Not Detect) Adenovirus (PCR) Not detected (Not Detect) B. pertussis DNA (PCR) Not detected (Not Detect) B.parapertussis DNA PCR Not detected (Not Detecte) Coronavirus OC43 (PCR) Not detected (Not Detect) Coronavirus HKU1 (PCR) Not detected (Not Detect) Coronavirus 229E (PCR) Not detected (Not Detect) SARS-CoV-2 (PCR) Not detected (Not Detecte) Coronavirus NL63 (PCR) Not detected (Not Detect) Human Metapneumovir PCR Not detected (Not Detect) Influenza Type A (PCR) Not detected (Not Detect) Influenza Type B (PCR) Not detected (Not Detect) M. pneumoniae (PCR) Not detected (Not Detect) Parainfluenza 1 (PCR) Not detected (Not Detect) Parainfluenza 2 (PCR) Not detected (Not Detect) Parainfluenza 3 (PCR) Not detected (Not Detect) Parainfluenza 4 (PCR) Not detected (Not Detect) RSV (PCR) Not detected (Not Detect) Entero/Rhino (PCR) Not detected (Not Detect) Urine Dip Bedside Urine Glucose Negative Bedside Urine Bilirubin - Negative Bedside Urine Ketone ++ 40 Urine Specific Patten 1.030 Bedside Urine Occult Blood + Bedside Urine pH 5.5 Bedside Urine Protein + 30 Bedside Urine Urobilinogen - Negative Bedside Urine Nitrite - Negative Bedside Urine Leukocytes +/- 15 Esterase Point of care testing: Urine Dip Bedside Urine Glucose Negative Bedside Urine Bilirubin - Negative Bedside Urine Ketone ++ 40 Urine Specific Patten 1.030 Bedside Urine Occult Blood + Bedside Urine pH 5.5 Bedside Urine Protein + 30 Bedside Urine Urobilinogen - Negative Bedside Urine Nitrite - Negative Bedside Urine Leukocytes +/- 15 Esterase MDM Narrative Medical decision making narrative: Patient presenting for reports of Comal's flare-up despite taking meds. No specific symptoms other than fatigue and some nausea. IV fluids, decadron, labs ordered. During assessment a linear scab noted on the crown of the patients head and he said he passed out in his bed yesterday for no known reason. XR chest and CT brain added for assessment. Due to tachycardia on arrival as well as history of chronic steroid use blood cultures, protocol, lactic acid, IV fluids, laboratory work ordered. Laboratory work shows numerous abnormalities. WBC count 24, hemoglobin 17.4, platelets 246, sodium 130, potassium 4.2, CO2 16, creatinine 3.12, lactic acid 5.0, T bili 2.3, AST 52, ALT 33, albumin 4.5. Anion gap 24. Additional L of IV fluids ordered as well as empiric broad-spectrum antibiotics, although no obvious source of infection identified at this time. Patient asked about his kidney function and if he was ever been told to see a kidney doctor. He states that he was never been told if he had kidney problems or not, but also states that he was not had labs drawn in over 2 years. This creatinine may be chronic in nature. Patient continues to vomit after Zofran. With leukocytosis and abdominal pain with persistent vomiting CT of the abdomen and pelvis will be ordered, however noncontrast due to elevated creatinine. ABG reviewed: 7.397/25/83/15.5 O2 96% on RA. Likely metabolic acidosis with respiratory compensation. CT scan shows acute appendicitis with localized perforation. Possible etiology causing patient's Comal's crisis. Discussed case with lead injection mold technician surgeon Dr. Caicedo, who stated that with patient's kidney disease and Comal's crisis ongoing along with the appendicitis he should be transferred to [place] with nephrology, especially in case kidney function worsens and dialysis is needed. Patient was already received Rocephin, Flagyl ordered for additional coverage. Patient to be transferred for higher level of care. He is in agreement with transfer at this time. 0420 - Spoke with [facility] Alarcon at [facility], who accepts patient for transfer 0650 - [facility] to transport patient. Critical Care Time Critical Care Time Critical Care Time: Yes Total Critical Care Time: 48 Attestation: César's crisis with concurrent acute appendicitis Discharge Plan Departure Patient Disposition: [facility] Clinical Impression: Addisonian crisis, Metabolic acidosis, Creatinine elevation Acute appendicitis Qualifiers: Acute appendicitis type: with localized peritonitis Appendicitis gangrene presence: unspecified whether gangrene present Appendicitis perforation presence: unspecified whether perforation present Appendicitis abscess presence: unspecified whether abscess present Qualified Code(s): K35.30 - Acute appendicitis with localized peritonitis, without perforation or gangrene Prescriptions: No Action levothyroxine 100 mcg Tablet 100 mcg PO DAILY Qty: 0 hydrocortisone 20 mg Tablet 30 mg PO DAILY fludrocortisone 0.1 mg Tablet 0.1 mg PO DAILY Referrals: Anam Watson MD [Primary Care Provider] -
[2024-06-25 01:17] LABS: Add Manual Diff / Slide Review NO; Basophils Absolute Auto 0 /uL (0-100); Basophils Percent Auto 0.2 % (0-2); Eosinophils Absolute Auto 100 /uL (0-450); Eosinophils Percent Auto 0.3 % (2-4); Hemoglobin 17.4 g/dL (13.5-17.5); Lymphocytes Absolute Auto 4200 /uL (1100-4500); Lymphocytes Percent Auto 17.2 % (25-40); Mean Corpuscular HGB Conc 34.7 % (30-36); Mean Corpuscular Hemoglobin 29.8 PG (26-34); Mean Corpuscular Volume 85.8 fL (80-100); Monocytes Absolute Auto 1600 /uL (0-900); Monocytes Percent Auto 6.5 % (3-14); Neutrophils Absolute Auto 18500 /uL (1500-7000); Neutrophils Percent Auto 75.8 % (50-75); Platelet Count 246 X10^3/uL (150-400); Red Blood Cell Count 5.83 X10^6/uL (4.5-5.9); Red Cell Distribution Width 13.7 % (11.6-14.8); White Blood Cell Count 24.4 X10^3/uL (4.5-11.0)
[2024-06-25] MEDS: ONDANSETRON 4 MG/2 ML INJ IV (01:25)
[2024-06-25] MEDS: SODIUM CHLORIDE 0.9% 1,000 ML 1000 ML IV ×2 (01:25→01:39)
[2024-06-25] MEDS: DEXAMETHASONE 10 MG/ML VIAL IV (01:25)
[2024-06-25 01:28] LABS: Alanine Aminotransferase 33 IU/L (<50); Albumin 4.5 g/dL (3.5-5.0); Albumin Globulin Ratio 1.3 (1.0-2.8); Alkaline Phosphatase 93 U/L (38-126); Aspartate Aminotransferase 52 IU/L (17-59); Bilirubin Total 2.3 mg/dL (0.2-1.3); Blood Urea Nitrogen 25 mg/dL (9-20); Calcium 8.4 mg/dL (8.4-10.2); Carbon Dioxide 16 mmol/L (22-32); Chloride 90 mmol/L (98-107); Estimated Glomerular Filt Rate 22 mL/min (>60); Globulin 3.6 g/dL (1.7-4.1); Glucose 98 mg/dL (70-100); HEMOLYSIS < 15 (0-50); Potassium 4.2 mmol/L (3.4-5.1); Sodium 130 mmol/L (137-145); Total Protein 8.1 g/dL (6.3-8.2)
--- NOTE | 2024-06-25 01:29 | EKG_ITS ---
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
[2024-06-25 01:35] LABS: INR 1.5 (0.9-1.3); Prothrombin Time 16.8 SECONDS (9.4-12.5)
[2024-06-25] MEDS: cefTRIAXone 2,000 MG in SODIUM CHLORIDE 0.9% 100 ML 200 MG IV (01:37)
[2024-06-25 01:41] LABS: Creatine Kinase 597 U/L (55-170)
--- NOTE | 2024-06-25 01:52 | DI.CT.S_ITS ---
PROCEDURE: CT ABDOMEN PELVIS WO CON INDICATIONS: N/V/GEN ABD PAIN, OMAIRA'S CRISIS TECHNIQUE: Axial sections were acquired from the lung bases to the pubic symphysis. Coronal and sagittal reformats were performed. For radiation dose reduction, the following was used: automated exposure control, adjustment of mA and/or kV according to patient size. COMPARISON: None. FINDINGS: Lower thorax: The lung bases are clear. Heart size normal. No hiatal hernia. Liver: Normal in size and attenuation. No contour deformity present. Biliary system: No calcified cholelithiasis or pericholecystic inflammation. No intra or extrahepatic bile duct dilatation. Pancreas: Unremarkable without mass or inflammation evident. Spleen: Normal in size and density. Adrenals: Normal morphology and density. Reproductive system: Unremarkable as visualized. Urinary system: Normal renal size and attenuation. No renal calculi, hydronephrosis, or solid mass present. Urinary bladder unremarkable. Gastrointestinal system: The bowel is unremarkable without evidence of bowel obstruction or inflammation. The stomach appears unremarkable. Appendix: The appendix dilated, inflamed, contains a 15 mm appendicolith at its base and a 2nd appendicolith within the midbody measuring 6 mm. The appendix diameter measures up to 1 cm. Several foci of adjacent extraluminal air is present within vigorous surrounding periappendiceal inflammatory edema. No evidence of organized abscess Peritoneal spaces: No mesenteric or retroperitoneal adenopathy. No free air. No free fluid. Vasculature: The IVC, aorta and iliac vasculature are unremarkable. Abdominal wall: Abdominal wall intact without evidence of ventral or inguinal hernias. Musculoskeletal: Normal bone mineralization. No acute fractures. IMPRESSION: Acute appendicitis with local microperforations but no organized abscess. Note: This final report is concordant with the preliminary after-hours interpretation by Dr. Luna Cutler MD at [facility] Approved by: Ricardo West M.D. on 06/25/2024 at 9:20
[2024-06-25 01:54] LABS: Troponin I < 0.012 ng/mL (0.01-0.034)
[2024-06-25] MEDS: DROPERIDOL 5 MG/2 ML VIAL 2.5 MG IV (01:57)
[2024-06-25 02:22] LABS: Adenovirus Not Detected (Not Detect); B. parapertussis Not Detected (Not Detecte); Bordetella pertussis Not Detected (Not Detect); Chlamydophila pneumoniae Not Detected (Not Detect); Coronavirus 229E Not Detected (Not Detect); Coronavirus HKU1 Not Detected (Not Detect); Coronavirus NL 63 Not Detected (Not Detect); Coronavirus OC43 Not Detected (Not Detect); Human Metapneumovirus Not Detected (Not Detect); Human Rhinovirus/Enterovirus Not Detected (Not Detect); Influenza A Not Detected (Not Detect); Influenza B Not Detected (Not Detect); Mycoplasma pneumoniae Not Detected (Not Detect); Parainfluenza Virus 1 Not Detected (Not Detect); Parainfluenza Virus 2 Not Detected (Not Detect); Parainfluenza Virus 3 Not Detected (Not Detect); Parainfluenza Virus 4 Not Detected (Not Detect); Respiratory Syncytial Virus Not Detected (Not Detect); SARS- CoV-2 Not Detected (Not Detecte)
[2024-06-25 02:28] LABS: Cortisol Random 8.27 ug/dL; Thyroid Stimulating Hormone 7.61 uIU/mL (0.47-4.68)
[2024-06-25 02:33] LABS: Lipase 91 U/L (23-300)
[2024-06-25 02:45] LABS: Allen Test for ABG Passed? Positive; Base Excess ABG -7.5 mmol/L (-2-3); Blood Gas Collection Site Right Radial; HCO3 ABG 16 mmol/L (23-27); Oxygen Saturation ABG 97 % (95-100); PCO2 ABG 25.2 mmHg (35-45); PO2 ABG 83 mmHg (80-100); TCO2 ABG 15 mmol/L (23-27)
[2024-06-25 02:50] LABS: Reflexed Lactate in 2 Hours Y
[2024-06-25] MEDS: metroNIDAZOLE 500 MG/100 ML PIGGYBACK 100 MG IV (03:24)
[2024-06-25 03:33] LABS: Lactate 2HR (Lactic Acid Rflx) 2.6 mmol/L (0.7-2.1)
[2024-06-25 06:53] LABS: RBC Urine 0-1/HPF (0-5/HPF); Urine Volume 10mL (spun); WBC Urine None Seen (0-5/HPF)
[2024-06-25 06:54] LABS: Amorphous Sediment Urine 1+; Bacteria Urine None Seen; Culture Indicated Urine Cult Not Indicated; Squamous Epithelial Cell Urine 1-5 /HPF (0-5/HPF)
[2024-06-25] MEDS: SODIUM CHLORIDE 0.9% 1,000 ML 100 ML IV (06:59)
--- NOTE | 2024-06-25 07:02 | PC.NURSE ---
Call to son Miguel for update. Gave him pt room number at [facility] 4th floor room [facility]
== END 2024-06-25 07:12 | disposition short-term general hospital (02) ==
PROVIDERS: Emergency Provider Emergency Medicine; PCP Family Medicine
DX: K35.30 Acute appendicitis with localized peritonitis, without perforation or gangrene (principal); E87.21 Acute metabolic acidosis; E27.2 Addisonian crisis; R79.89 Other specified abnormal findings of blood chemistry; Z11.52 Encounter for screening for COVID-19; R55 Syncope and collapse; S09.90XA Unspecified injury of head, initial encounter; R00.0 Tachycardia, unspecified
CPT/HCPCS: 36415; 36600; 70450; 71045; 74176; 80053; 81003; 81015; 82533; 82550; 82805; 83605; 83690; 84443; 84484; 85025; 85610; 87633; 93005; 96365; 96367; 96375; 99285; 99291; J0696; J1100; J1790; J2405

== ENCOUNTER 2024-10-08 20:13 | Inpatient (IN) | payer OTHER, SELFPAY ==
[2021-08-12 17:40] VITALS: BMI 25.5
[2024-10-08] VITALS (12 sets, daily range): BP systolic 97–113; BP diastolic 56–67; PULSE 52–116; RESP 21–42; TEMP 36.4–37.3; O2SAT 91–100; BMI 27.3
--- NOTE | 2024-10-08 20:34 | EKG_ITS ---
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
--- NOTE | 2024-10-08 20:34 | DI.RAD.S_ITS ---
PROCEDURE: XR CHEST 1V INDICATIONS: Shortness of breath TECHNIQUE: One view of the chest was acquired. COMPARISON: [facility], , XR CHEST 1V, 06/25/2024, 1:07. FINDINGS: Surgical changes and devices: None. Lungs and pleura: Lungs are clear. No pleural effusions or pneumothorax. Mediastinum: Mediastinal contours appear normal. Heart size is normal. Bones and chest wall: No suspicious bony lesions. Overlying soft tissues appear unremarkable. IMPRESSION: No acute cardiopulmonary pathology. Dictated by: Gilbert Perez M.D. on 10/08/2024 at 21:18 Approved by: Gilbert Perez M.D. on 10/08/2024 at 21:21
[2024-10-08 21:02] LABS: INR 1.1 (0.9-1.3); Prothrombin Time 12.1 SECONDS (9.4-12.5)
[2024-10-08 21:04] LABS: Add Manual Diff / Slide Review NO; Basophils Absolute Auto 0 /uL (0-100); Basophils Percent Auto 0.2 % (0-2); Eosinophils Absolute Auto 0 /uL (0-450); Eosinophils Percent Auto 0.3 % (2-4); Hematocrit 52.6 % (41-53); Hemoglobin 18.9 g/dL (13.5-17.5); Lymphocytes Absolute Auto 3100 /uL (1100-4500); Lymphocytes Percent Auto 39.4 % (25-40); Mean Corpuscular HGB Conc 35.8 % (30-36); Mean Corpuscular Hemoglobin 30.2 PG (26-34); Mean Corpuscular Volume 84.3 fL (80-100); Monocytes Absolute Auto 400 /uL (0-900); Monocytes Percent Auto 4.6 % (3-14); Neutrophils Absolute Auto 4400 /uL (1500-7000); Neutrophils Percent Auto 55.5 % (50-75); Platelet Count 210 X10^3/uL (150-400); Red Blood Cell Count 6.24 X10^6/uL (4.5-5.9); Red Cell Distribution Width 14.9 % (11.6-14.8); White Blood Cell Count 7.9 X10^3/uL (4.5-11.0)
[2024-10-08 21:05] LABS: Lactate (Lactic Acid) 3.2 mmol/L (0.7-2.1)
[2024-10-08 21:06] LABS: Alanine Aminotransferase 32 IU/L (<50); Albumin 5.2 g/dL (3.5-5.0); Albumin Globulin Ratio 1.3 (1.0-2.8); Alkaline Phosphatase 68 U/L (38-126); Aspartate Aminotransferase 46 IU/L (17-59); BUN Creatinine Ratio 25.3 (6-22); Bilirubin Total 1.3 mg/dL (0.2-1.3); Blood Urea Nitrogen 49 mg/dL (9-20); Calcium 9.7 mg/dL (8.4-10.2); Carbon Dioxide 14 mmol/L (22-32); Chloride 88 mmol/L (98-107); Estimated Glomerular Filt Rate 39 mL/min (>60); Globulin 4.1 g/dL (1.7-4.1); Glucose 111 mg/dL (70-100); HEMOLYSIS 27 (0-50); Sodium 124 mmol/L (137-145); Total Protein 9.3 g/dL (6.3-8.2)
--- NOTE | 2024-10-08 21:08 | ED_ITS ---
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 He states it has been having these symptoms for the past 3 days states that he has not taken any of his steroids for the past 3 days given that he has been feeling too weak. He denies any headache visual disturbances chest pain fever chills nausea vomiting abdominal pain or any other GI/ symptoms time. He states he just feels short of breath and weak. Related Data Home Medications Medication Instructions Recorded Confirmed levothyroxine 100 mcg tablet 100 mcg PO DAILY ##0 06/07/12 04/02/18 fludrocortisone 0.1 mg tablet 0.1 mg PO DAILY 04/02/18 04/02/18 hydrocortisone 20 mg tablet 30 mg PO DAILY 04/02/18 04/02/18 Allergies Allergy/AdvReac Type Severity Reaction Status Date / Time No Known Drug Allergies Allergy Verified 04/02/18 20:18 Review of Systems Review of Systems Narrative: General: Positive generalized weakness HEENT: Denies headache, eye drainage, eye irritation, head trauma, sore throat, voice change Cardiovascular: Denies any chest pain, palpitations, shortness of breath, tachycardia Respiratory: Positive shortness of breath, denies cough, wheeze, stridor GI/: Denies any abdominal pain, nausea, vomiting, diarrhea, bright red blood per rectum, melanotic stools, urinary frequency, urinary retention, dysuria, hematuria MSK: Denies any joint pain, muscle pains, swelling Skin: Denies any rashes, lesions, discoloration Neuro: Denies any headache, lightheadedness, dizziness, fainting, weakness Psych: Denies SI/HI Patient History Medical History Hypothyroid Addisons disease Surgical History No pertinent past surgical history Social History household members: family Smoking Status: Never smoker alcohol intake: current Smoking Status: Never smoker alcohol intake frequency: 0-2 drinks per day Exam Narrative Exam Narrative: General: Cooperative, comfortable, well-developed, HEENT: Normocephalic, atraumatic, PERRLA, normal sclera, eyelids normal, Neck: Active full range of motion, atraumatic Chest: Normal to inspection, negative crepitus, no overlying erythema ecchymosis Respiratory: Tachypneic however not in acute respiratory distress, clear to auscultation bilaterally negative cough, wheeze, tachypnea, rhonchi, rales, patient was placed on 5 L nasal cannula Cardiology: Regular rate rhythm negative gallop, murmur, rubs GI/: Normal to inspection, soft, nonrigid, no tenderness to palpation, exam deferred MSK: Full range of active range of motion of all 4 extremities, atraumatic Skin: No rashes lesions noted Neuro: Alert awake oriented x3, moves all 4 extremities spontaneously, cranial nerves intact, able to answer all questions appropriately follows commands appropriately Psych: Cooperative, negative suicidal or homicidal ideations Initial Vital Signs Initial Vital Signs: Vital Signs Temperature 97.6 F 10/08/24 20:28 Pulse Rate 105 H 10/08/24 20:28 Respiratory Rate 30 H 10/08/24 20:28 Blood Pressure 109/60 10/08/24 20:28 Pulse Oximetry 100 10/08/24 20:28 Oxygen Delivery Method Room Air 10/08/24 20:28 Course Orders Ordered: ED Orders 10/08/24 20:34 XR chest 1V Stat EKG-12 Lead Stat Measure peak expiratory flow ONCE RT Consult Eval and Treat NOW 10/08/24 20:40 Complete Blood Count AUTO DIFF Stat Comprehensive Metabolic Panel Stat Lactate (Lactic Acid) Stat NT-proBNP (BNP-Adult 18+) Stat Prothrombin Time INR Stat Troponin I Stat 10/08/24 21:12 CT angio chest PE protocol Stat 10/08/24 21:14 Covid-19 + FLU A/B + RSV - PCR Stat 10/08/24 22:39 Blood Culture Stat 10/08/24 22:56 BMP [Basic Metabolic Panel] Stat Procalcitonin Stat Discontinued Medications Dextrose (Dextrose 50 % In Water 25 Gm/50 Ml Syringe) 25 gm IV NOW ONE Stop: 10/08/24 21:31 Last Admin: 10/08/24 21:36 Dose: 25 gm Documented By: SOLO Fludrocortisone Acetate (Fludrocortisone 0.1 Mg Tablet) 0.1 mg PO NOW ONE Stop: 10/08/24 22:52 Last Admin: 10/08/24 23:32 Dose: 0.1 mg Documented By: TULIO Glucagon (Glucagon,Human Recombinant 1 Mg/Ml Vial) 25 mg IV NOW ONE Stop: 10/08/24 21:22 Last Admin: 10/08/24 22:27 Dose: Not Given Documented By: SOLO Hydrocortisone (Hydrocortisone 100 Mg/2 Ml Vial) 100 mg IV NOW ONE Stop: 10/08/24 21:13 Last Admin: 10/08/24 21:29 Dose: 100 mg Documented By: SOLO Sodium Chloride (Normal Saline 0.9%) 1,000 mls @ 1,000 mls/hr IV BOLUS ONE Stop: 10/08/24 22:16 Last Infusion: 10/08/24 22:25 Dose: Infused Documented By: Admin: 10/08/24 21:23 Dose: 1,000 mls/hr Documented By: SOLO Calcium Gluconate 4.65 meq/ (Sodium Chloride) 60 mls @ 180 mls/hr IV NOW ONE Stop: 10/08/24 21:49 Last Infusion: 10/08/24 22:11 Dose: Infused Documented By: Admin: 10/08/24 21:41 Dose: 180 mls/hr Documented By: SOLO Sodium Chloride (Normal Saline 0.9%) 1,000 mls @ 1,000 mls/hr IV BOLUS ONE Stop: 10/08/24 23:53 Last Infusion: 10/09/24 00:13 Dose: Infused Documented By: Admin: 10/08/24 23:00 Dose: 1,000 mls/hr Documented By: SOLO Insulin Human Regular (Insulin Regular 100 Unit/Ml 3 Ml Vial) 10 unit IV NOW ONE Stop: 10/08/24 21:22 Last Admin: 10/08/24 21:39 Dose: 10 unit Documented By: SOLO Co-signed By: MARI Vital Signs Vital signs: Vital Signs - 8 hr 10/08/24 20:28 10/08/24 20:53 10/08/24 21:00 Temperature 97.6 F Pulse Rate 105 H 92 H 52 L Respiratory Rate 30 H 40 H Blood Pressure 109/60 Pulse Oximetry 100 92 96 Oxygen Delivery Method Room Air Nasal Cannula Oxygen Flow Rate 5 10/08/24 21:12 10/08/24 21:12 10/08/24 21:32 Temperature Pulse Rate 98 H 98 H Respiratory Rate 42 H Blood Pressure 111/62 Pulse Oximetry 96 Oxygen Delivery Method Oxygen Flow Rate 10/08/24 21:36 10/08/24 21:36 10/08/24 22:00 Temperature Pulse Rate 116 H 99 H Respiratory Rate 27 H 42 H Blood Pressure 113/64 Pulse Oximetry 100 91 Oxygen Delivery Method Oxygen Flow Rate 10/08/24 22:30 10/08/24 22:30 10/08/24 23:00 Temperature Pulse Rate 90 Respiratory Rate 21 Blood Pressure 107/67 97/56 L Pulse Oximetry 100 Oxygen Delivery Method Oxygen Flow Rate 10/08/24 23:00 10/08/24 23:30 10/08/24 23:35 Temperature Pulse Rate 99 H 99 H Respiratory Rate Blood Pressure 111/64 Pulse Oximetry 100 96 Oxygen Delivery Method Oxygen Flow Rate 10/08/24 23:35 10/08/24 23:49 Temperature 99.1 F 98.4 F Pulse Rate 93 H Respiratory Rate 22 Blood Pressure Pulse Oximetry 100 Oxygen Delivery Method Room Air Oxygen Flow Rate MDM - SOB/Dyspnea Differential Diagnosis Differential diagnosis: Likely acute exacerbation of chronic obstructive airways disease, congestive heart failure, community acquired pneumonia, asthma with exacerbation, pulmonary embolism and other (ACS, COVID, flu, RSV, adrenal crisis) Lab Data 10/08/24 20:40 10/08/24 22:56 Labs: Lab Results 10/08/24 10/08/24 10/08/24 Range/Units 20:40 21:14 22:39 WBC 7.9 (4.5-11.0) X10^3/uL RBC 6.24 H (4.5-5.9) X10^6/uL Hgb 18.9 H (13.5-17.5) g/dL Hct 52.6 (41-53) % MCV 84.3 (80-100) fL MCH 30.2 (26-34) PG MCHC 35.8 (30-36) % RDW 14.9 H (11.6-14.8) % Plt Count 210 (150-400) X10^3/uL Neut % (Auto) 55.5 (50-75) % Lymph % (Auto) 39.4 (25-40) % [place] % (Auto) 4.6 (3-14) % Eos % (Auto) 0.3 L (2-4) % Baso % (Auto) 0.2 (0-2) % Neut # (Auto) 4400 (2376-2924) /uL Lymph # (Auto) 3100 (7723-3723) /uL [place] # (Auto) 400 (0-900) /uL Eos # (Auto) 0 (0-450) /uL Baso # (Auto) 0 (0-100) /uL PT 12.1 (9.4-12.5) SECONDS INR 1.1 (0.9-1.3) Sodium 124 L (137-145) mmol/L Potassium 6.9 H* (3.4-5.1) mmol/L Chloride 88 L (98-107) mmol/L Carbon Dioxide 14 L (22-32) mmol/L BUN 49 H (9-20) mg/dL Creatinine 1.94 H (0.66-1.25) mg/dL Estimated GFR 39 L (>60) mL/min BUN/Creatinine Ratio 25.3 H (6-22) Glucose 111 H (70-100) mg/dL Lactate 3.2 H 2.6 H (0.7-2.1) mmol/L Calcium 9.7 (8.4-10.2) mg/dL Total Bilirubin 1.3 (0.2-1.3) mg/dL AST 46 (17-59) IU/L ALT 32 (<50) IU/L Alkaline Phosphatase 68 (38-126) U/L Troponin I < 0.012 (0.01-0.034) ng/mL NT-Pro-B Natriuret Pep 66 (<125) pg/mL Total Protein 9.3 H (6.3-8.2) g/dL Albumin 5.2 H (3.5-5.0) g/dL Globulin 4.1 (1.7-4.1) g/dL Albumin/Globulin Ratio 1.3 (1.0-2.8) Procalcitonin (<0.5) ng/mL SARS-CoV-2 (PCR) Negative (Negative) Influenza A (RT-PCR) Flu a negative (NEGATIVE) Influenza B (RT-PCR) Flu b negative (NEGATIVE) RSV (PCR) Negative (Negative) 10/08/24 Range/Units 22:56 WBC (4.5-11.0) X10^3/uL RBC (4.5-5.9) X10^6/uL Hgb (13.5-17.5) g/dL Hct (41-53) % MCV (80-100) fL MCH (26-34) PG MCHC (30-36) % RDW (11.6-14.8) % Plt Count (150-400) X10^3/uL Neut % (Auto) (50-75) % Lymph % (Auto) (25-40) % [place] % (Auto) (3-14) % Eos % (Auto) (2-4) % Baso % (Auto) (0-2) % Neut # (Auto) (1688-7732) /uL Lymph # (Auto) (3361-6370) /uL [place] # (Auto) (0-900) /uL Eos # (Auto) (0-450) /uL Baso # (Auto) (0-100) /uL PT (9.4-12.5) SECONDS INR (0.9-1.3) Sodium 125 L (137-145) mmol/L Potassium 5.2 H D (3.4-5.1) mmol/L Chloride 94 L (98-107) mmol/L Carbon Dioxide 17 L (22-32) mmol/L BUN 48 H (9-20) mg/dL Creatinine 1.72 H (0.66-1.25) mg/dL Estimated GFR 46 L (>60) mL/min BUN/Creatinine Ratio 27.9 H (6-22) Glucose 106 H (70-100) mg/dL Lactate (0.7-2.1) mmol/L Calcium 8.9 (8.4-10.2) mg/dL Total Bilirubin (0.2-1.3) mg/dL AST (17-59) IU/L ALT (<50) IU/L Alkaline Phosphatase (38-126) U/L Troponin I (0.01-0.034) ng/mL NT-Pro-B Natriuret Pep (<125) pg/mL Total Protein (6.3-8.2) g/dL Albumin (3.5-5.0) g/dL Globulin (1.7-4.1) g/dL Albumin/Globulin Ratio (1.0-2.8) Procalcitonin 0.075 (<0.5) ng/mL SARS-CoV-2 (PCR) (Negative) Influenza A (RT-PCR) (NEGATIVE) Influenza B (RT-PCR) (NEGATIVE) RSV (PCR) (Negative) Point of Care Testing Glucose POC 119 Urine Dip Bedside Urine Glucose 100 mg/dl Bedside Urine Bilirubin - Negative Bedside Urine Ketone ++ 40 Urine Specific [place] 1.015 Bedside Urine Occult Blood +/- Bedside Urine pH 6.0 Bedside Urine Protein - Negative Bedside Urine Urobilinogen - Negative Bedside Urine Nitrite - Negative Bedside Urine Leukocytes - Negative Esterase Imaging Data CT scan - chest: Radiologist's Impression: [address] [address] [address] Scan Report Signed Patient: Jacob Mcdonough MR#: [id number] : 1965 Acct:[id number] Age/Sex: 59 / M Date of Service: 10/08/24 Loc: ED Accession Number: [id number] Procedure: CT angio chest PE protocol Ordering Provider: Yang Nathan D.O. PROCEDURE: CT ANGIO CHEST PE PROTOCOL INDICATIONS: hypoxemia TECHNIQUE: After the administration of intravenous contrast, 2 mm thick sections acquired from the pulmonary apices to the posterior costophrenic angles. 3-dimensional maximum intensity projection (MIP) coronal and sagittal reformats were then acquired through the thorax. For radiation dose reduction, the following was used: automated exposure control, adjustment of mA and/or kV according to patient size. COMPARISON: [facility], CT, CT ANGIO CHEST PE PROTOCOL, 08/12/2021, 14:51. FINDINGS: Image quality: Diagnostic. Pulmonary arteries: Pulmonary arteries are normal in size, and demonstrate no intraluminal filling defects to suggest central pulmonary embolism. Lower Neck: No enlarged lymph nodes. Thyroid: No thyroid nodules which require sonographic follow up, per consensus guidelines. Axillae: No enlarged lymph nodes. Chest Wall: Unremarkable. Bones: Unremarkable. Lungs and Pleura: No pneumothorax or pleural effusions. Subtle reticular nodular thickening in periphery of bilateral lung douglas are seen with tree-in-bud appearance most notably in right lower lobe series 5, image 192. Heart: Heart size is normal. No pericardial effusion. Thoracic Vessels: No aortic aneurysm. Mediastinum and Vandana: No enlarged lymph nodes. Esophagus: No wall thickening. No hiatal hernia. Upper Abdomen: Visualized upper abdomen solid organs and bowel loops appear normal. IMPRESSION: 1. No pulmonary embolus. No thoracic aortic aneurysm. 2. No mediastinal or hilar lymphadenopathy by size criteria. 3. Subtle tree-in-bud appearance scattered in periphery of bilateral lung douglas most notably in right lower lobe which may represent small airway infection. No pleural effusion or pneumothorax. Chest x-ray: Radiologist's Impression: [address] [address] XRay Report Signed Patient: Jacob Mcdonough MR#: [id number] : 1965 Acct:[id number] Age/Sex: 59 / M Date of Service: 10/08/24 Loc: ED Accession Number: [id number] Procedure: XR chest 1V Ordering Provider: Yang Nathan D.O. PROCEDURE: XR CHEST 1V INDICATIONS: Shortness of breath TECHNIQUE: One view of the chest was acquired. COMPARISON: [facility], , XR CHEST 1V, 06/25/2024, 1:07. FINDINGS: Surgical changes and devices: None. Lungs and pleura: Lungs are clear. No pleural effusions or pneumothorax. Mediastinum: Mediastinal contours appear normal. Heart size is normal. Bones and chest wall: No suspicious bony lesions. Overlying soft tissues appear unremarkable. IMPRESSION: No acute cardiopulmonary pathology. 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 States he has been feeling generalized weakness over the past 3 days therefore has not taken any of his medications. He states that he also started developing shortness of breath but no chest pain. On initial evaluation patient tachypneic requiring 5 L nasal cannula improve tachypnea after administration of 5 L nasal cannula. EKG sinus tachycardia nonischemic in nature. I did give 100 mg IV hydrocortisone immediately upon arrival. Patient without any leukocytosis, Chem panel remarkable for sodium 124 potassium 6.9 chloride 88 creatinine 1.94 BUN 49, 1 L normal saline ordered, 10 mg IV insulin D50, 1 g calcium gluconate 10 g [place] ordered, patient's EKG without any peaked T- waves. Troponin negative. Chest x-ray without any acute cardiopulmonary abnormality. CTA without any PE. 2150: Patient re-evaluated patient no longer tachypneic not requiring any supplemental oxygen at this time patient require admission for adrenal crisis The patient's management plan was discussed Dr. Alvarado, who agrees to admit the patient to their service and assumes care of this patient at this time. Full admission orders will be placed by the primary team. Discharge Plan Departure Patient Disposition: Admitted As Inpatient Clinical Impression: Acute adrenal crisis, Acute hyperkalemia, Acute hyponatremia Admit Date/Time: 10/09/24 00:23
--- NOTE | 2024-10-08 21:12 | DI.CT.S_ITS ---
PROCEDURE: CT ANGIO CHEST PE PROTOCOL INDICATIONS: hypoxemia TECHNIQUE: After the administration of intravenous contrast, 2 mm thick sections acquired from the pulmonary apices to the posterior costophrenic angles. 3-dimensional maximum intensity projection (MIP) coronal and sagittal reformats were then acquired through the thorax. For radiation dose reduction, the following was used: automated exposure control, adjustment of mA and/or kV according to patient size. COMPARISON: [facility], CT, CT ANGIO CHEST PE PROTOCOL, 08/12/2021, 14:51. FINDINGS: Image quality: Diagnostic. Pulmonary arteries: Pulmonary arteries are normal in size, and demonstrate no intraluminal filling defects to suggest central pulmonary embolism. Lower Neck: No enlarged lymph nodes. Thyroid: No thyroid nodules which require sonographic follow up, per consensus guidelines. Axillae: No enlarged lymph nodes. Chest Wall: Unremarkable. Bones: Unremarkable. Lungs and Pleura: No pneumothorax or pleural effusions. Subtle reticular nodular thickening in periphery of bilateral lung douglas are seen with tree-in-bud appearance most notably in right lower lobe series 5, image 192. Heart: Heart size is normal. No pericardial effusion. Thoracic Vessels: No aortic aneurysm. Mediastinum and Vandana: No enlarged lymph nodes. Esophagus: No wall thickening. No hiatal hernia. Upper Abdomen: Visualized upper abdomen solid organs and bowel loops appear normal. IMPRESSION: 1. No pulmonary embolus. No thoracic aortic aneurysm. 2. No mediastinal or hilar lymphadenopathy by size criteria. 3. Subtle tree-in-bud appearance scattered in periphery of bilateral lung douglas most notably in right lower lobe which may represent small airway infection. No pleural effusion or pneumothorax. Dictated by: Gilbert Perez M.D. on 10/08/2024 at 21:39 Approved by: Gilbert Perez M.D. on 10/08/2024 at 21:42
[2024-10-08 21:18] LABS: NT-proBNP (BNP-Adult 18+) 66 pg/mL (<125); Troponin I < 0.012 ng/mL (0.01-0.034)
[2024-10-08 21:19] LABS: Potassium 6.9 mmol/L (3.4-5.1)
[2024-10-08] MEDS: SODIUM CHLORIDE 0.9% 1,000 ML 1000 ML IV ×2 (21:23→23:00)
[2024-10-08] MEDS: SODIUM ZIRCONIUM CYCLOSILICATE 10 GM POWD.PACK PO (21:28)
[2024-10-08] MEDS: HYDROCORTISONE 100 MG/2 ML VIAL IV (21:29)
[2024-10-08] MEDS: DEXTROSE 50 % IN WATER 25 GM/50 ML SYRINGE IV (21:36)
[2024-10-08] MEDS: INSULIN REGULAR 100 UNIT/ML 3 ML VIAL 10 UNIT IV (21:39)
[2024-10-08] MEDS: CALCIUM GLUCONATE 4.65 MEQ in SODIUM CHLORIDE 0.9% 50 ML 180 MEQ IV (21:41)
--- NOTE | 2024-10-08 22:08 | PC.NURSE ---
FIRE OFFICIAL note: Son, Miguel, is leaving. He would like to be notified with any changes or any discharge times. His phone number is in the chart.
[2024-10-08 22:13] LABS: Influenza A - CEPHEID Flu A NEGATIVE (NEGATIVE); Influenza B - CEPHEID Flu B NEGATIVE (NEGATIVE); Respiratory Syncytial Virus Negative (Negative)
[2024-10-08 22:15] LABS: COVID-19 CEPHEID 4-PLEX PCR Negative (Negative)
[2024-10-08 22:31] LABS: Reflexed Lactate in 2 Hours Y
[2024-10-08 23:01] LABS: Lactate 2HR (Lactic Acid Rflx) 2.6 mmol/L (0.7-2.1)
[2024-10-08 23:18] LABS: BUN Creatinine Ratio 27.9 (6-22); Blood Urea Nitrogen 48 mg/dL (9-20); Calcium 8.9 mg/dL (8.4-10.2); Carbon Dioxide 17 mmol/L (22-32); Chloride 94 mmol/L (98-107); Estimated Glomerular Filt Rate 46 mL/min (>60); Glucose 106 mg/dL (70-100); HEMOLYSIS 49 (0-50); Potassium 5.2 mmol/L (3.4-5.1); Sodium 125 mmol/L (137-145)
[2024-10-08] MEDS: FLUDROCORTISONE 0.1 MG TABLET PO (23:32)
[2024-10-08 23:35] LABS: Procalcitonin 0.075 ng/mL (<0.5)
[2024-10-09] VITALS (32 sets, daily range): BP systolic 80–109; BP diastolic 50–70; PULSE 72–99; RESP 12–21; TEMP 35.9–36.6; O2SAT 94–100; BMI 27.3
--- NOTE | 2024-10-09 00:24 | PM.HP.1 ---
History of Present Illness History of Present Illness Date Patient Seen: 10/09/24 Chief complaint: Poss adrinal crisis; exhaused and sob Narrative: Duplicate, opened in error [facility] Medical History Hypothyroid Addisons disease Surgical History No pertinent past surgical history Social History household members: significant other and family Smoking Status: Never smoker alcohol intake: current Meds Home Medications and Allergies Home Medications Medication Instructions Recorded Confirmed Type levothyroxine 100 mcg tablet 100 mcg PO DAILY ##0 06/07/12 10/09/24 History fludrocortisone 0.1 mg tablet 0.1 mg PO DAILY 04/02/18 10/09/24 History hydrocortisone 20 mg tablet 30 mg PO DAILY 04/02/18 10/09/24 History Allergies Allergy/AdvReac Type Severity Reaction Status Date / Time No Known Drug Allergies Allergy Verified 04/02/18 20:18 Review of Systems Review of Systems ROS: Yes All systems reviewed with the patient and are negative except as otherwise documented Exam Vital Signs (past 8 hours): - 10/08/24 20:28 10/08/24 20:53 10/08/24 21:00 Temperature 97.6 F Pulse Rate 105 H 92 H 52 L Respiratory Rate 30 H 40 H Blood Pressure 109/60 Pulse Oximetry 100 92 96 Oxygen Delivery Method Room Air Nasal Cannula Oxygen Flow Rate 5 10/08/24 21:12 10/08/24 21:12 10/08/24 21:32 Temperature Pulse Rate 98 H 98 H Respiratory Rate 42 H Blood Pressure 111/62 Pulse Oximetry 96 Oxygen Delivery Method Oxygen Flow Rate 10/08/24 21:36 10/08/24 21:36 10/08/24 22:00 Temperature Pulse Rate 116 H 99 H Respiratory Rate 27 H 42 H Blood Pressure 113/64 Pulse Oximetry 100 91 Oxygen Delivery Method Oxygen Flow Rate 10/08/24 22:30 10/08/24 22:30 10/08/24 23:00 Temperature Pulse Rate 90 Respiratory Rate 21 Blood Pressure 107/67 97/56 L Pulse Oximetry 100 Oxygen Delivery Method Oxygen Flow Rate 10/08/24 23:00 10/08/24 23:30 10/08/24 23:35 Temperature Pulse Rate 99 H 99 H Respiratory Rate Blood Pressure 111/64 Pulse Oximetry 100 96 Oxygen Delivery Method Oxygen Flow Rate 10/08/24 23:35 10/08/24 23:49 Temperature 99.1 F 98.4 F Pulse Rate 93 H Respiratory Rate 22 Blood Pressure Pulse Oximetry 100 Oxygen Delivery Method Room Air Oxygen Flow Rate Oxygen Delivery Method Room Air Oxygen Flow Rate 5 Objective Labs 10/09/24 04:10 10/09/24 22:50 Labs: Laboratory Results - last 24 hr 10/08/24 10/08/24 10/08/24 20:40 21:14 22:39 WBC 7.9 RBC 6.24 H Hgb 18.9 H Hct 52.6 MCV 84.3 MCH 30.2 MCHC 35.8 RDW 14.9 H Plt Count 210 Neut % (Auto) 55.5 Lymph % (Auto) 39.4 [place] % (Auto) 4.6 Eos % (Auto) 0.3 L Baso % (Auto) 0.2 Neut # (Auto) 4400 Lymph # (Auto) 3100 [place] # (Auto) 400 Eos # (Auto) 0 Baso # (Auto) 0 PT 12.1 INR 1.1 Sodium 124 L Potassium 6.9 H* Chloride 88 L Carbon Dioxide 14 L BUN 49 H Creatinine 1.94 H Estimated GFR 39 L BUN/Creatinine Ratio 25.3 H Glucose 111 H Lactate 3.2 H 2.6 H Calcium 9.7 Total Bilirubin 1.3 AST 46 ALT 32 Alkaline Phosphatase 68 Troponin I < 0.012 NT-Pro-B Natriuret Pep 66 Total Protein 9.3 H Albumin 5.2 H Globulin 4.1 Albumin/Globulin Ratio 1.3 Procalcitonin SARS-CoV-2 (PCR) Negative Influenza A (RT-PCR) Flu a negative Influenza B (RT-PCR) Flu b negative RSV (PCR) Negative 10/08/24 22:56 WBC RBC Hgb Hct MCV MCH MCHC RDW Plt Count Neut % (Auto) Lymph % (Auto) [place] % (Auto) Eos % (Auto) Baso % (Auto) Neut # (Auto) Lymph # (Auto) [place] # (Auto) Eos # (Auto) Baso # (Auto) PT INR Sodium 125 L Potassium 5.2 H D Chloride 94 L Carbon Dioxide 17 L BUN 48 H Creatinine 1.72 H Estimated GFR 46 L BUN/Creatinine Ratio 27.9 H Glucose 106 H Lactate Calcium 8.9 Total Bilirubin AST ALT Alkaline Phosphatase Troponin I NT-Pro-B Natriuret Pep Total Protein Albumin Globulin Albumin/Globulin Ratio Procalcitonin 0.075 SARS-CoV-2 (PCR) Influenza A (RT-PCR) Influenza B (RT-PCR) RSV (PCR) Assessment & Plan Time-Based Coding :: [TOTAL MINUTES] spent with patient and on the chart (including review of chart, obtaining history, exam, reviewing outside data, placing orders, documenting exam and treatment plan, and counseling patient) on [DATE].
[2024-10-09 01:06] LABS: Magnesium 1.5 mg/dL (1.6-2.3)
[2024-10-09 01:32] LABS: BUN Creatinine Ratio 29.3 (6-22); Blood Urea Nitrogen 44 mg/dL (9-20); Calcium 8.3 mg/dL (8.4-10.2); Carbon Dioxide 19 mmol/L (22-32); Chloride 96 mmol/L (98-107); Estimated Glomerular Filt Rate 54 mL/min (>60); Glucose 116 mg/dL (70-100); HEMOLYSIS 70 (0-50); Potassium 5.4 mmol/L (3.4-5.1); Sodium 125 mmol/L (137-145)
[2024-10-09] MEDS: SODIUM CHLORIDE 0.9% 500 ML 250 ML IV (01:51)
--- NOTE | 2024-10-09 01:57 | PM.HP.1 ---
History of Present Illness History of Present Illness Date Patient Seen: 10/09/24 Chief complaint: Poss adrinal crisis; exhaused and sob Narrative: Jacob Mcdonough is a 59 y/o Male , lives independently at his home, with h/o CKD stage 3, [place]'s disease ( diagnosed at [place] several years ago) , denies adrenalectomy , has been prescribed to be on Cortisol 30 mg daily and Fludrocortisone 0.1 mg daily, has noted progressively increasing Shortness of breath and generalized weakness over last 3 days, and as his meds were up stairs ,, he did not have the energy to go upstairs to get his medications, so he has not been able to take both his meds x 3 days. Denies cough, fevers or chills, CP, Abd Pain, N/V/D, lihjt Headedness or Syncope. No h/o NH, PE, DM, HTN, or Stroke He was admitted with Adrenal Crisis sec to having been non compliant with his medications ( Cortisol and Fludrcortisone) in Jun 2024, and stress sec to a gangrenous appendicitis amd moderate OSCAR ( creat 3+ at that time) and was transferred to higher level care where a professor of counseling was available to see pt if Renal function would deteriorate any further. Pt states he had his gb inflamed about 2 months ago and had a lap joann done at a [facility], at that time.( 2 months ago) Given his shortness of breath and gen weakness, he called his son, who brought him to ED for evaluation. In the ED he was moderately hypoxic ( O2 sats in 80s on RA) , Tachycardiac HR at 105, BPS : 109/69, RR 30, Afebrile He was requiring 5 L O2 via nc to keep sats > 93% Labs remarkable for Hyperkalemia, Hyponatremia, OSCAR, CO2 was low at 14 , Creat up at 1.94/ BUN 49, Calcium 9.7 VBG / ABG ordering malfunctioning in ED so was not done. CTA Chest : No PE Subtle tree-in-bud appearance scattered in periphery of bilateral lung douglas most notably in right lower lobe which may represent small airway infection. No pleural effusion or pneumothorax. No Leukocytosis, Procal not elevated at 0.075 Patient had repeat BMP done, with K at 5.2 Pt was admitted to Hospital team as In patient in ICU for close monitoring. Home Medications Medication Instructions Recorded Confirmed levothyroxine 100 mcg tablet 100 mcg PO DAILY ##0 06/07/12 04/02/18 fludrocortisone 0.1 mg tablet 0.1 mg PO DAILY 04/02/18 04/02/18 hydrocortisone 20 mg tablet 30 mg PO DAILY 04/02/18 04/02/18 Allergies Allergy/AdvReac Type Severity Reaction Status Date / Time No Known Drug Allergies Allergy Verified 04/02/18 20:18 Meds administered in ED: Dextrose (Dextrose 50 % In Water 25 Gm/50 Ml Syringe) 25 gm IV Fludrocortisone Acetate (Fludrocortisone 0.1 Mg Tablet) 0.1 mg PO Glucagon (Glucagon,Human Recombinant 1 Mg/Ml Vial) 25 mg IV Hydrocortisone (Hydrocortisone 100 Mg/2 Ml Vial) 100 mg IV Sodium Chloride (Normal Saline 0.9%) 1,000 mls @ 1,000 mls/hr IV BOLUS Calcium Gluconate 4.65 meq/ (Sodium Chloride) 60 mls @ 180 mls/hr IV Sodium Chloride (Normal Saline 0.9%) 1,000 mls @ 1,000 mls/hr IV Insulin Human Regular (Insulin Regular 100 Unit/Ml 3 Ml Vial) 10 unit IV NOW ONE Vital Signs Vital signs: Vital Signs - 8 hr 10/09/2519:28 10/09/2519:53 10/08/2520:00 Temperature 97.6 F Pulse Rate 105 H 92 H 52 L Respiratory Rate 30 H 40 H Blood Pressure 109/60 Pulse Oximetry 100 92 96 Oxygen Delivery Method Room Air Nasal Cannula Oxygen Flow Rate 5 10/08/2520:12 10/08/2520:12 10/08/2520:32 Temperature Pulse Rate 98 H 98 H Respiratory Rate 42 H Blood Pressure 111/62 Pulse Oximetry 96 Oxygen Delivery Method Oxygen Flow Rate 10/08/2520:36 10/08/2520:36 10/08/2521:00 Temperature Pulse Rate 116 H 99 H Respiratory Rate 27 H 42 H Blood Pressure 113/64 Pulse Oximetry 100 91 Oxygen Delivery Method Oxygen Flow Rate 10/08/2521:30 10/08/2521:30 10/08/2522:00 Temperature Pulse Rate 90 Respiratory Rate 21 Blood Pressure 107/67 97/56 L Pulse Oximetry 100 Oxygen Delivery Method Oxygen Flow Rate 10/08/2522:00 10/08/2522:30 10/08/2522:35 Temperature Pulse Rate 99 H 99 H Respiratory Rate Blood Pressure 111/64 Pulse Oximetry 100 96 Oxygen Delivery Method Oxygen Flow Rate 10/08/2522:35 10/08/2522:49 Temperature 99.1 F 98.4 F Pulse Rate 93 H Respiratory Rate 22 Blood Pressure Pulse Oximetry 100 Oxygen Delivery Method Room Air Oxygen Flow Rate 10/08/24 20:40 10/08/24 22:56 Labs: Lab Results 10/08/24 10/08/24 10/08/24 Range/Units 20:40 21:14 22:39 WBC 7.9 (4.5-11.0) X10^3/uL RBC 6.24 H (4.5-5.9) X10^6/uL Hgb 18.9 H (13.5-17.5) g/dL Hct 52.6 (41-53) % MCV 84.3 (80-100) fL MCH 30.2 (26-34) PG MCHC 35.8 (30-36) % RDW 14.9 H (11.6-14.8) % Plt Count 210 (150-400) X10^3/uL Neut % (Auto) 55.5 (50-75) % Lymph % (Auto) 39.4 (25-40) % [place] % (Auto) 4.6 (3-14) % Eos % (Auto) 0.3 L (2-4) % Baso % (Auto) 0.2 (0-2) % Neut # (Auto) 4400 (6398-8977) /uL Lymph # (Auto) 3100 (8608-5603) /uL [place] # (Auto) 400 (0-900) /uL Eos # (Auto) 0 (0-450) /uL Baso # (Auto) 0 (0-100) /uL PT 12.1 (9.4-12.5) SECONDS INR 1.1 (0.9-1.3) Sodium 124 L (137-145) mmol/L Potassium 6.9 H* (3.4-5.1) mmol/L Chloride 88 L (98-107) mmol/L Carbon Dioxide 14 L (22-32) mmol/L BUN 49 H (9-20) mg/dL Creatinine 1.94 H (0.66-1.25) mg/dL Estimated GFR 39 L (>60) mL/min BUN/Creatinine Ratio 25.3 H (6-22) Glucose 111 H (70-100) mg/dL Lactate 3.2 H 2.6 H (0.7-2.1) mmol/L Calcium 9.7 (8.4-10.2) mg/dL Total Bilirubin 1.3 (0.2-1.3) mg/dL AST 46 (17-59) IU/L ALT 32 (<50) IU/L Alkaline Phosphatase 68 (38-126) U/L Troponin I < 0.012 (0.01-0.034) ng/mL NT-Pro-B Natriuret Pep 66 (<125) pg/mL Total Protein 9.3 H (6.3-8.2) g/dL Albumin 5.2 H (3.5-5.0) g/dL Globulin 4.1 (1.7-4.1) g/dL Albumin/Globulin Ratio 1.3 (1.0-2.8) Procalcitonin (<0.5) ng/mL SARS-CoV-2 (PCR) Negative (Negative) Influenza A (RT-PCR) Flu a negative (NEGATIVE) Influenza B (RT-PCR) Flu b negative (NEGATIVE) RSV (PCR) Negative (Negative) Sodium 125 L (137-145) mmol/L Potassium 5.2 H D (3.4-5.1) mmol/L Chloride 94 L (98-107) mmol/L Carbon Dioxide 17 L (22-32) mmol/L BUN 48 H (9-20) mg/dL Creatinine 1.72 H (0.66-1.25) mg/dL Estimated GFR 46 L (>60) mL/min BUN/Creatinine Ratio 27.9 H (6-22) Glucose 106 H (70-100) mg/dL Lactate (0.7-2.1) mmol/L Calcium 8.9 (8.4-10.2) mg/dL Total Bilirubin (0.2-1.3) mg/dL AST (17-59) IU/L ALT (<50) IU/L Alkaline Phosphatase (38-126) U/L Troponin I (0.01-0.034) ng/mL NT-Pro-B Natriuret Pep (<125) pg/mL Total Protein (6.3-8.2) g/dL Albumin (3.5-5.0) g/dL Globulin (1.7-4.1) g/dL Albumin/Globulin Ratio (1.0-2.8) Procalcitonin 0.075 (<0.5) ng/mL SARS-CoV-2 (PCR) (Negative) Influenza A (RT-PCR) (NEGATIVE) Influenza B (RT-PCR) (NEGATIVE) RSV (PCR) (Negative) Point of Care Testing Glucose POC 119 Urine Dip Bedside Urine Glucose 100 mg/dl Bedside Urine Bilirubin - Negative Bedside Urine Ketone ++ 40 Urine Specific [place] 1.015 Bedside Urine Occult Blood +/- Bedside Urine pH 6.0 Bedside Urine Protein - Negative Bedside Urine Urobilinogen - Negative Bedside Urine Nitrite - Negative Bedside Urine Leukocytes - Negative Esterase Imaging Data CT scan - chest: Radiologist's Impression: COMPARISON: [facility], CT, CT ANGIO CHEST PE PROTOCOL, 08/12/2021, Lungs and Pleura: No pneumothorax or pleural effusions. Subtle reticular nodular thickening in periphery of bilateral lung douglas are seen with tree-in-bud appearance most notably in right lower lobe Heart: Heart size is normal. No pericardial effusion. Thoracic Vessels: No aortic aneurysm. Mediastinum and Vandana: No enlarged lymph nodes. Esophagus: No wall thickening. No hiatal hernia. Upper Abdomen: Visualized upper abdomen solid organs and bowel loops appear normal. IMPRESSION: 1. No pulmonary embolus. No thoracic aortic aneurysm. 2. No mediastinal or hilar lymphadenopathy by size criteria. 3. Subtle tree-in-bud appearance scattered in periphery of bilateral lung douglas most notably in right lower lobe which may represent small airway infection. No pleural effusion or pneumothorax. [facility] Medical History Hypothyroid Addisons disease Surgical History No pertinent past surgical history Social History household members: family Smoking Status: Never smoker alcohol intake: current Meds Home Medications and Allergies Home Medications Medication Instructions Recorded Confirmed Type levothyroxine 100 mcg tablet 100 mcg PO DAILY ##0 06/07/12 10/09/24 History fludrocortisone 0.1 mg tablet 0.1 mg PO DAILY 04/02/18 10/09/24 History hydrocortisone 20 mg tablet 30 mg PO DAILY 04/02/18 10/09/24 History Allergies Allergy/AdvReac Type Severity Reaction Status Date / Time No Known Drug Allergies Allergy Verified 04/02/18 20:18 Exam Vital Signs (past 8 hours): - 10/08/24 20:28 10/08/24 20:53 10/08/24 21:00 Temperature 97.6 F Pulse Rate 105 H 92 H 52 L Respiratory Rate 30 H 40 H Blood Pressure 109/60 Pulse Oximetry 100 92 96 Oxygen Delivery Method Room Air Nasal Cannula Oxygen Flow Rate 5 10/08/24 21:12 10/08/24 21:12 10/08/24 21:32 Temperature Pulse Rate 98 H 98 H Respiratory Rate 42 H Blood Pressure 111/62 Pulse Oximetry 96 Oxygen Delivery Method Oxygen Flow Rate 10/08/24 21:36 10/08/24 21:36 10/08/24 22:00 Temperature Pulse Rate 116 H 99 H Respiratory Rate 27 H 42 H Blood Pressure 113/64 Pulse Oximetry 100 91 Oxygen Delivery Method Oxygen Flow Rate 10/08/24 22:30 10/08/24 22:30 10/08/24 23:00 Temperature Pulse Rate 90 Respiratory Rate 21 Blood Pressure 107/67 97/56 L Pulse Oximetry 100 Oxygen Delivery Method Oxygen Flow Rate 10/08/24 23:00 10/08/24 23:30 10/08/24 23:35 Temperature Pulse Rate 99 H 99 H Respiratory Rate Blood Pressure 111/64 Pulse Oximetry 100 96 Oxygen Delivery Method Oxygen Flow Rate 10/08/24 23:35 10/08/24 23:49 10/09/24 00:00 Temperature 99.1 F 98.4 F Pulse Rate 93 H 99 H Respiratory Rate 22 21 Blood Pressure Pulse Oximetry 100 100 Oxygen Delivery Method Room Air Oxygen Flow Rate 10/09/24 00:00 10/09/24 00:22 10/09/24 00:22 Temperature Pulse Rate 92 H Respiratory Rate Blood Pressure 102/70 102/63 Pulse Oximetry 100 Oxygen Delivery Method Oxygen Flow Rate 10/09/24 00:23 10/09/24 00:23 10/09/24 00:26 Temperature Pulse Rate 93 H Respiratory Rate Blood Pressure 103/64 Pulse Oximetry 100 Oxygen Delivery Method Room Air Oxygen Flow Rate 10/09/24 00:30 10/09/24 00:30 10/09/24 01:00 Temperature 97.4 F L Pulse Rate 94 H 90 Respiratory Rate 19 16 Blood Pressure 109/59 L 99/62 Pulse Oximetry 100 100 Oxygen Delivery Method Room Air Oxygen Flow Rate 3 10/09/24 01:41 Temperature Pulse Rate 93 H Respiratory Rate 18 Blood Pressure Pulse Oximetry 100 Oxygen Delivery Method Oxygen Flow Rate 0 Oxygen Delivery Method Room Air Oxygen Flow Rate 0 Narrative Exam Narrative: Cooperative appearing comfortable. Denies any discomfort, states not short of breath. Is on RA and O2 sats: 100% HEENT: At, [place] Neck is supple, no TMG or Lymph adenopathy EOMI, Non icteric sclerae, Normal conjunctivae] Oropharynx : no erythema or Inflammation Chest : CTA BS present and equal Bilat. No Wheeze, Rales or Rhonchi. Normal Resp Effort. Speaking in full sentences. Heart: RRR, no M/G/R Abd : soft NT, ND, no HSM, no masses, BS Present and normo active. No Flank Tenderness Ext: No edema, Cyanosis or Clubbing . No Calf Tenderness bilat. PP 2 + bilat symmetric Skin : warm dry, no rash or hyper pigmentation Neuro : Non focal. Cr N 2-12 intact , no Motor or Sensory deficits. Psyche: Normal affect and judgment. . Objective Labs 10/08/24 20:40 10/09/24 01:00 Labs: Laboratory Results - last 24 hr 10/08/24 10/08/24 10/08/24 20:40 21:14 22:39 WBC 7.9 RBC 6.24 H Hgb 18.9 H Hct 52.6 MCV 84.3 MCH 30.2 MCHC 35.8 RDW 14.9 H Plt Count 210 Neut % (Auto) 55.5 Lymph % (Auto) 39.4 [place] % (Auto) 4.6 Eos % (Auto) 0.3 L Baso % (Auto) 0.2 Neut # (Auto) 4400 Lymph # (Auto) 3100 [place] # (Auto) 400 Eos # (Auto) 0 Baso # (Auto) 0 PT 12.1 INR 1.1 Sodium 124 L Potassium 6.9 H* Chloride 88 L Carbon Dioxide 14 L BUN 49 H Creatinine 1.94 H Estimated GFR 39 L BUN/Creatinine Ratio 25.3 H Glucose 111 H Lactate 3.2 H 2.6 H Calcium 9.7 Magnesium Total Bilirubin 1.3 AST 46 ALT 32 Alkaline Phosphatase 68 Troponin I < 0.012 NT-Pro-B Natriuret Pep 66 Total Protein 9.3 H Albumin 5.2 H Globulin 4.1 Albumin/Globulin Ratio 1.3 Procalcitonin SARS-CoV-2 (PCR) Negative Influenza A (RT-PCR) Flu a negative Influenza B (RT-PCR) Flu b negative RSV (PCR) Negative 10/08/24 10/09/24 10/09/24 22:56 00:43 01:00 WBC RBC Hgb Hct MCV MCH MCHC RDW Plt Count Neut % (Auto) Lymph % (Auto) [place] % (Auto) Eos % (Auto) Baso % (Auto) Neut # (Auto) Lymph # (Auto) [place] # (Auto) Eos # (Auto) Baso # (Auto) PT INR Sodium 125 L 125 L Potassium 5.2 H D 5.4 H Chloride 94 L 96 L Carbon Dioxide 17 L 19 L BUN 48 H 44 H Creatinine 1.72 H 1.50 H Estimated GFR 46 L 54 L BUN/Creatinine Ratio 27.9 H 29.3 H Glucose 106 H 116 H Lactate Calcium 8.9 8.3 L Magnesium 1.5 L Total Bilirubin AST ALT Alkaline Phosphatase Troponin I NT-Pro-B Natriuret Pep Total Protein Albumin Globulin Albumin/Globulin Ratio Procalcitonin 0.075 SARS-CoV-2 (PCR) Influenza A (RT-PCR) Influenza B (RT-PCR) RSV (PCR) Assessment & Plan Assessment and plan (1) Acute hyponatremia: Problem details: Sec to Addisonian crisis, as well as decreased oral intake Recd 2 L NS in ED, continue close monitoring of Electrolytes , q 4 hours, and avoid over correction of Sodium Check Urine Sodium and osmols Strict Is and Os Status: Acute (2) Severe sepsis with acute organ dysfunction: Problem details: Initial Lactate up at 3.2 Repeat after IVF : 2.6 No source of Infection identified except ? Reticular changes Bilat bases/ michelle RLL , Ree in bud appearance Procal is not elevated, No Leukocytosis, no fevers, Viral Resop panel is negative Bl cx obtained Shall repeat CBC in the morning and holding abx currently Consider discussing CTA Chest findings with ID/Pulm for recommendations Status: Acute (3) Acute respiratory failure with hypoxia: Problem details: Requiring 5 L supp O2 , as O2 sats at arrival : 80s. repeat check : O2 sats 100 % on RA Pro BNP 66 , no pleural effusions or Pulm edema. No PE . Abn :Lung parenchymal findings ? Clinical significance Continue monitoring closely Status: Acute Time-Based Coding :: [TOTAL MINUTES] spent with patient and on the chart (including review of chart, obtaining history, exam, reviewing outside data, placing orders, documenting exam and treatment plan, and counseling patient) on [DATE].
[2024-10-09 02:09] LABS: Lactate (Lactic Acid) 1.1 mmol/L (0.7-2.1)
[2024-10-09 02:42] LABS: MRSA (Nasal) PCR NOT DETECTED (Not Detect)
[2024-10-09 03:47] LABS: Creatinine Urine Random 72.54 mg/dL; Potassium Urine Random 47.2 mmol/L; Sodium Urine Random 87 mmol/L (30-90)
[2024-10-09] MEDS: HYDROCORTISONE 100 MG/2 ML VIAL 50 MG IV ×4 (04:03→20:39)
[2024-10-09] MEDS: SODIUM CHLORIDE 0.9% 100 ML 500 ML IV (04:04)
[2024-10-09 04:24] LABS: Add Manual Diff / Slide Review NO; Basophils Absolute Auto 0 /uL (0-100); Basophils Percent Auto 0.2 % (0-2); Eosinophils Absolute Auto 0 /uL (0-450); Eosinophils Percent Auto 0.1 % (2-4); Hematocrit 41.7 % (41-53); Hemoglobin 14.7 g/dL (13.5-17.5); Lymphocytes Absolute Auto 1900 /uL (1100-4500); Mean Corpuscular HGB Conc 35.3 % (30-36); Monocytes Absolute Auto 100 /uL (0-900); Monocytes Percent Auto 1.8 % (3-14); Neutrophils Absolute Auto 4600 /uL (1500-7000); Neutrophils Percent Auto 69.9 % (50-75); Platelet Count 148 X10^3/uL (150-400); Red Blood Cell Count 4.91 X10^6/uL (4.5-5.9); Red Cell Distribution Width 14.6 % (11.6-14.8); White Blood Cell Count 6.6 X10^3/uL (4.5-11.0)
[2024-10-09 04:35] LABS: Blood Urea Nitrogen 40 mg/dL (9-20); Calcium 8.4 mg/dL (8.4-10.2); Carbon Dioxide 16 mmol/L (22-32); Chloride 98 mmol/L (98-107); Estimated Glomerular Filt Rate 55 mL/min (>60); Glucose 110 mg/dL (70-100); HEMOLYSIS 39 (0-50); Sodium 124 mmol/L (137-145)
[2024-10-09 04:36] LABS: Potassium 6.2 mmol/L (3.4-5.1)
--- NOTE | 2024-10-09 05:29 | EKG_ITS ---
[place] [id number] [place] [id number] Test Date: 2024-10-09 Pat Name: Jacob Mcdonough Department: [facility] Room: 229 Gender: Male Uniform Room Attendant: TANESHA : 1965 Requested By: Order Number: [id number] Reading MD: Yang Smith Measurements Intervals Staples Rate: 80 P: 35 CO: 166 QRS: 36 QRSD: 102 T: 48 QT: 398 QTc: 459 Interpretive Statements Normal sinus rhythm Low voltage QRS Cannot rule out Anterior infarct , age undetermined Electronically Signed On 10-09-2024 18:36:01 PST by Yang Smith
[2024-10-09] MEDS: INSULIN REGULAR 100 UNIT/ML 3 ML VIAL 10 UNIT IV (05:31)
[2024-10-09] MEDS: DEXTROSE 50 % IN WATER 25 GM/50 ML SYRINGE IV (05:33)
[2024-10-09] MEDS: CALCIUM GLUCONATE 4.65 MEQ in SODIUM CHLORIDE 0.9% 50 ML 180 MEQ IV (05:36)
[2024-10-09] MEDS: SODIUM CHLORIDE 1,000 MG TABLET 1000 MG PO ×2 (05:42→08:39)
[2024-10-09] MEDS: MAGNESIUM SULFATE 2 GM/50 ML PIGGYBACK IV (07:00)
[2024-10-09] MEDS: HEPARIN 5,000 UNIT/ML VIAL 5000 UNIT SUBCUT ×2 (08:39→20:39)
[2024-10-09] MEDS: SODIUM CHLORIDE 0.9% FLUSH 10 ML IV ×2 (08:39→20:39)
[2024-10-09] MEDS: FLUDROCORTISONE 0.1 MG TABLET PO (09:01)
[2024-10-09 10:44] LABS: BUN Creatinine Ratio 27.3 (6-22); Blood Urea Nitrogen 36 mg/dL (9-20); Calcium 8.8 mg/dL (8.4-10.2); Carbon Dioxide 15 mmol/L (22-32); Chloride 98 mmol/L (98-107); Estimated Glomerular Filt Rate > 60 mL/min (>60); Glucose 109 mg/dL (70-100); HEMOLYSIS 17 (0-50); Sodium 125 mmol/L (137-145)
[2024-10-09 10:45] LABS: Potassium 6.2 mmol/L (3.4-5.1)
--- NOTE | 2024-10-09 10:55 | PM.HP.1 ---
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 Denies cough, fevers or chills, CP, Abd Pain, N/V/D, lihjt Headedness or Syncope. No h/o [place], PE, DM, HTN, or Stroke He was admitted with Adrenal Crisis sec to having been non compliant with his medications ( Cortisol and Fludrcortisone) in Jun 2024, and stress sec to a gangrenous appendicitis amd moderate OSCAR ( creat 3+ at that time) and was transferred to higher level care where a slack line yarder was available to see pt if Renal function would deteriorate any further. Pt states he had his gb inflamed about 2 months ago and had a lap joann done at a [facility] [place], at that time.( 2 months ago) Given his shortness of breath and gen weakness, he called his son, who brought him to ED for evaluation. In the ED he was moderately hypoxic ( O2 sats in 80s on RA) , Tachycardiac HR at 105, BPS : 109/69, RR 30, Afebrile He was requiring 5 L O2 via nc to keep sats > 93% Labs remarkable for Hyperkalemia, Hyponatremia, OSCAR, CO2 was low at 14 , Creat up at 1.94/ BUN 49, Calcium 9.7 VBG / ABG ordering malfunctioning in ED so was not done. Interval history: This morning he feels much improved. He denies chest pain, shortness of breath, palpitations, dizziness. Sodium remains slightly low and potassium high, no EKG changes, telemetry thus far unremarkable. Cr is improving thus far. He felt like he had the flu for a couple days prior to not taking his medications, with dyspnea on exertion primarily with going up stairs. He denied edema. He reports these have all resolved now. [facility] Medical History Hypothyroid Addisons disease Surgical History No pertinent past surgical history Social History household members: family Smoking Status: Never smoker alcohol intake: current Meds Home Medications and Allergies Home Medications Medication Instructions Recorded Confirmed Type levothyroxine 100 mcg tablet 100 mcg PO DAILY ##0 06/07/12 10/09/24 History fludrocortisone 0.1 mg tablet 0.1 mg PO DAILY 04/02/18 10/09/24 History hydrocortisone 20 mg tablet 30 mg PO DAILY 04/02/18 10/09/24 History Allergies Allergy/AdvReac Type Severity Reaction Status Date / Time No Known Drug Allergies Allergy Verified 04/02/18 20:18 Review of Systems Review of Systems Narrative: All other systems reviewed with the patient and are negative unless otherwise stated. Exam Vital Signs (past 8 hours): - 10/09/24 03:38 10/09/24 03:40 10/09/24 03:40 Pulse Rate 80 81 Respiratory Rate Blood Pressure 95/52 L Pulse Oximetry 98 98 Oxygen Delivery Method Oxygen Flow Rate 10/09/24 03:42 10/09/24 03:42 10/09/24 03:44 Pulse Rate 79 77 Respiratory Rate 12 Blood Pressure 93/50 L 95/52 L Pulse Oximetry 98 98 Oxygen Delivery Method Oxygen Flow Rate 0 10/09/24 04:00 10/09/24 04:00 10/09/24 04:30 Pulse Rate 77 84 Respiratory Rate Blood Pressure 87/54 L Pulse Oximetry 99 98 Oxygen Delivery Method Oxygen Flow Rate 10/09/24 05:00 10/09/24 05:00 10/09/24 05:30 Pulse Rate 80 99 H Respiratory Rate Blood Pressure 86/54 L Pulse Oximetry 100 100 Oxygen Delivery Method Oxygen Flow Rate 10/09/24 06:00 10/09/24 06:00 10/09/24 06:30 Pulse Rate 89 87 Respiratory Rate Blood Pressure 94/68 Pulse Oximetry 100 98 Oxygen Delivery Method Oxygen Flow Rate 10/09/24 07:00 10/09/24 07:00 10/09/24 07:00 Pulse Rate 81 Respiratory Rate Blood Pressure 89/62 L Pulse Oximetry 99 Oxygen Delivery Method Room Air Oxygen Flow Rate 10/09/24 07:30 10/09/24 08:00 10/09/24 08:00 Pulse Rate 79 76 Respiratory Rate Blood Pressure 80/53 L Pulse Oximetry 98 100 Oxygen Delivery Method Oxygen Flow Rate 10/09/24 08:04 10/09/24 08:04 10/09/24 08:30 Pulse Rate 82 81 Respiratory Rate Blood Pressure 92/59 L Pulse Oximetry 100 99 Oxygen Delivery Method Oxygen Flow Rate 10/09/24 08:37 10/09/24 09:00 Pulse Rate 93 H Respiratory Rate Blood Pressure 99/64 Pulse Oximetry 100 Oxygen Delivery Method Oxygen Flow Rate Oxygen Delivery Method Room Air Oxygen Flow Rate 0 Narrative Exam Narrative: General:? Patient is well developed and well nourished, in no distress at this time. HEENT:? Normocephalic, atraumatic, extraocular muscles intact, oral pharynx is clear and mucous membranes are moist. Neck: supple and symmetric, trachea is midline, no cervical adenopathy. Negative for JVD Chest:? Normal AP diameter and contour without kyphoscoliosis, no tachypnea, equal chest rise bilaterally. Lungs:? CTA b/l no wheezing rhonchi or rales. Cardio:?RRR no m/r/g. Abdomen: S NT ND. No CVA tenderness. Musculoskeletal:? Muscle strength and tone are equal within normal limits, no deformity. Extremities: No edema or joint effusions. No cyanosis or clubbing. Skin:? Pale,? Warm to touch,dry and intact without rashes, ulcerations or petechiae.? Neuro:? Alert and orientated x3,? sensation to touch intact in all extremities, no gross deficits noted of cranial nerves. Psych:? Patient has a well-kept appearance, appropriate affect, mental status attitude thought context and judgment are appropriate for age. Objective ECG Impression: Mild T wave prominence compared to prior tracings, sinus rhythm Labs 10/09/24 04:10 10/09/24 10:00 Labs: Laboratory Results - last 24 hr 10/08/24 10/08/24 10/08/24 20:40 21:14 22:39 WBC 7.9 RBC 6.24 H Hgb 18.9 H Hct 52.6 MCV 84.3 MCH 30.2 MCHC 35.8 RDW 14.9 H Plt Count 210 Neut % (Auto) 55.5 Lymph % (Auto) 39.4 [place] % (Auto) 4.6 Eos % (Auto) 0.3 L Baso % (Auto) 0.2 Neut # (Auto) 4400 Lymph # (Auto) 3100 [place] # (Auto) 400 Eos # (Auto) 0 Baso # (Auto) 0 PT 12.1 INR 1.1 Sodium 124 L Potassium 6.9 H* Chloride 88 L Carbon Dioxide 14 L BUN 49 H Creatinine 1.94 H Estimated GFR 39 L BUN/Creatinine Ratio 25.3 H Glucose 111 H Lactate 3.2 H 2.6 H Calcium 9.7 Magnesium Total Bilirubin 1.3 AST 46 ALT 32 Alkaline Phosphatase 68 Troponin I < 0.012 NT-Pro-B Natriuret Pep 66 Total Protein 9.3 H Albumin 5.2 H Globulin 4.1 Albumin/Globulin Ratio 1.3 Procalcitonin Ur Random Sodium Ur Random Potassium Urine Creatinine Nasal Screen MRSA (PCR) SARS-CoV-2 (PCR) Negative Influenza A (RT-PCR) Flu a negative Influenza B (RT-PCR) Flu b negative RSV (PCR) Negative 10/08/24 10/08/24 10/09/24 22:56 23:26 00:43 WBC RBC Hgb Hct MCV MCH MCHC RDW Plt Count Neut % (Auto) Lymph % (Auto) [place] % (Auto) Eos % (Auto) Baso % (Auto) Neut # (Auto) Lymph # (Auto) [place] # (Auto) Eos # (Auto) Baso # (Auto) PT INR Sodium 125 L Potassium 5.2 H D Chloride 94 L Carbon Dioxide 17 L BUN 48 H Creatinine 1.72 H Estimated GFR 46 L BUN/Creatinine Ratio 27.9 H Glucose 106 H Lactate Calcium 8.9 Magnesium 1.5 L Total Bilirubin AST ALT Alkaline Phosphatase Troponin I NT-Pro-B Natriuret Pep Total Protein Albumin Globulin Albumin/Globulin Ratio Procalcitonin 0.075 Ur Random Sodium 87 Ur Random Potassium 47.2 Urine Creatinine 72.54 Nasal Screen MRSA (PCR) SARS-CoV-2 (PCR) Influenza A (RT-PCR) Influenza B (RT-PCR) RSV (PCR) 10/09/24 10/09/24 10/09/24 01:00 01:10 01:52 WBC RBC Hgb Hct MCV MCH MCHC RDW Plt Count Neut % (Auto) Lymph % (Auto) [place] % (Auto) Eos % (Auto) Baso % (Auto) Neut # (Auto) Lymph # (Auto) [place] # (Auto) Eos # (Auto) Baso # (Auto) PT INR Sodium 125 L Potassium 5.4 H Chloride 96 L Carbon Dioxide 19 L BUN 44 H Creatinine 1.50 H Estimated GFR 54 L BUN/Creatinine Ratio 29.3 H Glucose 116 H Lactate 1.1 Calcium 8.3 L Magnesium Total Bilirubin AST ALT Alkaline Phosphatase Troponin I NT-Pro-B Natriuret Pep Total Protein Albumin Globulin Albumin/Globulin Ratio Procalcitonin Ur Random Sodium Ur Random Potassium Urine Creatinine Nasal Screen MRSA (PCR) Not detected SARS-CoV-2 (PCR) Influenza A (RT-PCR) Influenza B (RT-PCR) RSV (PCR) 10/09/24 10/09/24 04:10 10:00 WBC 6.6 RBC 4.91 Hgb 14.7 Hct 41.7 MCV 85.0 MCH 30.0 MCHC 35.3 RDW 14.6 Plt Count 148 L Neut % (Auto) 69.9 Lymph % (Auto) 28.0 [place] % (Auto) 1.8 L Eos % (Auto) 0.1 L Baso % (Auto) 0.2 Neut # (Auto) 4600 Lymph # (Auto) 1900 [place] # (Auto) 100 Eos # (Auto) 0 Baso # (Auto) 0 PT INR Sodium 124 L 125 L Potassium 6.2 H 6.2 H Chloride 98 98 Carbon Dioxide 16 L 15 L BUN 40 H 36 H Creatinine 1.48 H 1.32 H Estimated GFR 55 L > 60 BUN/Creatinine Ratio 27.0 H 27.3 H Glucose 110 H 109 H Lactate Calcium 8.4 8.8 Magnesium Total Bilirubin AST ALT Alkaline Phosphatase Troponin I NT-Pro-B Natriuret Pep Total Protein Albumin Globulin Albumin/Globulin Ratio Procalcitonin Ur Random Sodium Ur Random Potassium Urine Creatinine Nasal Screen MRSA (PCR) SARS-CoV-2 (PCR) Influenza A (RT-PCR) Influenza B (RT-PCR) RSV (PCR) Assessment & Plan Assessment & Plan narrative: 1. Adrenal/addisonian crisis, POA, active with hyponatremia and hyperkalemia - continue hydrocort 50 mg q6 for 24 hours, then begin taper, will be 50 q12 tomorrow - continue to monitor bmp q4 hr until potassium improving, hyponatremia stable around 125, patient is asymptomatic. K is still 6.2, monitor on tele, treat acutely if >6.5, but will continue to try to bring down slowly with correction of the underlying adrenal crisis. - check CK with next lab draw, has history of rhabdo on prior admissions. - continue NS infusion - patient did have recent abdominal surgery with appendectomy, however no abdominal symptoms so low likelihood of infection. Abdomen was not imaged on admission but unless symptoms will not persue imaging. Procalcitonin is within normal limits at 0.075. -CTA of his chest showed no pulmonary embolism, but a small tree in bud appearance in his right lower lobe, with possible pneumonia. However, with no current symptoms will avoid continued antibiotics at this time and may have been viral in nature. 2. OSCAR - sceondary to above - continue IV fluids - Cr continues to improve this morning, now 1.32 3. Hypomagnesemia - repleted at 1.5, will repeat lab tomorrow 4. Acute respiratory failure with hypoxia, POA, resolved - some recent flu like symptoms, dyspnea. - no leukocytosis, CXR is negative. - consider echo, but favor adrenal crisis as the etiology rather than cardiac or infectious sources, CTA with possible PNA but further discussed above. Will continue to hold on antibiotics unless there is clinical change. Code: Full, surrogate is patient's spouse DVT: Lovenox daily I have utilized all available immediate resources to obtain, update, or review the patient's current medications. Dispo: patient admitted under inpatient status to the ICU initially by overnight provider, now stable for regular floor Likely discharge home after 2-3 days. Additional history obtained via discussions with the overnight provider. These discussions contributed to the creation of the above assessment and plan. I have reviewed patient's presenting documentation, labs, and imaging personally. Time-Based Coding :: [TOTAL MINUTES] spent with patient and on the chart (including review of chart, obtaining history, exam, reviewing outside data, placing orders, documenting exam and treatment plan, and counseling patient) on [DATE].
--- NOTE | 2024-10-09 15:36 | CM.DANOTE ---
Patient is a 59 yo male who was admitted INPT Status on 10/09/24 for Adrenal Crisis. Pt has REG [employer] for insurance and his PCP is Dr. Ko Alvarado at [facility] in [place]. EMR was reviewed. Per MD, pt with a hx of recent Lap Christine at [facility] two months ago and now admitted for Adrenal/Hettinger's crisis and still with low sodium and increased potassium and likely 2-3 days of treatment before stable for discharge. Per RN, pt has been independent in room and no concerns noted. SW met bedside with patient and explained role and he confirms that he lives in [place] out near [place] off [place] [address] with his and he has local supportive adult Dtr and adult Son. Pt is independent at baseline, works, and drives and does not use DME for ambulation. Pt denies any formal POA or Advanced Directives. Pt states that his is currently out of the country visiting family and will not be back home for a couple weeks. Pt denies any hx of HH or SNF. Pt does not anticipate any discharge planning needs and his preference is home when stable and confirms that either his local Dtr or Son can provide transport at d/c. Plan: SW to follow for plan of discharge home when medically stable and any further identified discharge planning needs. JUAN Cooley Discharge Planning/Care Management CM Discharge Assessment Start: 10/09/24 15:30 Freq: Status: Active Protocol: Document 10/09/24 15:30 BF (Rec: 10/09/24 15:35 BF [id number]) Discharge Planning Assessment Assigned Departmental Secretary JUAN Patino DPOA/Assigned Designee Name none, informally spouse Advance Directives? No Advance Directives on File No History Provided By Patient,Medical Record Has Patient been admitted in last 30 No days? Comment At [facility] 2 months ago for Lap Christine Prior Living Arrangements House Household Members significant other,family Comment Lives with spouse and has local son Type of transporation used prior to Drives own vehicle admit Independent with ADL's Yes Is patient alert and oriented? Yes Caregiver for Another No Barriers to Discharge No Discharge Plan Home Transportation Arrangement Patient's Dtr works next door and likely can provide transport if needed or his son Referrals Initiated None needed Whiteboard Updated in Patient Room with Yes name and ext. # of Departmental Secretary Review Status In Process Please Provide Date Initial DC 10/09/24 Assessment Was Performed Next Review Type Continued Stay Review
[2024-10-09 16:10] LABS: BUN Creatinine Ratio 24.8 (6-22); Blood Urea Nitrogen 33 mg/dL (9-20); Calcium 8.6 mg/dL (8.4-10.2); Carbon Dioxide 16 mmol/L (22-32); Chloride 99 mmol/L (98-107); Estimated Glomerular Filt Rate > 60 mL/min (>60); Glucose 103 mg/dL (70-100); HEMOLYSIS < 15 (0-50); Potassium 5.4 mmol/L (3.4-5.1); Sodium 125 mmol/L (137-145)
[2024-10-09 20:07] LABS: BUN Creatinine Ratio 21.7 (6-22); Blood Urea Nitrogen 30 mg/dL (9-20); Calcium 8.6 mg/dL (8.4-10.2); Carbon Dioxide 18 mmol/L (22-32); Chloride 98 mmol/L (98-107); Estimated Glomerular Filt Rate 59 mL/min (>60); Glucose 126 mg/dL (70-100); HEMOLYSIS < 15 (0-50); Potassium 4.9 mmol/L (3.4-5.1); Sodium 128 mmol/L (137-145)
[2024-10-09 23:24] LABS: BUN Creatinine Ratio 21.1 (6-22); Blood Urea Nitrogen 28 mg/dL (9-20); Calcium 8.6 mg/dL (8.4-10.2); Carbon Dioxide 19 mmol/L (22-32); Chloride 99 mmol/L (98-107); Estimated Glomerular Filt Rate > 60 mL/min (>60); Glucose 116 mg/dL (70-100); HEMOLYSIS 44 (0-50); Potassium 5.1 mmol/L (3.4-5.1); Sodium 127 mmol/L (137-145)
[2024-10-10] VITALS: BP 103/64; PULSE 73; RESP 17; TEMP 36.2; O2SAT 98
[2024-10-10 04:00] VITALS: BP 106/58; PULSE 87; RESP 17; TEMP 36.3; O2SAT 98
[2024-10-10 04:07] VITALS: BP 106/58; PULSE 87; O2SAT 98
[2024-10-10 04:53] LABS: Add Manual Diff / Slide Review NO; Basophils Absolute Auto 0 /uL (0-100); Basophils Percent Auto 0.2 % (0-2); Eosinophils Absolute Auto 0 /uL (0-450); Eosinophils Percent Auto 0.1 % (2-4); Hematocrit 38.4 % (41-53); Hemoglobin 13.7 g/dL (13.5-17.5); Lymphocytes Absolute Auto 2500 /uL (1100-4500); Lymphocytes Percent Auto 25.1 % (25-40); Mean Corpuscular HGB Conc 35.7 % (30-36); Mean Corpuscular Volume 84.2 fL (80-100); Monocytes Absolute Auto 500 /uL (0-900); Monocytes Percent Auto 4.7 % (3-14); Neutrophils Absolute Auto 7000 /uL (1500-7000); Neutrophils Percent Auto 69.9 % (50-75); Platelet Count 137 X10^3/uL (150-400); Red Blood Cell Count 4.56 X10^6/uL (4.5-5.9); Red Cell Distribution Width 15.2 % (11.6-14.8)
[2024-10-10 05:04] LABS: Blood Urea Nitrogen 25 mg/dL (9-20); Carbon Dioxide 17 mmol/L (22-32); Chloride 101 mmol/L (98-107); HEMOLYSIS < 15 (0-50); Sodium 128 mmol/L (137-145)
[2024-10-10 05:05] LABS: BUN Creatinine Ratio 18.4 (6-22); Calcium 8.5 mg/dL (8.4-10.2); Estimated Glomerular Filt Rate > 60 mL/min (>60); Glucose 126 mg/dL (70-100); Magnesium 1.9 mg/dL (1.6-2.3)
[2024-10-10 06:24] LABS: Creatine Kinase 31 U/L (55-170)
[2024-10-10 08:00] VITALS: TEMP 36.5
[2024-10-10] MEDS: SODIUM CHLORIDE 1,000 MG TABLET 1000 MG PO (08:32)
[2024-10-10] MEDS: FLUDROCORTISONE 0.1 MG TABLET PO (08:32)
[2024-10-10] MEDS: HEPARIN 5,000 UNIT/ML VIAL 5000 UNIT SUBCUT (08:32)
[2024-10-10] MEDS: SODIUM CHLORIDE 0.9% FLUSH 10 ML IV (08:32)
[2024-10-10] MEDS: HYDROCORTISONE 10 MG TABLET 30 MG PO (08:32)
[2024-10-10 09:17] VITALS: BP 101/68; PULSE 84; O2SAT 94
--- NOTE | 2024-10-10 10:11 | PM.DS.1 ---
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 Denies cough, fevers or chills, CP, Abd Pain, N/V/D, lihjt Headedness or Syncope. No h/o [place], PE, DM, HTN, or Stroke He was admitted with Adrenal Crisis sec to having been non compliant with his medications ( Cortisol and Fludrcortisone) in Jun 2024, and stress sec to a gangrenous appendicitis amd moderate OSCAR ( creat 3+ at that time) and was transferred to higher level care where a ball truing machine operator was available to see pt if Renal function would deteriorate any further. Pt states he had his gb inflamed about 2 months ago and had a lap joann done at a [facility] [place], at that time.( 2 months ago) Given his shortness of breath and gen weakness, he called his son, who brought him to ED for evaluation. In the ED he was moderately hypoxic ( O2 sats in 80s on RA) , Tachycardiac HR at 105, BPS : 109/69, RR 30, Afebrile He was requiring 5 L O2 via nc to keep sats > 93% Labs remarkable for Hyperkalemia, Hyponatremia, OSCAR, CO2 was low at 14 , Creat up at 1.94/ BUN 49, Calcium 9.7 VBG / ABG ordering malfunctioning in ED so was not done. Interval history: This morning he feels much improved. He denies chest pain, shortness of breath, palpitations, dizziness. Sodium remains slightly low and potassium high, no EKG changes, telemetry thus far unremarkable. Cr is improving thus far. He felt like he had the flu for a couple days prior to not taking his medications, with dyspnea on exertion primarily with going up stairs. He denied edema. He reports these have all resolved now. Discharge Providers Provider Date of admission: 10/09/24 00:23 Discharge Date: 10/10/24 Primary care physician: Ko Alvarado MD Consults: 10/09/24 00:34 Consult to Dietitian, Adult Routine Comment: Reason For Exam: weight loss in the last 3 months, more than 6lbs Discharge provider: Yang Smith DO Summary Hospital Course Discharge Diagnosis: 1. Adrenal/addisonian crisis, POA, active with hyponatremia and hyperkalemia 2. OSCRA, POA, improved 3. Hypomagnesemia, POA, improved 4. Acute respiratory failure with hypoxia, POA, resolved Hospital Course: This is a 59-year-old male with a past medical history of [place]'s disease, who was admitted with an addisonian crisis with hyponatremia and hyperkalemia. He rapidly improved, much quicker than expected on hydrocortisone. He presented after not taking his medications for a couple of days due to shortness of breath and weakness and inability to get up his stairs. His respiratory symptoms that had precipitated this event had resolved prior to his admission, though he was mildly hypoxemic in the emergency room. CTA of his chest showed possible pneumonia but he had no clinical symptoms and was not continued on antibiotics while admitted. He was very dehydrated and continues on fluids and hydrocortisone IV initially. He completed 24 hours of hydrocortisone therapy. He had no symptoms the following day and felt well, and we discussed either continued IV steroids or transition to his home medications and the patient elected to continue his home medications. He continued to feel well and wished to discharge home. Instructed him to watch his blood pressure and if he continued to feel weak take another dose of his home hydrocortisone tonight, but otherwise he can continue his regular medications without change upon discharge. Time Spent with Patient Time spent: Greater than 30 minutes Exam Vital Signs (past 8 hours): - 10/10/24 04:00 10/10/24 04:07 10/10/24 04:07 Temperature 97.3 F L Pulse Rate 87 87 Respiratory Rate 17 Blood Pressure 106/58 L 106/58 L Pulse Oximetry 98 98 Oxygen Delivery Method Oxygen Flow Rate 0 10/10/24 08:00 10/10/24 09:05 10/10/24 09:17 Temperature 97.7 F Pulse Rate Respiratory Rate Blood Pressure 101/68 Pulse Oximetry Oxygen Delivery Method Room Air Oxygen Flow Rate 10/10/24 09:17 Temperature Pulse Rate 84 Respiratory Rate Blood Pressure Pulse Oximetry 94 Oxygen Delivery Method Oxygen Flow Rate Oxygen Delivery Method Room Air Oxygen Flow Rate 0 Narrative Exam Narrative: General:? Patient is well developed and well nourished, in no distress at this time. Lungs:? CTA b/l no wheezing rhonchi or rales. Cardio:?RRR no m/r/g. Abdomen: S NT ND. Musculoskeletal:? Muscle strength and tone are equal within normal limits, no deformity. Extremities: No edema or joint effusions. No cyanosis or clubbing. Objective Labs 10/10/24 04:00 10/10/24 04:00 Labs: Laboratory Results - last 24 hr 10/09/24 10/09/24 10/09/24 10:00 15:44 19:45 WBC RBC Hgb Hct MCV MCH MCHC RDW Plt Count Neut % (Auto) Lymph % (Auto) [place] % (Auto) Eos % (Auto) Baso % (Auto) Neut # (Auto) Lymph # (Auto) [place] # (Auto) Eos # (Auto) Baso # (Auto) Sodium 125 L 125 L 128 L Potassium 6.2 H 5.4 H 4.9 Chloride 98 99 98 Carbon Dioxide 15 L 16 L 18 L BUN 36 H 33 H 30 H Creatinine 1.32 H 1.33 H 1.38 H Estimated GFR > 60 > 60 59 L BUN/Creatinine Ratio 27.3 H 24.8 H 21.7 Glucose 109 H 103 H 126 H Calcium 8.8 8.6 8.6 Magnesium Total Creatine Kinase 10/09/24 10/10/24 22:50 04:00 WBC 10.0 D RBC 4.56 Hgb 13.7 Hct 38.4 L MCV 84.2 MCH 30.0 MCHC 35.7 RDW 15.2 H Plt Count 137 L Neut % (Auto) 69.9 Lymph % (Auto) 25.1 [place] % (Auto) 4.7 Eos % (Auto) 0.1 L Baso % (Auto) 0.2 Neut # (Auto) 7000 Lymph # (Auto) 2500 [place] # (Auto) 500 Eos # (Auto) 0 Baso # (Auto) 0 Sodium 127 L 128 L Potassium 5.1 5.0 Chloride 99 101 Carbon Dioxide 19 L 17 L BUN 28 H 25 H Creatinine 1.33 H 1.36 H Estimated GFR > 60 > 60 BUN/Creatinine Ratio 21.1 18.4 Glucose 116 H 126 H Calcium 8.6 8.5 Magnesium 1.9 Total Creatine Kinase 31 L PFSH Medical History Hypothyroid Addisons disease Surgical History No pertinent past surgical history Social History household members: significant other and family Smoking Status: Never smoker alcohol intake: current Discharge Plan Discharge Plan Patient Disposition: Home Provider Discharge Comment: You were admitted to the hospital with an adrenal crisis, continue regular home steroids. You can take an extra dose of hydrocortisone tonight if you begin to feel dizzy or off tonight, but if you feel okay continue usual home medications. Discharge orders & Medications Prescriptions: Continued levothyroxine 100 mcg Tablet 100 mcg PO DAILY Qty: 0 hydrocortisone 20 mg Tablet 30 mg PO DAILY fludrocortisone 0.1 mg Tablet 0.1 mg PO DAILY Follow up/Referrals: Anam Watson MD [Non-Staff] - Ko Alvarado MD [Primary Care Provider] - Diet/Activity/Treatments Diet: Diet as Tolerated and Regular Activity: As tolerated, no restrictions Visit Report/Discharge Packet Instructions: Adrenal Crisis Stand Alone Forms: Patient Portal/API, Stroke Signs & Symptoms Discharge Data Primary Care Provider: Ko Alvarado
--- NOTE | 2024-10-10 10:53 | CM.DPNOTE ---
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 Per RN, no new CM needs likely. Provider to write work excuse letter. P: home today with no CM needs. family to transport at de. WIll continue to follow as needed JUAN Rosario
[2024-10-10 14:12] LABS: Osmolality Urine 536 mOsmol/kg (.)
== END 2024-10-10 13:15 | disposition home or self-care (01) | DRG 643 ==
LOC: ED 21:31 → AC 10-09 00:24 → ICU 10-09 00:51
PROVIDERS: Internal Medicine; Admitting Provider Hospitalist; Emergency Provider Student in an Organized Health Care Education/Training Program; PCP Family Medicine; Referring Provider Family Medicine; Visit Provider Hospitalist
DX: E27.2 Addisonian crisis (principal); J96.01 Acute respiratory failure with hypoxia; E87.1 Hypo-osmolality and hyponatremia; N17.9 Acute kidney failure, unspecified; E87.5 Hyperkalemia; E83.42 Hypomagnesemia; E86.0 Dehydration; E03.9 Hypothyroidism, unspecified; Z79.890 Hormone replacement therapy; Z79.52 Long term (current) use of systemic steroids
CPT/HCPCS: 0241U; 36415; 71045; 71275; 80048; 80053; 81003; 82550; 82570; 82962; 83605; 83735; 83880; 83935; 84133; 84145; 84300; 84484; 85025; 85610; 87040; 87797; 93005; 96361; 96365; 96375; 99285; J0612; J1644; J1720; J3475; Q9967

== ENCOUNTER 2025-05-16 07:45 | Emergency (ER) | payer OTHER, SELFPAY ==
[2024-10-09 00:27] VITALS: BMI 27.3
[2025-05-16 07:48] VITALS: BMI 26.2
--- NOTE | 2025-05-16 08:14 | ED.CPR ---
HPI - CPR General Chief Complaint: Unresponsive Stated Complaint: Fever, found on ground this morning Time Seen by Provider: 05/16/25 08:13 Mode of arrival: Family Vehicle History of Present Illness HPI narrative: 60-year-old gentleman past medical history of [place]'s disease chronically on steroids was not feeling well over the weekend when he had subjective fever and today son noticed responsive found down incontinent of stool at home brought in by private vehicle for further evaluation. Patient has not been feeling well since Wednesday but due to financial reasons family did not want to call EMS. Elena montoya was called at triage patient was slumped over on a wheelchair with no pulse. MD complaint: found unresponsive, stopped breathing and unknown Onset (ago): unknown Timing confirmed by: family member Place: home Bystander CPR performed: No AED applied by bystander/news production supervisor: No Shock advised: No Initial findings in the field: lethargic Related Data Home Medications ?Medication ?Instructions ?Recorded ?Confirmed levothyroxine 100 mcg tablet 100 mcg PO DAILY ##0 06/07/12 02/15/25 fludrocortisone 0.1 mg tablet 0.1 mg PO DAILY 04/02/18 02/15/25 hydrocortisone 20 mg tablet 30 mg PO DAILY 04/02/18 02/15/25 Allergies Allergy/AdvReac Type Severity Reaction Status Date / Time No Known Drug Allergies Allergy Verified 05/16/25 08:07 Review of Systems Review of Systems ROS Unobtainable: Unobtainable due to mental status/LOC Patient History Medical History Hypothyroid Addisons disease Surgical History No pertinent past surgical history Social History household members: significant other and family alcohol intake: current alcohol intake frequency: 0-2 drinks per day Exam Narrative Exam Narrative: GENERAL: [60] year old patient appears older than stated age found unresponsive HEAD: Atraumatic. Normocephalic. EYES: Pupils sluggish and miminally responsive. ENT: Nose without bleeding, purulent drainage. Throat without erythema, tonsillar hypertrophy or exudate. Airway patent. NECK: Trachea midline. Non tender Heart: No heartbeat detected RESPIRATORY: No spontaneous chest rise or breathing GASTROINTESTINAL: Abdomen soft, non-tender, nondistended. EXTREMITIES: No edema or joint tenderness. BACK: Nontender without deformity or crepitance. No flank tenderness. NEURO: Unresponsive. SKIN: No rash or erythema of visible areas Procedures Intubation Time of Intubation: 07:52 Time out performed: Yes sedative: none Laryngoscope: fiber optic video scope ET Tube Size: 7.5 ET Tube Uncuffed: Yes Tube Secured Depth (cm): 24 Tube Secured Location: lips Tube Placement Confirmation: Visualized tube passing through cords, Equal breath sounds bilaterally and Confirmation by capnometry Patient Tolerated Procedure: No complications Intubation Complications: none Course Orders Ordered: ED Orders 05/16/25 07:55 Complete Blood Count AUTO DIFF Stat Comprehensive Metabolic Panel Stat Lipase Stat Magnesium Stat NT-proBNP (BNP-Adult 18+) Stat PTT Partial Thromboplastin [place] Stat Prothrombin Time INR Stat Troponin & CK Cardiac Panel Stat 05/16/25 08:37 EKG-12 Lead Stat MDM - Cardiac Arrest/CPR Lab Data 05/16/25 07:55 05/16/25 07:55 Labs: Lab Results 05/16/25 Range/Units 07:55 WBC 14.3 H (4.5-11.0) X10^3/uL RBC 4.35 L (4.5-5.9) X10^6/uL Hgb 12.9 L (13.5-17.5) g/dL Hct 38.5 L (41-53) % MCV 88.5 (80-100) fL MCH 29.8 (26-34) PG MCHC 33.7 (30-36) % RDW 14.6 (11.6-14.8) % Plt Count 127 L (150-400) X10^3/uL Neut % (Auto) 50.5 (50-75) % Lymph % (Auto) 35.4 (25-40) % Winkler % (Auto) 13.8 (3-14) % Eos % (Auto) 0.1 L (2-4) % Baso % (Auto) 0.2 (0-2) % Neut # (Auto) 7200 H (3435-4179) /uL Lymph # (Auto) 5100 H (7637-3796) /uL Winkler # (Auto) 2000 H (0-900) /uL Eos # (Auto) 0 (0-450) /uL Baso # (Auto) 0 (0-100) /uL PT 17.5 H (9.4-12.5) SECONDS INR 1.6 H (0.9-1.3) APTT 43 H (25.1-36.5) SECONDS Sodium 137 (137-145) mmol/L Potassium 3.7 (3.4-5.1) mmol/L Chloride 110 H (98-107) mmol/L Carbon Dioxide 7 L* (22-32) mmol/L BUN 26 H (9-20) mg/dL Creatinine 3.08 H (0.66-1.25) mg/dL Estimated GFR 22 L (>60) mL/min BUN/Creatinine Ratio 8.4 (6-22) Glucose 31 L* (70-99) mg/dL Calcium 6.6 L (8.4-10.2) mg/dL Magnesium 1.2 L (1.6-2.3) mg/dL Total Bilirubin 1.2 (0.2-1.3) mg/dL AST 234 H (17-59) IU/L ALT 110 H (<50) IU/L Alkaline Phosphatase 55 (38-126) U/L Total Creatine Kinase 6090 H (55-170) U/L Troponin I 0.090 H (0.01-0.034) ng/mL NT-Pro-B Natriuret Pep 2960 H (<125) pg/mL Total Protein 5.3 L (6.3-8.2) g/dL Albumin 2.7 L (3.5-5.0) g/dL Globulin 2.6 (1.7-4.1) g/dL Albumin/Globulin Ratio 1.0 (1.0-2.8) Lipase 231 (23-300) U/L Discharge Plan Departure Patient Disposition: Clinical Impression: Cardiac arrest
[2025-05-16 08:44] LABS: Add Manual Diff / Slide Review NO; Hematocrit 38.5 % (41-53); Hemoglobin 12.9 g/dL (13.5-17.5); Lymphocytes Absolute Auto 5100 /uL (1100-4500); Mean Corpuscular HGB Conc 33.7 % (30-36); Mean Corpuscular Hemoglobin 29.8 PG (26-34); Mean Corpuscular Volume 88.5 fL (80-100); Platelet Count 127 X10^3/uL (150-400)
[2025-05-16 08:48] LABS: INR 1.6 (0.9-1.3); Prothrombin Time 17.5 SECONDS (9.4-12.5)
[2025-05-16 08:50] LABS: PTT Partial Thromboplastin Tim 43 SECONDS (25.1-36.5)
[2025-05-16 08:57] LABS: Alanine Aminotransferase 110 IU/L (<50); Albumin 2.7 g/dL (3.5-5.0); Albumin Globulin Ratio 1.0 (1.0-2.8); Alkaline Phosphatase 55 U/L (38-126); Blood Urea Nitrogen 26 mg/dL (9-20); Calcium 6.6 mg/dL (8.4-10.2); Chloride 110 mmol/L (98-107); Estimated Glomerular Filt Rate 22 mL/min (>60); Globulin 2.6 g/dL (1.7-4.1); Lipase 231 U/L (23-300); Magnesium 1.2 mg/dL (1.6-2.3); Potassium 3.7 mmol/L (3.4-5.1); Sodium 137 mmol/L (137-145); Total Protein 5.3 g/dL (6.3-8.2)
[2025-05-16 08:59] LABS: Carbon Dioxide 7 mmol/L (22-32)
[2025-05-16 09:00] LABS: Glucose 31 mg/dL (70-99)
[2025-05-16 09:05] LABS: NT-proBNP (BNP-Adult 18+) 2960 pg/mL (<125); Troponin I 0.090 ng/mL (0.01-0.034)
[2025-05-16 09:13] LABS: Creatine Kinase 6090 U/L (55-170); HEMOLYSIS 54 (0-50)
--- NOTE | 2025-05-16 10:26 | CM.SWNOTE ---
ED MANAGER APPOINTMENT Assessment Note: Pt is a 60yo male, resident of [place], presented to the ED with Code Blue activation and at 0811. Pt lives with his son, Miguel. Reviewed chart and discussed with multidisciplinary team pt's medical status, MANAGER APPOINTMENT consulted to assist with family bereavement navigation. MANAGER APPOINTMENT entered room to meet with patient, introduced self and role. Present in the room is pt's son, Miguel, and Asset CoordinatorAb. Pt son is found to be tearful and in shock, he is hoping to return home to have time to rest and re-collect himself. 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 Patient son reports he has an appt with his PCP next week for a telehealth visit requesting psych medications to assist with his mood. Pt son is hopeful to see his PCP sooner to assist with acute grief (PCP: [facility]). Pt son reports his mother and sister who live in [place] are trying to coordinate flights to [place]. MANAGER APPOINTMENT assisted in communicating questions/answers between Linda and pt son to retouching operator who was speaking with Clerical Grader. Per retouching operator, pt son can go home and no other paperwork needs to be signed at this time. MANAGER APPOINTMENT reached out to [facility] to inquire about possible coordination for a flight for pt and daughter due to financial hardship, it is reported that they are not able to assist with international flights. MANAGER APPOINTMENT discussed further with pt son about going home alone and if he would consider checking into the ED for sooner assistance. Pt son confirms that he does not want to do this due to financial reasons, confirms he feels safe with leaving the ED today and would have a preference with seeing a clinic provider as soon as available in the afternoon. MANAGER APPOINTMENT calls [address] [place] [address] [facility] and it is reported pt son PCP is not available all week but a provider can see him tomorrow, 05/17 at 4:15pm with Melissa Raphael PA-C. medical office asst graciously scheduled pt son for that appt time. MANAGER APPOINTMENT identified that [facility] as pt son's EAP who could be available for bereavement support. Pt son provided with their contact information. MANAGER APPOINTMENT provided contact information for ED MANAGER APPOINTMENT in case son needs additional information, he consents to this MANAGER APPOINTMENT leaving him voice messages today with any updates re: his pending appt. MANAGER APPOINTMENT left a voice message for pt son re: his scheduled appointment and additional support through [facility]. MICHAEL Curran
--- NOTE | 2025-05-16 15:24 | PC.NURSE ---
Follow up . called international coordinator. spoke with Yvonne initially. followup calls to [facility] and [facility]. They are waiting to approach the family. , Son at discharge was still deciding on the home. I updated the Procurement ([facility])
--- NOTE | 2025-05-16 17:48 | PC.NURSE ---
1723 called and spoke with Yina from [facility]. I did make the staff at [facility] aware that we don't have a morgue. Yina gave permission to release the body. 1718 I called Miguel, son. offered support and asked him if he decided on a home for his dad. Miguel (son) was not sure. I suggested [facility]. Miguel reports that will be fine. I called Yina at [facility] to update her. [facility] called.
== END 2025-05-16 18:18 | disposition expired ==
PROVIDERS: Emergency Provider Family Medicine; PCP Family Medicine
DX: I46.9 Cardiac arrest, cause unspecified (principal)
CPT/HCPCS: 31500; 80053; 82550; 83690; 83735; 83880; 84484; 85025; 85610; 85730; 92950; 94799; 99282; 99291; J0165; J0282; J1720; J2312